=== PATIENT | female | born 1990 ===

== ENCOUNTER 2016-07-24 03:27 | Observation (INO) | payer MEDICAID, OTHER ==
[2016-07-24 03:28] VITALS: BMI 21.9
[2016-07-24 03:45] VITALS: BP 115/70; PULSE 91; RESP 16; TEMP 97.9; O2SAT 100
--- NOTE | 2016-07-24 04:41 | ED PDOC ---
HPI: Female Pain Time Seen by Provider: 07/24/16 03:30 Chief Complaint (Nursing): Female Genitourinary Chief Complaint (Provider): burning urination, dysuria History Per: Patient History/Exam Limitations: no limitations Onset/Duration Of Symptoms: Days (1) Current Symptoms Are (Timing): Still Present Additional Complaint(s): 26yo female EGA 4 months and with PMHx including kidney stones, liver inflammation, cholecystectomy presents to the ED w/ c/o burning urination, dysuria, and associated nausea x 1 day. Patient reports she is taking her vitamins, but has not seen a floor inspector during this and has not had a US during this . Denies vaginal bleeding or any other medical complaints. : 3 Para: 2 Past Medical History Reviewed: Historical Data, Nursing Documentation, Vital Signs Vital Signs: Last Vital Signs Temp 97.9 F 07/24/16 03:39 Pulse 91 H 07/24/16 03:39 Resp 16 07/24/16 03:39 BP 115/70 07/24/16 03:39 Pulse Ox 100 07/24/16 03:39 - Medical History PMH: Anxiety, Bipolar Disorder, Depression, Kidney Stones, Chronic Kidney Disease, Schizophrenia Denies: Diabetes, Hepatitis, HIV, HTN, Seizures, Sexually Transmitted Disease Other PMH: liver inflammation - Surgical History Surgical History: Cholecystectomy, Tonsillectomy - Family History Family History: States: No Known Family Hx - Social History Current smoker - smoking cessation education provided: No Alcohol: None Drugs: Denies - Immunization History Hx Tetanus Toxoid Vaccination: No Hx Influenza Vaccination: No Hx Pneumococcal Vaccination: No - Home Medications Home Medications: Ambulatory Orders Medication Instructions Recorded Multivit/Folic Acid/I 1 tab PO DAILY #100 tab 06/08/16 [] risperiDONE [RisperDAL Tab] 2 mg PO HS #30 tab 06/21/16 - Allergies Allergies/Adverse Reactions: Allergies Allergy/AdvReac Type Severity Reaction Status Date / Time No Known Allergies Allergy Verified 06/15/16 18:40 Review of Systems ROS Statement: Except As Marked, All Systems Reviewed And Found Negative Gastrointestinal: Positive for: Nausea Genitourinary Female: Positive for: Dysuria, Other (burning urination ). Negative for: Vaginal Bleeding Physical Exam - Reviewed Nursing Documentation Reviewed: Yes Vital Signs Reviewed: Yes - Physical Exam Appears: Positive for: Well, No Acute Distress Head Exam: Positive for: ATRAUMATIC, NORMAL INSPECTION, NORMOCEPHALIC Skin: Positive for: Normal Color, Warm, Dry Eye Exam: Positive for: Normal appearance, EOMI, PERRL ENT: Positive for: Normal ENT Inspection Neck: Positive for: Normal, Painless ROM, Supple Cardiovascular/Chest: Positive for: Regular Rate, Rhythm. Negative for: Murmur , Tachycardia Respiratory: Positive for: Normal Breath Sounds. Negative for: Wheezing, Respiratory Distress Gastrointestinal/Abdominal: Positive for: Normal Exam, Bowel Sounds, Soft. Negative for: Tenderness Back: Positive for: Normal Inspection. Negative for: L CVA Tenderness, R CVA Tenderness Extremity: Positive for: Normal ROM. Negative for: Deformity, Swelling Neurologic/Psych: Positive for: Alert, Oriented. Negative for: Motor/Sensory Deficits - ECG O2 Sat by Pulse Oximetry: 100 Pulse Ox Interpretation: Normal (RA) Medical Decision Making Medical Decision Makin: Impression: burning urination and dysuria in setting of Plan: Zofran 4mg PO UA and culture US OB reassess Patient s/o to Dr. Peters at 0700 pending US and UA Scribe Attestation: Documented by Mary Grace Nair acting as a scribe for Darby Pacheco MD. Provider Scribe Attestation: All medical record entries made by the Scribe were at my direction and personally dictated by me. I have reviewed the chart and agree that the record accurately reflects my personal performance of the history, physical exam, medical decision making, and the department course for this patient. I have also personally directed, reviewed, and agree with the discharge instructions and disposition. ED OBSERVATION Date of observation admission: 07/24/16 Time of observation admission: 05:00 - Observation admission statement Patient is being placed in observation because:: burning urination, dysuria in - Goals of Observation Goals of observation are:: pending US Disposition - Clinical Impression Clinical Impression: Genitourinary Pain - Patient ED Disposition Is Patient to be Admitted: Transfer of Care - Disposition Disposition: Transfer of Care Disposition Time: 07:00 Condition: STABLE Patient Signed Over To: Perez Peters Handoff Comments: pending US
[2016-07-24 05:29] LABS: RBC URINE 82 /hpf (0-3); URINE BILIRUBIN NEGATIVE (NEGATIVE); URINE BLOOD MODERATE (NEGATIVE); URINE COLOR YELLOW (YELLOW); URINE GLUCOSE (UA) NEG (Normal); URINE KETONE NEGATIVE (NEGATIVE); URINE LEUKOCYTE ESTERASE TRACE Leu/uL (Negative); URINE PROTEIN NEGATIVE (NEGATIVE); URINE UROBILINOGEN 0.2-1.0 mg/dL (0.2-1.0); WBC URINE 4 /hpf (0-5)
--- NOTE | 2016-07-24 07:08 | ED PDOC ---
- Laboratory Results Interpretation Of Abn Labs: leuk trace - ECG O2 Sat by Pulse Oximetry: 100 Pulse Ox Interpretation: Normal - CT Scan/US US Other Rad Studies (CT/US): Radiology Report Reviewed Other Rad Interpretation: no acute - Progress ED Course And Treament: 924: Pt. had urine preg test done in ER. Neg for preg. Pt. US with no findings. Pt. to fu with pcp. Has possible uti. Is symptomatic uti. AAOx3. Pain free. Tolerated PO. Active. Medical Decision Making Medical Decision Making: Time: 0700 Patient signed out by Dr. Pacheco pending U/S Scribe Attestation: Documented by Ann Bethea acting as a scribe for Perez Peters MD MD Scribe Attestation: All medical record entries made by the Scribe were at my direction and personally dictated by me. I have reviewed the chart and agree that the record accurately reflects my personal performance of the history, physical exam, medical decision making, and the department course for this patient. I have also personally directed, reviewed, and agree with the discharge instructions and disposition. Disposition - Clinical Impression Clinical Impression: Urinary tract infection - POA Present On Arrival: None - Disposition Disposition: Routine/Home Disposition Time: 09:25 Condition: STABLE
--- NOTE | 2016-07-24 10:21 | US ---
HISTORY: early COMPARISON: None available. TECHNIQUE: Transabdominal and transvaginal pelvic ultrasound was performed. FINDINGS: UTERUS: Measures 7.8 x 6.4 x 4.7 cm. Anteverted, normal in size and appearance. No of intrauterine gestation. ENDOMETRIUM: Measures 10 mm in diameter. Normal in appearance. CERVIX: No cervical abnormality identified. RIGHT OVARY: Measures 2.5 x 2.1 x 1.3 cm. No solid mass. Normal flow. LEFT OVARY: Measures 3.2 x 2.7 x 2.7 cm. No solid mass. Normal flow. FREE FLUID: No significant free fluid noted. OTHER FINDINGS: None. IMPRESSION: Normal pelvic ultrasound. No evidence of intrauterine gestation, adnexal mass or free fluid in the pelvis. Correlation with Beta HCG levels and ultrasound follow-up is recommended.
== END 2016-07-24 09:38 | disposition home or self-care (01) ==
LOC: H.ER 03:27 → H.EROBSV 05:05
PROVIDERS: ADMIT Emergency Medicine; ATTEND Emergency Medicine
DX: N39.0 Urinary tract infection, site not specified (principal); F20.9 Schizophrenia, unspecified; F31.9 Bipolar disorder, unspecified; N18.9 Chronic kidney disease, unspecified; F41.9 Anxiety disorder, unspecified

== ENCOUNTER 2016-07-25 21:49 | Emergency (ER) | payer MEDICAID ==
[2016-07-25 21:49] VITALS: BMI 21.9
[2016-07-25 21:56] VITALS: BP 104/63; PULSE 83; RESP 16; TEMP 98.2; O2SAT 100
--- NOTE | 2016-07-25 22:15 | ED PDOC ---
HPI: Abdomen Time Seen by Provider: 07/25/16 21:58 Chief Complaint (Nursing): Back Pain Chief Complaint (Provider): adominal pain History Per: Patient Additional Complaint(s): 26-year-old female presents to emergency department with generalized abdominal pain that started yesterday. Patient states "my gallbladder hurts." Patient is status post gallbladder removal 1 month ago. She denies persistent pain since the surgery. Since yesterday she rates pain as 6 out of 10. No associated nausea , vomiting, diarrhea or constipation. She denies dysuria, vaginal bleeding or vaginal discharge. No associated chest pain, shortness of breath or dyspnea on exertion. Past Medical History Reviewed: Historical Data, Nursing Documentation, Vital Signs Vital Signs: Last Vital Signs Temp 98.2 F 07/25/16 21:53 Pulse 83 07/25/16 21:53 Resp 16 07/25/16 21:53 BP 104/63 07/25/16 21:53 Pulse Ox 100 07/26/16 03:07 - Medical History PMH: Anxiety, Bipolar Disorder, Depression, Kidney Stones, Schizophrenia - Surgical History Surgical History: Cholecystectomy, Tonsillectomy - Family History Family History: States: No Known Family Hx - Living Arrangements Living Arrangements: With Friends/Others - Social History Current smoker - smoking cessation education provided: Yes Alcohol: None Drugs: Denies - Home Medications Home Medications: Ambulatory Orders Medication Instructions Recorded Multivit/Folic Acid/I 1 tab PO DAILY #100 tab 06/08/16 [] risperiDONE [RisperDAL Tab] 2 mg PO HS #30 tab 06/21/16 Ciprofloxacin HCl [Cipro] 250 mg PO BID #6 tab 07/24/16 Naproxen [Naprosyn] 500 mg PO BID #20 tab 07/26/16 - Allergies Allergies/Adverse Reactions: Allergies Allergy/AdvReac Type Severity Reaction Status Date / Time No Known Allergies Allergy Verified 07/25/16 21:52 Review of Systems ROS Statement: Except As Marked, All Systems Reviewed And Found Negative Constitutional: Negative for: Fever, Chills Cardiovascular: Negative for: Chest Pain Respiratory: Negative for: Cough Gastrointestinal: Positive for: Abdominal Pain. Negative for: Nausea, Vomiting , Diarrhea, Constipation Genitourinary Female: Negative for: Dysuria, Frequency, Incontinence, Vaginal Discharge, Vaginal Bleeding Physical Exam - Reviewed Nursing Documentation Reviewed: Yes Vital Signs Reviewed: Yes - Physical Exam Appears: Positive for: Well, Non-toxic, No Acute Distress Skin: Negative for: Rash Cardiovascular/Chest: Positive for: Regular Rate, Rhythm Respiratory: Positive for: Normal Breath Sounds Gastrointestinal/Abdominal: Positive for: Tenderness (Mild diffuse tenderness with no rebound or guarding, no distention, abdomen is soft) Back: Negative for: L CVA Tenderness, R CVA Tenderness Extremity: Positive for: Normal ROM. Negative for: Pedal Edema Neurologic/Psych: Positive for: Alert, Oriented - Laboratory Results Result Diagrams: 07/25/16 22:30 07/25/16 22:30 Urine POC: Negative Urine dip results: Positive for: Blood (small). Negative for: Leukocyte Esterase, Nitrate, Ketones, Glucose, Bilirubin, Protein - ECG O2 Sat by Pulse Oximetry: 100 Pulse Ox Interpretation: Normal - Other Rad CT abd and pelvis with IV contrast X-Ray: Read By Radiologist X-Ray Interpretation: see below Medical Decision Making Medical Decision Makin26 year old with abdominal pain Plan: CBC CMP Lipase CXR CT abd and pelvis with IV contrast IVF IV toradol Urine test Urine dip CT: IMPRESSION: Involuting thick walled cyst within the left ovary, as detailed above. Fat and likely omentum containing umbilical hernia. Otherwise, unremarkable CT examination of the abdomen and pelvis, as detailed above. Patient feels much better after pain meds given, she is aware of all diagnostic testing results, all questions answered. Patient was referred to clinic for follow-up, prescription for Naprosyn was given. Disposition - Clinical Impression Clinical Impression: Abdominal pain - Patient ED Disposition Is Patient to be Admitted: No - Disposition Referrals: [facility] [Provider Group] Disposition: Routine/Home Disposition Time: 03:49 Condition: IMPROVED Additional Instructions: Take prescription medications as directed as needed for pain. Follow-up with primary care doctor or clinic for further evaluation. Prescriptions: Naproxen [Naprosyn] 500 mg PO BID #20 tab Instructions: Abdominal Pain (ED) Results - Lab Results Lab Results: 07/25/16 22:30 WBC 12.7 H RBC 3.74 L Hgb 11.7 L Hct 35.9 MCV 96.1 D MCH 31.3 H MCHC 32.6 L RDW 13.9 Plt Count 278 MPV 8.6 Neut % (Auto) 62.5 Lymph % (Auto) 26.9 Saunders % (Auto) 7.3 Eos % (Auto) 2.8 Baso % (Auto) 0.5 Neut # 8.0 H Lymph # 3.4 Saunders # 0.9 H Eos # 0.4 Baso # 0.1 Sodium 142 Potassium 4.1 Chloride 103 Carbon Dioxide 26 Anion Gap 16 BUN 17 Creatinine 0.7 Est GFR ( Amer) > 60 Est GFR (Non-Af Amer) > 60 Random Glucose 91 Calcium 9.4 Total Bilirubin 0.3 AST 29 ALT 12 Alkaline Phosphatase 65 Total Protein 7.9 Albumin 4.1 Globulin 3.8 Albumin/Globulin Ratio 1.1 Lipase 197
[2016-07-25] MEDS ORDERED: Sodium Chloride 0.9% 1,000 ML IV STA (22:17)
[2016-07-25 22:39] LABS: BASO # 0.1 K/uL (0.0-0.2); BASO % 0.5 % (0.0-2.0); EOS # 0.4 K/uL (0.0-0.7); EOS % 2.8 % (0.0-4.0); HEMATOCRIT 35.9 % (34.0-47.0); LYMPH # 3.4 K/uL (1.0-4.3); LYMPH % 26.9 % (20.0-40.0); MEAN CELL VOLUME 96.1 fl (81.0-99.0); MEAN CORPUSCULAR HEMOGLOBIN 31.3 pg (27.0-31.0); MEAN CORPUSCULAR HGB CONC 32.6 g/dL (33.0-37.0); MEAN PLATELET VOLUME 8.6 fl (7.2-11.7); MONO # 0.9 K/uL (0.0-0.8); MONO % 7.3 % (0.0-10.0); NEUT % 62.5 % (50.0-75.0); NRBC % 0.1 % (0.0-0.0); RED CELL DISTRIBUTION WIDTH 13.9 % (11.5-14.5); WHITE BLOOD COUNT 12.7 K/uL (4.8-10.8)
[2016-07-25 23:07] LABS: ALB/GLOB RATIO 1.1 (1.0-2.1); ALKALINE PHOSPHATASE 65 U/L (38-126); ALT/SGPT 12 U/L (9-52); AST/SGOT 29 U/L (14-36); BILIRUBIN,TOTAL 0.3 mg/dl (0.2-1.3); BLOOD UREA NITROGEN 17 mg/dl (7-17); CALCIUM 9.4 mg/dL (8.4-10.2); CARBON DIOXIDE 26 mmol/L (22-30); CHLORIDE 103 mmol/L (98-107); GFR AFRICAN-AMERICAN > 60; GLUCOSE,RANDOM 91 mg/dL (65-105); LIPASE 197 U/L (23-300); POTASSIUM 4.1 MMOL/L (3.6-5.0); SODIUM 142 mmol/l (132-148); TOTAL PROTEIN 7.9 G/DL (6.3-8.2)
[2016-07-26] MEDS ORDERED: Iohexol 300 100 ML IJ ONE (00:16)
[2016-07-26] MEDS ORDERED: Sodium Chloride 0.9% 50 ML IV ONE (00:17)
--- NOTE | 2016-07-26 10:23 | CT ---
PROCEDURE: CT Abdomen and Pelvis with contrast HISTORY: diffuse abd pain COMPARISON: 04/29/2016 TECHNIQUE: Contrast dose: Not indicated Radiation dose: Total exam DLP = 409.51 mGy-cm. This CT exam was performed using one or more of the following dose reduction techniques: Automated exposure control, adjustment of the mA and/or kV according to patient size, and/or use of iterative reconstruction technique. FINDINGS: LOWER THORAX: Unremarkable. LIVER: Unremarkable. No gross lesion or ductal dilatation. GALLBLADDER AND BILE DUCTS: Status post cholecystectomy PANCREAS: Unremarkable. No gross lesion or ductal dilatation. SPLEEN: Unremarkable. ADRENALS: Unremarkable. No mass. KIDNEYS AND URETERS: Nonobstructing 2 mm calculus lower pole right kidney. No renal mass. No hydronephrosis. VASCULATURE: Unremarkable. No aortic aneurysm. BOWEL: Unremarkable. No obstruction. No gross mural thickening. APPENDIX: Normal appendix. PERITONEUM: Unremarkable. No free fluid. No free air. LYMPH NODES: Unremarkable. No enlarged lymph nodes. BLADDER: Unremarkable. REPRODUCTIVE: Unremarkable uterus. Irregularly-shaped peripherally enhancing 2.2 cm left ovarian involuting/ ruptured cyst. BONES: No acute fracture. OTHER FINDINGS: None. IMPRESSION: Involuting/ruptured left ovarian cyst, 2.2 cm. Nonobstructing 2 mm right lower pole renal calculus. Otherwise unremarkable examination. Preliminary interpretation of this examination was reported by [facility] at 2:38 a.m. on 07/26/2016. There is concurrence of this report with the preliminary interpretation.
== END 2016-07-26 06:17 | disposition home or self-care (01) ==
LOC: H.ER 21:49
DX: R10.9 Unspecified abdominal pain (principal)

== ENCOUNTER 2016-08-08 16:01 | Emergency (ER) | payer MEDICAID ==
[2016-08-08 16:01] VITALS: BMI 21.9
[2016-08-08 16:24] VITALS: BP 118/72; PULSE 79; RESP 16; TEMP 98.4; O2SAT 97
--- NOTE | 2016-08-08 17:01 | ED PDOC ---
Lower Extremity Pain/Injury Time Seen by Provider: 08/08/16 17:14 Chief Complaint (Nursing): Lower Extremity Problem/Injury Chief Complaint (Provider): Left Ankle Injury/Pain History Per: Patient History/Exam Limitations: no limitations Onset/Duration Of Symptoms: Hrs (2 hours prior to arrival) Additional Complaint(s): 17:14 Malathi Crawley, 26 year old female, presents to the ED with an injury to the left ankle. Patient describes twisting her ankle as she was walking on the sidewalk accompanied by her boyfriend approximately 2 hours prior to arrival. Immediately after the accident, the patient sat down and was unable to walk on her own. Patient feels tenderness and pressure on both sides of the left ankle. - Ankle/Foot Description Of Injury: Twisted (Left Ankle) Past Medical History Reviewed: Historical Data, Nursing Documentation, Vital Signs Vital Signs: Last Vital Signs Temp 98.4 F 08/08/16 16:24 Pulse 79 08/08/16 16:24 Resp 16 08/08/16 16:24 BP 118/72 08/08/16 16:24 Pulse Ox 97 08/08/16 16:24 - Medical History PMH: No Chronic Diseases, Anxiety, Bipolar Disorder, Depression, Gall Bladder Disease, Kidney Stones, Chronic Kidney Disease, Schizophrenia Denies: Diabetes, Hepatitis, HIV, HTN, Seizures, Sexually Transmitted Disease - Surgical History Surgical History: Cholecystectomy, Tonsillectomy - Family History Family History: States: Unknown Family Hx - Immunization History Hx Tetanus Toxoid Vaccination: No Hx Influenza Vaccination: No Hx Pneumococcal Vaccination: No - Home Medications Home Medications: Ambulatory Orders Medication Instructions Recorded Multivit/Folic Acid/I 1 tab PO DAILY #100 tab 06/08/16 [] risperiDONE [RisperDAL Tab] 2 mg PO HS #30 tab 06/21/16 Ciprofloxacin HCl [Cipro] 250 mg PO BID #6 tab 07/24/16 Naproxen [Naprosyn] 500 mg PO BID #20 tab 07/26/16 Ibuprofen [Motrin] 600 mg PO Q6 #20 tab 08/08/16 - Allergies Allergies/Adverse Reactions: Allergies Allergy/AdvReac Type Severity Reaction Status Date / Time No Known Allergies Allergy Verified 08/08/16 16:49 Review of Systems Musculoskeletal: Positive for: Foot Pain (Left Ankle Pain) Physical Exam - Reviewed Nursing Documentation Reviewed: Yes Vital Signs Reviewed: Yes - Physical Exam Appears: Positive for: Non-toxic, No Acute Distress Extremity: Positive for: Normal ROM, Tenderness (Low Tenderness to left lateral malleolus). Negative for: Deformity Neurologic/Psych: Positive for: Alert, Oriented - ECG O2 Sat by Pulse Oximetry: 97 (RA) Pulse Ox Interpretation: Normal Medical Decision Making Medical Decision Makin:14 Initial Impression: Left ankle injury/pain Initial Plan: * Ankle AP LAT 2 Views LT [RAD] * Foot AP LAT LT [RAD] * Motrin Tab 600 mg PO STAT * Reevaluation XR both read as negative by ROSEANNA. Lincoln wrap and aircast will be applied to affected ankle for patient comfort, see procedure note for additional details. 18:38 Upon provider reevaluation patient is feeling better, is medically stable, and requires no further treatment in the ED at this time. Patient will be discharged home with Rx for Motrin. Counseling was provided and all questions were answered regarding diagnosis and need for follow up with the podiatry clinic. There is agreement to discharge plan. Return if symptoms persist or worsen. Clinical Impression: ankle injury Scribe Attestation: Documented by Tita Camacho, training under Daksha Olmstead, acting as a scribe for Sena Avilse PA-C. Provider Scribe Attestation: All medical record entries made by the Scribe were at my direction and personally dictated by me. I have reviewed the chart and agree that the record accurately reflects my personal performance of the history, physical exam, medical decision making, and the department course for this patient. I have also personally directed, reviewed, and agree with the discharge instructions and disposition. Procedures - Time-Out Type of Procedure: Splint Site of Procedure: Left Ankle Correct Patient (with visual ID + MR# on ID Band): Yes Correct Procedure: Yes Correct Site Marked: Yes - Splinting Location: Left Ankle Pre-Made Type: aircast Pre-Proc Neuro Vasc Exam: normal Post-Proc Neuro Vasc Exam: normal Progress: Good placement, neurovascularly intact, patient tolerated procedure well with no immediate complications. Disposition - Clinical Impression Clinical Impression: Ankle injury - Patient ED Disposition Is Patient to be Admitted: No Counseled Patient/Family Regarding: Studies Performed, Diagnosis, Need For Followup, Rx Given - Disposition Referrals: Podiatry Clinic [Outside] Disposition: Routine/Home Disposition Time: 18:38 Condition: STABLE Prescriptions: Ibuprofen [Motrin] 600 mg PO Q6 #20 tab Instructions: Ankle Sprain (ED)
--- NOTE | 2016-08-08 18:05 | RAD ---
PROCEDURE: Left Ankle Radiographs. HISTORY: Fall, twist injury COMPARISON: None FINDINGS: BONES: Bone alignment and mineralization are normal. There is no acute fracture or bone destruction. JOINTS: Normal. Ankle mortise maintained. Talar dome intact SOFT TISSUES: Normal. OTHER FINDINGS: None. IMPRESSION: No acute fracture or dislocation.
--- NOTE | 2016-08-08 18:05 | RAD ---
PROCEDURE: Left Foot Radiographs. HISTORY: Fall, twist injury COMPARISON: None. FINDINGS: BONES: Bone alignment and mineralization are normal. There is no acute fracture or bone destruction. JOINTS: Normal. SOFT TISSUES: Normal. OTHER FINDINGS: None. IMPRESSION: No acute fracture or dislocation.
== END 2016-08-08 19:17 | disposition home or self-care (01) ==
LOC: H.ER 16:01
DX: S99.912A Unspecified injury of left ankle, initial encounter (principal); X50.9XXA Other and unspecified overexertion or strenuous movements or postures, initial encounter; Y92.89 Other specified places as the place of occurrence of the external cause

== ENCOUNTER 2016-09-03 09:38 | Emergency (ER) | payer MEDICAID | END 2016-09-03 13:00 | disposition home or self-care (01) | LOC: H.ER 09:38 → H.EDERROR 09:38 | DX: R11.0 Nausea (principal) ==

== ENCOUNTER 2016-09-03 14:40 | Emergency (ER) | payer MEDICAID | END 2016-09-03 16:30 | disposition home or self-care (01) | LOC: H.EDDOWN 14:40 | DX: N91.2 Amenorrhea, unspecified (principal) ==

== ENCOUNTER 2016-09-09 15:35 | Emergency (ER) | payer MEDICAID ==
[2016-09-09 15:35] VITALS: BMI 21.9
[2016-09-09 15:53] VITALS: BP 118/64; RESP 18; TEMP 98.5; O2SAT 100
--- NOTE | 2016-09-09 16:45 | ED PDOC ---
HPI: Female Pain Time Seen by Provider: 09/09/16 16:01 Chief Complaint (Nursing): Female Genitourinary Chief Complaint (Provider): Hematuria, Dysuria, urgency and superpubic pain History Per: Patient History/Exam Limitations: no limitations Onset/Duration Of Symptoms: Hrs Current Symptoms Are (Timing): Still Present Quality Of Discomfort: "Pain" Associated Symptoms: denies: Fever, Nausea, Vomiting, Diarrhea, Back Pain Additional Complaint(s): Malathi Crawley, a 26 year old female, presents to the ED for Hematuria, dysuria , urgency. The patient states that today she developed hematuria, dysuria, urgency and superpubic pain and is concerned that it may be due to an ovarian cyst she was diagnosed with last month. Denies vaginal bleeding, nausea, vomiting, diarrhea, abdominal pain, back pain, flank pain and vaginal discharge. Pt. is requesting US to be done. Abnormal Vaginal Bleeding: No Past Medical History Reviewed: Historical Data, Nursing Documentation, Vital Signs Vital Signs: Last Vital Signs Temp 98.5 F 09/09/16 15:50 Pulse 104 H 09/09/16 15:50 Resp 18 09/09/16 15:50 BP 118/64 09/09/16 15:50 Pulse Ox 100 09/09/16 15:50 - Medical History PMH: Anxiety, Bipolar Disorder, Depression, Gall Bladder Disease, Kidney Stones , Chronic Kidney Disease, Schizophrenia Denies: Diabetes, Hepatitis, HIV, HTN, Seizures, Sexually Transmitted Disease - Surgical History Surgical History: Cholecystectomy, Tonsillectomy - Family History Family History: States: Unknown Family Hx - Immunization History Hx Tetanus Toxoid Vaccination: No Hx Influenza Vaccination: No Hx Pneumococcal Vaccination: No - Home Medications Home Medications: Ambulatory Orders Medication Instructions Recorded Multivit/Folic Acid/I 1 tab PO DAILY #100 tab 06/08/16 [] risperiDONE [RisperDAL Tab] 2 mg PO HS #30 tab 06/21/16 Ciprofloxacin HCl [Cipro] 250 mg PO BID #6 tab 07/24/16 Naproxen [Naprosyn] 500 mg PO BID #20 tab 07/26/16 Ibuprofen [Motrin] 600 mg PO Q6 #20 tab 08/08/16 Nitrofurantoin Macrocrystals 100 mg PO BID #14 cap 09/09/16 [Macrobid] Phenazopyridine [Pyridium] 100 mg PO BID #6 tab 09/09/16 - Allergies Allergies/Adverse Reactions: Allergies Allergy/AdvReac Type Severity Reaction Status Date / Time No Known Allergies Allergy Verified 09/09/16 16:11 Review of Systems Gastrointestinal: Negative for: Nausea, Vomiting, Abdominal Pain Genitourinary Female: Positive for: Dysuria, Frequency, Hematuria, Other ( superpubic pain). Negative for: Vaginal Discharge, Vaginal Bleeding Musculoskeletal: Positive for: Other (No flank pain). Negative for: Back Pain Physical Exam - Reviewed Nursing Documentation Reviewed: Yes Vital Signs Reviewed: Yes - Physical Exam Appears: Positive for: Well, Non-toxic, No Acute Distress Head Exam: Positive for: ATRAUMATIC, NORMOCEPHALIC Gastrointestinal/Abdominal: Positive for: Normal Exam, Bowel Sounds, Soft. Negative for: Tenderness Pelvic Exam: Positive for: Other (No pelvic masses or tenderness to palpation) Back: Positive for: Normal Inspection. Negative for: L CVA Tenderness, R CVA Tenderness Extremity: Positive for: Normal ROM. Negative for: Tenderness, Deformity, Swelling Neurologic/Psych: Positive for: Alert, Oriented - Laboratory Results Urine POC: Negative Urine dip results: Positive for: Leukocyte Esterase (small), Blood (moderate). Negative for: Nitrate, Ketones, Glucose, Bilirubin, Protein - ECG O2 Sat by Pulse Oximetry: 100 (RA) Pulse Ox Interpretation: Normal - Progress ED Course And Treament: Urine culture sent. Pelvic US ordered at the request of pt. Pt. 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 No abdominal or pelvic tenderness. Medical Decision Making Medical Decision Makin:01 Initial Impression: 26 year old female presenting with dysuria, urgency, hematuria and superpubic pain. Initial Plan: * Upreg * Urine dipstick * Urine culture * Pelvis US Scribe Attestation Documented by Sudha Saldaña acting as a scribe for Davion Eduardo PA-C. Provider Attestation: All medical record entries made by the Scribe were at my direction and personally dictated by me. I have reviewed the chart and agree that the record accurately reflects my personal performance of the history, physical exam, medical decision making, and the department course for this patient. I have also personally directed, reviewed, and agree with the discharge instructions and disposition. Disposition - Clinical Impression Clinical Impression: UTI (urinary tract infection) - Patient ED Disposition Is Patient to be Admitted: No - Disposition Referrals: [facility] [Outside] [facility] Disposition: Routine/Home Disposition Time: 17:10 Condition: STABLE Prescriptions: Nitrofurantoin Macrocrystals [Macrobid] 100 mg PO BID #14 cap Phenazopyridine [Pyridium] 100 mg PO BID #6 tab Instructions: Urinary Tract Infection in Women (ED) Print Language: [id number]
[2016-09-09 17:28] VITALS: PULSE 88
== END 2016-09-09 17:27 | disposition home or self-care (01) ==
LOC: H.ER 15:35
DX: N39.0 Urinary tract infection, site not specified (principal); R30.0 Dysuria; F20.9 Schizophrenia, unspecified; F31.9 Bipolar disorder, unspecified; F41.9 Anxiety disorder, unspecified; N18.9 Chronic kidney disease, unspecified

== ENCOUNTER 2016-10-04 14:31 | Emergency (ER) | payer SELFPAY ==
[2016-10-04 14:31] VITALS: BMI 21.9
[2016-10-04 14:44] VITALS: BP 130/63; PULSE 80; RESP 20; TEMP 98.7; O2SAT 98
[2016-10-04 15:42] LABS: HEMATOCRIT 36.1 % (34.0-47.0); MEAN CELL VOLUME 94.7 fl (81.0-99.0); MEAN CORPUSCULAR HEMOGLOBIN 31.2 pg (27.0-31.0); RED CELL DISTRIBUTION WIDTH 12.9 % (11.5-14.5); WHITE BLOOD COUNT 11.8 K/uL (4.8-10.8)
[2016-10-04 15:54] LABS: ALKALINE PHOSPHATASE 58 U/L (38-126); ALT/SGPT 24 U/L (9-52); AST/SGOT 25 U/L (14-36); BILIRUBIN,TOTAL 0.3 mg/dl (0.2-1.3); BLOOD UREA NITROGEN 10 mg/dl (7-17); CALCIUM 9.7 mg/dL (8.4-10.2); CARBON DIOXIDE 26 mmol/L (22-30); CHLORIDE 104 mmol/L (98-107); GFR AFRICAN-AMERICAN > 60; GLUCOSE,RANDOM 89 mg/dL (65-105); POTASSIUM 3.7 MMOL/L (3.6-5.0); SODIUM 143 mmol/l (132-148); TOTAL PROTEIN 8.6 G/DL (6.3-8.2)
[2016-10-04 16:03] LABS: ALB/GLOB RATIO 1.2 (1.0-2.1)
--- NOTE | 2016-10-04 17:01 | US ---
Pelvic ultrasound dated 10/04/2016. History: Vaginal bleeding in . Transvaginal sonographic evaluation of the pelvis performed. Correlation made with prior study 4 11/02. Findings: The uterus is anteverted measuring approximately 9.6 x 6.0 x 4.8 cm. Endometrial stripe is thickened at 1.4 cm. . No evidence of intrauterine gestation. Ectopic cannot be excluded therefore followup serial serum beta HCG and serial pelvic ultrasound must be performed. Right ovary measures 3.3 x 3.0 x 2.2 cm and contains questionable small follicular cyst right ovary exhibits arterial flow. Left ovary measures 3.0 x 1.4 x 1.3 cm and also exhibits arterial flow. Impression: Thickened endometrium however no intrauterine gestation seen. . Ectopic must be excluded with followup serial serum beta HCG and serial pelvic ultrasound. Note that emergency room JESUS Rivera informed these findings at 4:58 p.m. with written down and read back verification. Probable small follicular cyst right ovary.
--- NOTE | 2016-10-04 17:04 | ED PDOC ---
HPI: Female Pain Time Seen by Provider: 10/04/16 14:49 Chief Complaint (Nursing): Female Genitourinary Chief Complaint (Provider): Vaginal spitting x 3 days History Per: Patient History/Exam Limitations: no limitations Onset/Duration Of Symptoms: Days Current Symptoms Are (Timing): Still Present Severity: None Additional Complaint(s): Pt states her last menses was normal on 08/26/16. Pt states the last 3 days she began seen blood when she wiped after urination. PT denies abdominal pain. No N/ V Past Medical History Reviewed: Historical Data, Nursing Documentation, Vital Signs Vital Signs: Last Vital Signs Temp 98.7 F 10/04/16 14:38 Pulse 80 10/04/16 14:38 Resp 20 10/04/16 14:38 BP 130/63 10/04/16 14:38 Pulse Ox 98 10/04/16 14:38 - Medical History PMH: Anxiety, Bipolar Disorder, Depression, Gall Bladder Disease, Kidney Stones , Chronic Kidney Disease, Schizophrenia Denies: Diabetes, Hepatitis, HIV, HTN, Seizures, Sexually Transmitted Disease - Surgical History Surgical History: Cholecystectomy, Tonsillectomy - Family History Family History: States: Unknown Family Hx - Living Arrangements Living Arrangements: With Family - Social History Current smoker - smoking cessation education provided: No Alcohol: None Drugs: Denies - Immunization History Hx Tetanus Toxoid Vaccination: No Hx Influenza Vaccination: No Hx Pneumococcal Vaccination: No - Home Medications Home Medications: Ambulatory Orders Medication Instructions Recorded Multivit/Folic Acid/I 1 tab PO DAILY #100 tab 06/08/16 [] risperiDONE [RisperDAL Tab] 2 mg PO HS #30 tab 06/21/16 Ciprofloxacin HCl [Cipro] 250 mg PO BID #6 tab 07/24/16 Naproxen [Naprosyn] 500 mg PO BID #20 tab 07/26/16 Ibuprofen [Motrin] 600 mg PO Q6 #20 tab 08/08/16 Nitrofurantoin Macrocrystals 100 mg PO BID #14 cap 09/09/16 [Macrobid] Phenazopyridine [Pyridium] 100 mg PO BID #6 tab 09/09/16 - Allergies Allergies/Adverse Reactions: Allergies Allergy/AdvReac Type Severity Reaction Status Date / Time No Known Allergies Allergy Verified 09/09/16 16:11 Review of Systems ROS Statement: Except As Marked, All Systems Reviewed And Found Negative Genitourinary Female: Positive for: Vaginal Bleeding Physical Exam - Reviewed Nursing Documentation Reviewed: Yes Vital Signs Reviewed: Yes - Physical Exam Appears: Positive for: Well, Non-toxic, No Acute Distress Head Exam: Positive for: ATRAUMATIC, NORMAL INSPECTION, NORMOCEPHALIC Skin: Positive for: Normal Color, Warm, DRY Eye Exam: Positive for: Normal appearance ENT: Positive for: Normal ENT Inspection Neck: Positive for: Normal, Painless ROM Cardiovascular/Chest: Positive for: Regular Rate, Rhythm Respiratory: Positive for: Normal Breath Sounds. Negative for: Accessory Muscle Use Gastrointestinal/Abdominal: Positive for: Normal Exam, Bowel Sounds, Soft. Negative for: Tenderness Back: Positive for: Normal Inspection Neurologic/Psych: Positive for: Alert, Oriented - Laboratory Results Result Diagrams: 10/04/16 15:18 10/04/16 15:31 - ECG O2 Sat by Pulse Oximetry: 98 Medical Decision Making Medical Decision Making: No IUP on US. (+) beta Hcg Normal H and H Pt O+ Disposition - Clinical Impression Clinical Impression: Vaginal bleeding in - Patient ED Disposition Is Patient to be Admitted: No Counseled Patient/Family Regarding: Diagnosis, Need For Followup - Disposition Referrals: [facility] [Outside] [facility] [Outside] Disposition: Routine/Home Disposition Time: 17:06 Condition: GOOD Additional Instructions: Repeat labs in 48-72 hours. Instructions: First Trimester Vaginal Bleed (ED)
== END 2016-10-04 17:32 | disposition home or self-care (01) ==
LOC: H.ER 14:31
DX: O20.8 Other hemorrhage in early pregnancy (principal)

== ENCOUNTER 2016-10-15 20:11 | Emergency (ER) | payer SELFPAY ==
[2016-10-15 20:11] VITALS: BMI 21.9
[2016-10-15 20:32] VITALS: BP 110/80; PULSE 69; RESP 16; TEMP 98.3; O2SAT 99
--- NOTE | 2016-10-15 21:43 | ED PDOC ---
HPI: Abdomen Time Seen by Provider: 10/15/16 21:13 Chief Complaint (Nursing): Abdominal Pain Chief Complaint (Provider): abdominal pain History Per: Patient History/Exam Limitations: no limitations Additional Complaint(s): 26yo Fin ED seen 10/04/16 c/o vaginal bleeding while has US showed ? ectopic now in ED for right lower quad pain with vaginal bleeding + blot clots x 4days with associated back pain and nausea without vomiting. pt has not f.u with OBGYN since last ED visit. Past Medical History Reviewed: Historical Data, Nursing Documentation, Vital Signs Vital Signs: Last Vital Signs Temp 98.3 F 10/15/16 20:29 Pulse 69 10/15/16 20:29 Resp 16 10/15/16 20:29 BP 110/80 10/15/16 20:29 Pulse Ox 99 10/15/16 21:46 - Medical History PMH: Anxiety, Bipolar Disorder, Depression, Gall Bladder Disease, Kidney Stones , Chronic Kidney Disease, Schizophrenia Denies: Diabetes, Hepatitis, HIV, HTN, Seizures, Sexually Transmitted Disease - Surgical History Surgical History: Cholecystectomy, Tonsillectomy - Family History Family History: States: Unknown Family Hx - Immunization History Hx Tetanus Toxoid Vaccination: No Hx Influenza Vaccination: No Hx Pneumococcal Vaccination: No - Home Medications Home Medications: Ambulatory Orders Medication Instructions Recorded Multivit/Folic Acid/I 1 tab PO DAILY #100 tab 06/08/16 [] risperiDONE [RisperDAL Tab] 2 mg PO HS #30 tab 06/21/16 Ciprofloxacin HCl [Cipro] 250 mg PO BID #6 tab 07/24/16 Naproxen [Naprosyn] 500 mg PO BID #20 tab 07/26/16 Ibuprofen [Motrin] 600 mg PO Q6 #20 tab 08/08/16 Nitrofurantoin Macrocrystals 100 mg PO BID #14 cap 09/09/16 [Macrobid] Phenazopyridine [Pyridium] 100 mg PO BID #6 tab 09/09/16 - Allergies Allergies/Adverse Reactions: Allergies Allergy/AdvReac Type Severity Reaction Status Date / Time No Known Allergies Allergy Verified 10/15/16 20:29 Review of Systems ROS Statement: Except As Marked, All Systems Reviewed And Found Negative Constitutional: Negative for: Fever, Chills, Malaise Gastrointestinal: Positive for: Abdominal Pain Genitourinary Female: Positive for: Vaginal Bleeding, Pelvic Pain Physical Exam - Reviewed Nursing Documentation Reviewed: Yes Vital Signs Reviewed: Yes - Physical Exam Appears: Positive for: Non-toxic, No Acute Distress Head Exam: Positive for: ATRAUMATIC, NORMAL INSPECTION, NORMOCEPHALIC Skin: Positive for: Normal Color, Warm, DRY Cardiovascular/Chest: Positive for: Regular Rate, Rhythm Respiratory: Positive for: CNT, Normal Breath Sounds Gastrointestinal/Abdominal: Positive for: Bowel Sounds, Soft, Tenderness (RLQ pain pevlic pain) Back: Positive for: Normal Inspection. Negative for: L CVA Tenderness, R CVA Tenderness Extremity: Positive for: Normal ROM Neurologic/Psych: Positive for: Alert, Oriented - Laboratory Results Result Diagrams: 10/15/16 22:42 10/15/16 22:41 - ECG O2 Sat by Pulse Oximetry: 99 - CT Scan/US US Other Rad Studies (CT/US): Radiology Report Reviewed ((-) IUD, ? mass near right ovary) - Progress ED Course And Treament: vaginal bleeding + pelvic pain -f/u with US to r/.o ectopic preg with repeat bHCG, cbc.//cmp/UA - Physician Consult Information Time Consulting Physican Contacted: 23:30 Outcome Of Conversation: on obgyn contacted-suggests pt is having a miscarriage. pt will need to f.u outp. Medical Decision Making Medical Decision Making: pt is stable appearing. no acute distress or pain. pt will need to have pmd follow up outp . Pt Bhcg has decreased from >1000 to <95. pt with stable VS. Disposition - Clinical Impression Clinical Impression: Miscarriage - Patient ED Disposition Is Patient to be Admitted: No Counseled Patient/Family Regarding: Studies Performed, Diagnosis, Need For Followup - Disposition Referrals: [facility] [Outside] [facility] [Outside] Disposition: Routine/Home Disposition Time: 23:32 Condition: STABLE Instructions: Spontaneous Miscarriage (ED)
[2016-10-15 22:43] LABS: BASO # 0.1 K/uL (0.0-0.2); BASO % 0.7 % (0.0-2.0); EOS # 0.4 K/uL (0.0-0.7); EOS % 3.4 % (0.0-4.0); HEMOGLOBIN 12.2 g/dL (12.0-16.0); LYMPH % 25.3 % (20.0-40.0); MEAN CELL VOLUME 94.4 fl (81.0-99.0); MEAN CORPUSCULAR HEMOGLOBIN 31.5 pg (27.0-31.0); MEAN CORPUSCULAR HGB CONC 33.4 g/dL (33.0-37.0); MEAN PLATELET VOLUME 8.4 fl (7.2-11.7); MONO # 0.7 K/uL (0.0-0.8); NEUT # 7.7 K/uL (1.8-7.0); NEUT % 64.6 % (50.0-75.0); RBC 3.87 Mil/uL (3.80-5.20); RED CELL DISTRIBUTION WIDTH 12.5 % (11.5-14.5); WHITE BLOOD COUNT 11.9 K/uL (4.8-10.8)
[2016-10-15 22:53] LABS: ALB/GLOB RATIO 1.2 (1.0-2.1); ALBUMIN 4.7 g/dL (3.5-5.0); ALT/SGPT 29 U/L (9-52); AST/SGOT 26 U/L (14-36); BLOOD UREA NITROGEN 13 mg/dl (7-17); CALCIUM 9.2 mg/dL (8.4-10.2); GFR AFRICAN-AMERICAN > 60; GFR NON-AFRICAN AMERICAN > 60
[2016-10-15 23:05] LABS: SQUAMOUS EPITHIAL 5 /hpf (0-5); URINE BILIRUBIN NEGATIVE (NEGATIVE); URINE BLOOD MODERATE (NEGATIVE); URINE CLARITY SLIGHTY-CLOUDY (Clear); URINE COLOR YELLOW (YELLOW); URINE GLUCOSE (UA) NEG (Normal); URINE LEUKOCYTE ESTERASE TRACE Leu/uL (Negative); URINE NITRATE NEGATIVE (NEGATIVE); URINE PROTEIN NEGATIVE (NEGATIVE)
--- NOTE | 2016-10-15 23:11 | US ---
EXAM: US , Transvaginal CLINICAL HISTORY: 26 years old, female; Pain and signs and symptoms; Lmp or gestational age (in weeks): 08/26/16; Other: Pain/vag bleeding; complicated by abdominal or pelvic pain; Other: Pelvic pain; Additional info: Abd pain with nvaginal bleeding TECHNIQUE: Real-time transvaginal obstetrical ultrasound of the maternal pelvis and a first trimester with image documentation. Transvaginal imaging was used for better evaluation of the fetus and adnexa. EXAM DATE/TIME: Exam ordered 10/15/2016 8:54 PM COMPARISON: No relevant prior studies available. FINDINGS: A report, although no images, are available from the previous ultrasound dated October 04, 2016, noted that at that time there was a thickened endometrium and no intrauterine gestation. Gestation: The uterus measures 6.7 x 2.5 x 4.6 cm. There is no intrauterine gestation. The right ovary measures 2.5 x 1.6 x 2.4 cm. Adjacent to the right ovary there is a heterogeneous echogenic focus, with a rounded morphology, measuring 2 x 1.4 x 2.1 cm. This rounded focus has some peripheral increased flow and an ectopic is a consideration, with other certainly not excluded. Placenta/amniotic fluid: Cannot be adequately evaluated due to the early gestational age. Uterus/cervix: The uterus measures 6.7 x 2.5 x 4.6 cm. There is no intrauterine gestation. Endometrium is 7 mm. The cervix is closed and measures 4.1 cm. No myometrial mass. Ovaries: The right ovary measures 2.5 x 1.6 x 2.4 cm. Adjacent to the right ovary there is a heterogeneous echogenic focus, with a rounded morphology, measuring 2 x 1.4 x 2.1 cm. This rounded focus has some peripheral increased flow and an ectopic is a consideration, with other certainly not excluded. Left ovary measures 1.9 x 1.4 x 1.7 cm with normal morphology. Free fluid: There is a small amount of fluid in the cul-de-sac. IMPRESSION: Beta-hCG not available. There is no evidence of an intrauterine gestation, no evidence of an intrauterine gestation on ultrasound of 10 days prior, suspicious for ectopic remains. Noted that mass adjacent to the right ovary has a broad differential including an ectopic , with multiple other benign and malignant neoplastic etiologies as well as non-GEOPHYSICAL SUPPORT SPECIALIST etiology also in the differential. Comparison to the previous study is strongly advised, noting those images are not available at this time, compare on site. No torsion THIS REPORT CONTAINS FINDINGS THAT MAY BE CRITICAL TO PATIENT CARE. The findings were verbally communicated via telephone conference with Michelle Ferreira PA-C at 11:07 PM EDT on 10/15/2016. The findings were acknowledged and understood.
== END 2016-10-16 00:07 | disposition home or self-care (01) ==
LOC: H.ER 20:11
DX: O03.9 Complete or unspecified spontaneous abortion without complication (principal); Z3A.01 Less than 8 weeks gestation of pregnancy; O26.831 Pregnancy related renal disease, first trimester; R11.0 Nausea; F20.9 Schizophrenia, unspecified; F31.9 Bipolar disorder, unspecified; F41.9 Anxiety disorder, unspecified

== ENCOUNTER 2017-04-24 19:56 | Emergency (ER) | payer MEDICAID ==
[2017-04-24 19:57] VITALS: BMI 21.9
[2017-04-24 20:08] VITALS: BP 124/58; PULSE 91; RESP 16; TEMP 99.6; O2SAT 96
--- NOTE | 2017-04-24 20:35 | ED PDOC ---
HPI: Female Pain Time Seen by Provider: 04/24/17 20:18 Chief Complaint (Nursing): Breast Problem Chief Complaint (Provider): breast pain Additional Complaint(s): 27yo F in Ed for eval of breast pain b/l x 2-3 days. LMP: 03/19/17. Pt admits she is regular with her menstrual. no back pain no dysuria no hematuira no fever Past Medical History Reviewed: Historical Data, Nursing Documentation, Vital Signs Vital Signs: Last Vital Signs Temp 99.6 F 04/24/17 20:04 Pulse 91 H 04/24/17 20:04 Resp 16 04/24/17 20:04 BP 124/58 L 04/24/17 20:04 Pulse Ox 96 04/24/17 20:04 - Medical History PMH: Anxiety, Bipolar Disorder, Depression, Gall Bladder Disease, Kidney Stones , Chronic Kidney Disease, Schizophrenia Denies: Diabetes, Hepatitis, HIV, HTN, Seizures, Sexually Transmitted Disease - Surgical History Surgical History: Cholecystectomy, Tonsillectomy - Family History Family History: States: Unknown Family Hx - Immunization History Hx Tetanus Toxoid Vaccination: No Hx Influenza Vaccination: No Hx Pneumococcal Vaccination: No - Home Medications Home Medications: Ambulatory Orders Medication Instructions Recorded Multivit/Folic Acid/I 1 tab PO DAILY #100 tab 06/08/16 [] risperiDONE [RisperDAL Tab] 2 mg PO HS #30 tab 06/21/16 Ciprofloxacin HCl [Cipro] 250 mg PO BID #6 tab 07/24/16 Naproxen [Naprosyn] 500 mg PO BID #20 tab 07/26/16 Ibuprofen [Motrin] 600 mg PO Q6 #20 tab 08/08/16 Nitrofurantoin Macrocrystals 100 mg PO BID #14 cap 09/09/16 [Macrobid] Phenazopyridine [Pyridium] 100 mg PO BID #6 tab 09/09/16 Multivit/Folic Acid/I 1 tab PO DAILY #60 tab NS 04/24/17 [ Plus] - Allergies Allergies/Adverse Reactions: Allergies Allergy/AdvReac Type Severity Reaction Status Date / Time No Known Allergies Allergy Verified 10/15/16 20:29 Review of Systems ROS Statement: Except As Marked, All Systems Reviewed And Found Negative Constitutional: Negative for: Fever, Chills Gastrointestinal: Negative for: Nausea, Vomiting, Abdominal Pain Physical Exam - Reviewed Nursing Documentation Reviewed: Yes Vital Signs Reviewed: Yes - Physical Exam Appears: Positive for: Well, Non-toxic, No Acute Distress Skin: Positive for: Normal Color, Warm, DRY Cardiovascular/Chest: Positive for: Regular Rate, Rhythm Respiratory: Positive for: CNT, Normal Breath Sounds Gastrointestinal/Abdominal: Positive for: Normal Exam, Bowel Sounds, Soft. Negative for: Tenderness Neurologic/Psych: Positive for: Alert, Oriented - ECG O2 Sat by Pulse Oximetry: 96 Medical Decision Making Medical Decision Making: upreg: (+) PT will need f.u at [facility] started on vit. Disposition - Clinical Impression Clinical Impression: - Patient ED Disposition Is Patient to be Admitted: No Counseled Patient/Family Regarding: Studies Performed, Diagnosis, Need For Followup, Rx Given - Disposition [facility]errals: [facility] [Outside] Disposition: Routine/Home Disposition Time: 20:36 Condition: STABLE Prescriptions: Multivit/Folic Acid/I [ Plus] 1 tab PO DAILY #60 tab NS Instructions: (ED), Morning Sickness (ED)
== END 2017-04-24 21:03 | disposition home or self-care (01) ==
LOC: H.ER 19:56
DX: N64.4 Mastodynia (principal); Z33.1 Pregnant state, incidental; F20.9 Schizophrenia, unspecified; F31.9 Bipolar disorder, unspecified; F41.9 Anxiety disorder, unspecified; Z87.442 Personal history of urinary calculi

== ENCOUNTER 2017-05-09 20:19 | Emergency (ER) | payer MEDICAID ==
[2017-05-09 21:27] VITALS: BMI 21.2
--- NOTE | 2017-05-09 21:35 | ED PDOC ---
HPI: Dental Pain/Injury Time Seen by Provider: 05/09/17 21:30 Chief Complaint (Provider): Dental Pain History Per: Patient History/Exam Limitations: no limitations Onset/Duration Of Symptoms: Days (x1) Current Symptoms Are (Timing): Still Present Additional Complaint(s): 27 year old female presents to the emergency department complaining of left sided dental pain radiating to the left ear for one day. Patient is waiting to make an appointment with her dentist. Has had no medication prior to arrival. Denies any fever or chills. PMD: TBD Past Medical History Reviewed: Historical Data, Nursing Documentation, Vital Signs - Medical History PMH: Anxiety, Bipolar Disorder, Depression, Gall Bladder Disease, Kidney Stones , Chronic Kidney Disease, Schizophrenia Denies: Diabetes, Hepatitis, HIV, HTN, Seizures, Sexually Transmitted Disease - Surgical History Surgical History: Cholecystectomy, Tonsillectomy - Family History Family History: States: Unknown Family Hx - Immunization History Hx Tetanus Toxoid Vaccination: No Hx Influenza Vaccination: No Hx Pneumococcal Vaccination: No - Home Medications Home Medications: Ambulatory Orders Medication Instructions Recorded Multivit/Folic Acid/I 1 tab PO DAILY #100 tab 06/08/16 [] risperiDONE [RisperDAL Tab] 2 mg PO HS #30 tab 06/21/16 Ciprofloxacin HCl [Cipro] 250 mg PO BID #6 tab 07/24/16 Naproxen [Naprosyn] 500 mg PO BID #20 tab 07/26/16 Ibuprofen [Motrin] 600 mg PO Q6 #20 tab 08/08/16 Nitrofurantoin Macrocrystals 100 mg PO BID #14 cap 09/09/16 [Macrobid] Phenazopyridine [Pyridium] 100 mg PO BID #6 tab 09/09/16 Multivit/Folic Acid/I 1 tab PO DAILY #60 tab NS 04/24/17 [ Plus] Acetaminophen [Acetaminophen Extra 2 tab PO Q6 PRN #24 tablet 05/09/17 Strength] Penicillin VK [Penicillin VK Tab] 500 mg PO Q6H #40 tab 05/09/17 - Allergies Allergies/Adverse Reactions: Allergies Allergy/AdvReac Type Severity Reaction Status Date / Time No Known Allergies Allergy Verified 10/15/16 20:29 Review of Systems ROS Statement: Except As Marked, All Systems Reviewed And Found Negative Constitutional: Negative for: Fever, Chills ENT: Positive for: Ear Pain (left), Other (Left sided dental pain) Physical Exam - Reviewed Nursing Documentation Reviewed: Yes Vital Signs Reviewed: Yes - Physical Exam Appears: Positive for: Non-toxic, No Acute Distress Head Exam: Positive for: ATRAUMATIC, NORMAL INSPECTION, NORMOCEPHALIC Skin: Positive for: Normal Color, Warm, Dry Eye Exam: Positive for: EOMI, Normal appearance, PERRL ENT: Positive for: Normal ENT Inspection, TM Is/Are (Normal), Other (Mild gingival inflammation at left lower mandible, no obvious abscess ) Neurologic/Psych: Positive for: Alert, Oriented Medical Decision Making Medical Decision Making: Time: 21:27 Initial Plan: --Pen-Vee K 500 mg --Tylenol 975 mg PO Scribe Attestation: Documented by Angelica Boyd, acting as a scribe for Juli Beasley PA-C Provider Scribe Attestation: All medical record entries made by the Scribe were at my direction and personally dictated by me. I have reviewed the chart and agree that the record accurately reflects my personal performance of the history, physical exam, medical decision making, and the department course for this patient. I have also personally directed, reviewed, and agree with the discharge instructions and disposition. Disposition - Clinical Impression Clinical Impression: Pain, dental - Patient ED Disposition Is Patient to be Admitted: No - Disposition Referrals: Luis Singh DDS [Staff Provider] - Disposition: Routine/Home Disposition Time: 21:50 Condition: FAIR Prescriptions: Acetaminophen [Acetaminophen Extra Strength] 2 tab PO Q6 PRN #24 tablet PRN Reason: Pain, Moderate (4-7) Penicillin VK [Penicillin VK Tab] 500 mg PO Q6H #40 tab Instructions: Toothache (ED) Forms: [employer] ([place]), [facility] School/Work Excuse
[2017-05-09 21:36] VITALS: BP 136/61; PULSE 92; RESP 18; TEMP 98.7; O2SAT 100
== END 2017-05-09 22:13 | disposition home or self-care (01) ==
LOC: H.ER 20:19
DX: K08.89 Other specified disorders of teeth and supporting structures (principal); Z86.59 Personal history of other mental and behavioral disorders; N18.9 Chronic kidney disease, unspecified; Z87.442 Personal history of urinary calculi

== ENCOUNTER 2017-05-23 20:40 | Emergency (ER) | payer MEDICAID ==
[2017-05-23 20:41] VITALS: BMI 21.2
[2017-05-23 20:56] VITALS: BP 118/82; PULSE 90; RESP 16; TEMP 98.2; O2SAT 98
--- NOTE | 2017-05-23 22:02 | ED PDOC ---
HPI: Abdomen <Mallory Romero - Last Filed: 05/23/17 23:56> Chief Complaint (Provider): Bloody Vomit Additional History Per: Patient <Jcarlos Beasley - Last Filed: 05/23/17 23:59> Time Seen by Provider: 05/23/17 20:51 Chief Complaint (Nursing): GI Problem Additional Complaint(s): This is 27 y/o female , 8 weeks , comes to the ED c/o one bloody vomit this morning. Patient admits less than half a tea spoon blood in vomit which was bright red in color. Patient denies any pain, LOF/CTX or bleeding per vagina. Patient denies any dizziness, numbness, tingling, chest pain, abdominal pain. (cJarlos Beasley) Supervising Attending Note - Supervising Attending Note The Documented history was done by the: Physician Direct Chill Caster, Attending Physician The documented physical exam was done by the: Physician Direct Chill Caster, Attending Physician The documented procedures were done by the: Physician Direct Chill Caster, Attending Physician - Attestation: I have personally seen and examined this patient.: Yes I have fully participated in the care of the patient.: Yes I have reviewed all pertinent clinical information: Yes <Mallory Romero - Last Filed: 05/23/17 23:56> Past Medical History <Mallory Romero - Last Filed: 05/23/17 23:56> - Medical History PMH: Anxiety, Bipolar Disorder, Depression, Gall Bladder Disease, Kidney Stones , Chronic Kidney Disease, Schizophrenia Denies: Diabetes, Hepatitis, HIV, HTN, Seizures, Sexually Transmitted Disease - Surgical History Surgical History: Cholecystectomy, Tonsillectomy - Family History Family History: States: Unknown Family Hx - Social History Current smoker - smoking cessation education provided: No Alcohol: None Drugs: Denies - Immunization History Hx Tetanus Toxoid Vaccination: No Hx Influenza Vaccination: No Hx Pneumococcal Vaccination: No <Jcarlos Beasley - Last Filed: 05/23/17 23:59> Vital Signs: Last Vital Signs Temp 98.2 F 05/23/17 20:53 Pulse 90 05/23/17 20:53 Resp 16 05/23/17 20:53 BP 118/82 05/23/17 20:53 Pulse Ox 98 05/23/17 22:06 - Home Medications Home Medications: Ambulatory Orders Medication Instructions Recorded Multivit/Folic Acid/I 1 tab PO DAILY #100 tab 06/08/16 [] risperiDONE [RisperDAL Tab] 2 mg PO HS #30 tab 06/21/16 Ciprofloxacin HCl [Cipro] 250 mg PO BID #6 tab 07/24/16 Naproxen [Naprosyn] 500 mg PO BID #20 tab 07/26/16 Ibuprofen [Motrin] 600 mg PO Q6 #20 tab 08/08/16 Nitrofurantoin Macrocrystals 100 mg PO BID #14 cap 09/09/16 [Macrobid] Phenazopyridine [Pyridium] 100 mg PO BID #6 tab 09/09/16 Multivit/Folic Acid/I 1 tab PO DAILY #60 tab NS 04/24/17 [ Plus] Acetaminophen [Acetaminophen Extra 2 tab PO Q6 PRN #24 tablet 05/09/17 Strength] Penicillin VK [Penicillin VK Tab] 500 mg PO Q6H #40 tab 05/09/17 - Allergies Allergies/Adverse Reactions: Allergies Allergy/AdvReac Type Severity Reaction Status Date / Time No Known Allergies Allergy Verified 10/15/16 20:29 Review of Systems ROS Statement: Except As Marked, All Systems Reviewed And Found Negative <Mallory Romero - Last Filed: 05/23/17 23:56> Constitutional: Negative for: Fever Eyes: Negative for: Vision Change ENT: Negative for: Ear Pain Cardiovascular: Negative for: Chest Pain Respiratory: Negative for: Cough, Shortness of Breath Gastrointestinal: Positive for: Vomiting. Negative for: Abdominal Pain Genitourinary Female: Negative for: Dysuria Musculoskeletal: Negative for: Neck Pain Skin: Negative for: Rash Neurological: Negative for: Weakness, Numbness, Confusion <Jcarlos Beasley - Last Filed: 05/23/17 23:59> Physical Exam - Physical Exam Appears: Positive for: Well, No Acute Distress Head Exam: Positive for: ATRAUMATIC Skin: Positive for: Normal Color Eye Exam: Positive for: Normal appearance Neck: Positive for: Normal Cardiovascular/Chest: Positive for: Regular Rate, Rhythm, Chest Non Tender Respiratory: Positive for: Normal Breath Sounds Gastrointestinal/Abdominal: Positive for: Bowel Sounds, Soft. Negative for: Tenderness Back: Negative for: L CVA Tenderness, R CVA Tenderness Neurologic/Psych: Positive for: Alert, Oriented <Jcarlos Beasley - Last Filed: 05/23/17 23:59> - Laboratory Results Result Diagrams: 05/23/17 22:30 05/23/17 22:30 <Mallory Romero - Last Filed: 05/23/17 23:56> - Laboratory Results Result Diagrams: 05/23/17 22:30 05/23/17 22:30 - ECG O2 Sat by Pulse Oximetry: 98 - Progress Re-evaluation Time: 23:30 Condition: Improved <Jcarlos Beasley - Last Filed: 05/23/17 23:59> - Progress ED Course And Treament: 27 y/o female comes to the ED for evaluation of blood in vomit - CMP, CBC - Urine Preg - TV u/s - Reevaluate Case discussed with Dr. Romero CBC, CMP and labs reviewed with patient TV U/S: IUP live, normal preg Patient agrees with discharge plan (Jcarlos Beasley) Medical Decision Making <Mallory Romero - Last Filed: 05/23/17 23:56> <Jcarlos Beasley - Last Filed: 05/23/17 23:59> Medical Decision Making: Bloody Vomit (Jcarlos Beasley) Disposition - Patient ED Disposition Is Patient to be Admitted: No Doctor Will See Patient In The: Office Counseled Patient/Family Regarding: Studies Performed, Diagnosis, Need For Followup - Disposition Disposition: Routine/Home Disposition Time: 23:49 <Mallory Romero - Last Filed: 05/23/17 23:56> <Jcarlos Beasley - Last Filed: 05/23/17 23:59> - Clinical Impression Clinical Impression: Vomiting, related condition in first trimester - Disposition Referrals: [facility] [Outside] Additional Instructions: Take vitamins. Follow up with your PCP in 2-3 days. Instructions: (ED), Gastritis (ED)
[2017-05-23 22:34] LABS: BASO # 0.1 K/uL (0.0-0.2); BASO % 0.5 % (0.0-2.0); EOS # 0.1 K/uL (0.0-0.7); HEMOGLOBIN 11.7 g/dL (12.0-16.0); LYMPH # 2.6 K/uL (1.0-4.3); LYMPH % 21.4 % (20.0-40.0); MEAN CELL VOLUME 94.2 fl (81.0-99.0); MEAN CORPUSCULAR HGB CONC 32.9 g/dL (33.0-37.0); MEAN PLATELET VOLUME 9.1 fl (7.2-11.7); MONO # 0.8 K/uL (0.0-0.8); MONO % 6.8 % (0.0-10.0); NEUT # 8.5 K/uL (1.8-7.0); NEUT % 70.3 % (50.0-75.0); RBC 3.78 Mil/uL (3.80-5.20); RED CELL DISTRIBUTION WIDTH 12.7 % (11.5-14.5)
[2017-05-23 22:45] LABS: ALB/GLOB RATIO 1.2 (1.0-2.1); ALBUMIN 4.2 g/dL (3.5-5.0); ALT/SGPT 32 U/L (9-52); AST/SGOT 32 U/L (14-36); BLOOD UREA NITROGEN 10 mg/dl (7-17); CALCIUM 9.1 mg/dL (8.4-10.2); GFR AFRICAN-AMERICAN > 60; GFR NON-AFRICAN AMERICAN > 60
--- NOTE | 2017-05-23 23:26 | US ---
EXAM: US , Transvaginal CLINICAL HISTORY: 27 years old, female; Pain; complicated by abdominal or pelvic pain; Lower; First trimester; Gestational age or lmp: 03/19/2017; ; Patient HX: Pt states vomiting blood x1 TECHNIQUE: Real-time transvaginal obstetrical ultrasound of the maternal pelvis and a first trimester with image documentation. Transvaginal imaging was used for better evaluation of the fetus and adnexa. COMPARISON: No relevant prior studies available. FINDINGS: Gestation: Single live intrauterine gestation. heart rate of 164 beats per minute. [place]-rump length of 3.0 cm, correlating with gestational age of 9 weeks 6 days. Uterus/cervix: No subchorionic hemorrhage. No cervical dilatation or effacement. Ovaries: RIGHT ovary: Probable 2.5 x 1.6 x 2.1 cm corpus luteal cyst. LEFT ovary: Normal. No adnexal masses. Free fluid: No significant free fluid. IMPRESSION: 1. Single live intrauterine gestation. 2. Incidental/non-acute findings are described above.
== END 2017-05-24 00:07 | disposition home or self-care (01) ==
LOC: H.ER 20:40
DX: O21.9 Vomiting of pregnancy, unspecified (principal); Z3A.08 8 weeks gestation of pregnancy

== ENCOUNTER 2017-05-26 15:12 | Emergency (ER) | payer MEDICAID ==
[2017-05-26 15:12] VITALS: BMI 21.2
[2017-05-26 15:22] VITALS: BP 121/80; PULSE 95; RESP 16; TEMP 98.2; O2SAT 100
[2017-05-26] MEDS ORDERED: Sodium Chloride 0.9% 1,000 ML IV STA (15:40)
--- NOTE | 2017-05-26 15:46 | ED PDOC ---
HPI: Abdomen Time Seen by Provider: 05/26/17 15:25 Chief Complaint (Nursing): GI Problem Chief Complaint (Provider): Vomiting Blood, Abdominal Pain History Per: Patient History/Exam Limitations: no limitations Current Symptoms Are (Timing): Still Present Additional Complaint(s): Malathi is a 27 y/o female, , who is 8 weeks and presents to the ED c/o 2 episodes of vomiting with a teaspoon of blood each time. Patient also complains of epigastric pain. She was seen in this ED on Wednesday and discharged. PMD: None : 2 Para: 1 Past Medical History Reviewed: Historical Data, Nursing Documentation, Vital Signs Vital Signs: Last Vital Signs Temp 98.2 F 05/26/17 15:16 Pulse 95 H 05/26/17 15:16 Resp 16 05/26/17 15:16 BP 121/80 05/26/17 15:16 Pulse Ox 100 05/26/17 17:40 - Medical History PMH: Anxiety, Bipolar Disorder, Depression, Gall Bladder Disease, Kidney Stones , Chronic Kidney Disease, Schizophrenia Denies: Diabetes, Hepatitis, HIV, HTN, Seizures, Sexually Transmitted Disease - Surgical History Surgical History: Cholecystectomy, Tonsillectomy - Family History Family History: States: Unknown Family Hx - Immunization History Hx Tetanus Toxoid Vaccination: No Hx Influenza Vaccination: No Hx Pneumococcal Vaccination: No - Home Medications Home Medications: Ambulatory Orders Medication Instructions Recorded Multivit/Folic Acid/I 1 tab PO DAILY #100 tab 06/08/16 [] risperiDONE [RisperDAL Tab] 2 mg PO HS #30 tab 06/21/16 Ciprofloxacin HCl [Cipro] 250 mg PO BID #6 tab 07/24/16 Naproxen [Naprosyn] 500 mg PO BID #20 tab 07/26/16 Ibuprofen [Motrin] 600 mg PO Q6 #20 tab 08/08/16 Nitrofurantoin Macrocrystals 100 mg PO BID #14 cap 09/09/16 [Macrobid] Phenazopyridine [Pyridium] 100 mg PO BID #6 tab 09/09/16 Multivit/Folic Acid/I 1 tab PO DAILY #60 tab NS 04/24/17 [ Plus] Acetaminophen [Acetaminophen Extra 2 tab PO Q6 PRN #24 tablet 05/09/17 Strength] Penicillin VK [Penicillin VK Tab] 500 mg PO Q6H #40 tab 05/09/17 Metoclopramide [Reglan] 5 mg PO BID PRN 5 Days tab 05/26/17 - Allergies Allergies/Adverse Reactions: Allergies Allergy/AdvReac Type Severity Reaction Status Date / Time No Known Allergies Allergy Verified 10/15/16 20:29 Review of Systems ROS Statement: Except As Marked, All Systems Reviewed And Found Negative Gastrointestinal: Positive for: Vomiting (2 episodes), Abdominal Pain ( epigastric), Hematemesis Physical Exam - Reviewed Nursing Documentation Reviewed: Yes Vital Signs Reviewed: Yes - Physical Exam Appears: Positive for: Well, Non-toxic, No Acute Distress Cardiovascular/Chest: Positive for: Regular Rate, Rhythm. Negative for: Murmur Respiratory: Positive for: Normal Breath Sounds. Negative for: Respiratory Distress Gastrointestinal/Abdominal: Positive for: Soft, Tenderness (mild epigastric). Negative for: Guarding, Rebound Extremity: Positive for: Normal ROM Neurologic/Psych: Positive for: Alert, Oriented - Laboratory Results Result Diagrams: 05/26/17 16:30 05/26/17 16:30 - ECG O2 Sat by Pulse Oximetry: 100 (RA) Pulse Ox Interpretation: Normal Medical Decision Making Medical Decision Making: Time: 15:40 Initial Impression: Gastritis, Hematemesis, Hyperemesis Graviderum Initial Plan: --CMP --Lipase --Urine Dip --CBC --Reglan Time: 17:00 --Patient transferred to Dr. Peters pending final disposition. Scribe Attestation: Documented by Remington Lomeli, acting as a scribe for Dr. Cherelle Zambrano MD. Provider Scribe Attestation: All medical record entries made by the Scribe were at my direction and personally dictated by me. I have reviewed the chart and agree that the record accurately reflects my personal performance of the history, physical exam, medical decision making, and the department course for this patient. I have also personally directed, reviewed, and agree with the discharge instructions and disposition. Disposition - Clinical Impression Clinical Impression: Hyperemesis gravidarum - Patient ED Disposition Is Patient to be Admitted: Transfer of Care - Disposition Referrals: [facility] [Outside] - 05/31/17 [facility] [Outside] - 05/31/17 Disposition: Transfer of Care Disposition Time: 17:00 Condition: STABLE Additional Instructions: Return if not better in 3 days. Prescriptions: Metoclopramide [Reglan] 5 mg PO BID PRN 5 Days tab PRN Reason: Nausea/Vomiting Instructions: Hyperemesis Gravidarum (ED) Patient Signed Over To: Perez Peters
[2017-05-26 16:43] LABS: BASO % 0.3 % (0.0-2.0); EOS # 0.1 K/uL (0.0-0.7); HEMOGLOBIN 11.4 g/dL (12.0-16.0); LYMPH # 1.8 K/uL (1.0-4.3); LYMPH % 14.6 % (20.0-40.0); MEAN CELL VOLUME 95.4 fl (81.0-99.0); MEAN CORPUSCULAR HEMOGLOBIN 31.4 pg (27.0-31.0); MEAN CORPUSCULAR HGB CONC 32.9 g/dL (33.0-37.0); MEAN PLATELET VOLUME 9.2 fl (7.2-11.7); MONO # 0.6 K/uL (0.0-0.8); MONO % 4.8 % (0.0-10.0); NEUT # 9.9 K/uL (1.8-7.0); NEUT % 79.3 % (50.0-75.0); NRBC % 0.1 % (0.0-0.0); RBC 3.63 Mil/uL (3.80-5.20); RED CELL DISTRIBUTION WIDTH 13.2 % (11.5-14.5); WHITE BLOOD COUNT 12.5 K/uL (4.8-10.8)
[2017-05-26 16:58] LABS: ALB/GLOB RATIO 1.2 (1.0-2.1); ALBUMIN 4.1 g/dL (3.5-5.0); ALT/SGPT 27 U/L (9-52); AST/SGOT 22 U/L (14-36); BLOOD UREA NITROGEN 6 mg/dl (7-17); CALCIUM 9.2 mg/dL (8.4-10.2); GFR AFRICAN-AMERICAN > 60; GFR NON-AFRICAN AMERICAN > 60; LIPASE 194 U/L (23-300)
--- NOTE | 2017-05-26 17:01 | ED PDOC ---
- Laboratory Results Result Diagrams: 05/26/17 16:30 05/26/17 16:30 Interpretation Of Abn Labs: 12.5 wbc - ECG O2 Sat by Pulse Oximetry: 100 (RA) Pulse Ox Interpretation: Normal - Progress ED Course And Treament: 1700: Took over care from Dr. Zambrano. Fu on labs and dispo. Hyperemesis gravidarum likely. Here few days ago for same. 173: Stable. AAOx3. Pain free. Tolerated po. Fu with pcp. Rx reglan. Disposition - Clinical Impression Clinical Impression: Hyperemesis gravidarum - POA Present On Arrival: None - Disposition Referrals: [facility] [Outside] - 05/31/17 [facility] [Outside] - 05/31/17 Disposition: Routine/Home Disposition Time: 17:38 Condition: STABLE Additional Instructions: Return if not better in 3 days. Prescriptions: Metoclopramide [Reglan] 5 mg PO BID PRN 5 Days tab PRN Reason: Nausea/Vomiting Instructions: Hyperemesis Gravidarum (ED)
== END 2017-05-26 18:08 | disposition home or self-care (01) ==
LOC: H.ER 15:12
DX: O21.0 Mild hyperemesis gravidarum (principal); F20.9 Schizophrenia, unspecified
CPT/HCPCS: 80053; 83690; 85025; 96374; 99283; J2765; J7040

== ENCOUNTER 2017-05-31 20:04 | Inpatient (IN) | payer MEDICAID ==
[2017-05-31 20:04] VITALS: BMI 21.2
[2017-05-31 20:09] VITALS: O2SAT 98
--- NOTE | 2017-05-31 21:06 | ED PDOC ---
HPI: Psych/Substance Abuse Time Seen by Provider: 05/31/17 20:14 Chief Complaint (Nursing): Anxiety Chief Complaint (Provider): crisis eval History Per: Patient Additional Complaint(s): 27 y/o female history of schizophrenia brought in by EMS for crisis eval. Patient states she was told by DYFS that she could see her children but when she went to their grandmother's house she said she can't see them. Patient states she became very upset and had a "panic attacK". Patient states family called 911 because things were escalading. Patient states she has not been taking her psych meds because she is 8 weeks and reports hearing voices and seeing black shadows. Patient denies suicidal/homicidal ideations, drug/alcohol use, acute medical complaints. Past Medical History Reviewed: Historical Data, Nursing Documentation, Vital Signs Vital Signs: Last Vital Signs Temp 98 F 05/31/17 20:05 Pulse 133 H 05/31/17 20:05 Resp 16 05/31/17 20:05 BP 115/69 05/31/17 20:05 Pulse Ox 98 05/31/17 20:05 - Medical History PMH: Anxiety, Bipolar Disorder, Depression, Gall Bladder Disease, Kidney Stones , Chronic Kidney Disease, Schizophrenia Denies: Diabetes, Hepatitis, HIV, HTN, Seizures, Sexually Transmitted Disease - Surgical History Surgical History: Cholecystectomy, Tonsillectomy - Family History Family History: States: Unknown Family Hx - Immunization History Hx Tetanus Toxoid Vaccination: No Hx Influenza Vaccination: No Hx Pneumococcal Vaccination: No - Home Medications Home Medications: Ambulatory Orders Medication Instructions Recorded Multivit/Folic Acid/I 1 tab PO DAILY #100 tab 06/08/16 [] risperiDONE [RisperDAL Tab] 2 mg PO HS #30 tab 06/21/16 Ciprofloxacin HCl [Cipro] 250 mg PO BID #6 tab 07/24/16 Naproxen [Naprosyn] 500 mg PO BID #20 tab 07/26/16 Ibuprofen [Motrin] 600 mg PO Q6 #20 tab 08/08/16 Nitrofurantoin Macrocrystals 100 mg PO BID #14 cap 09/09/16 [Macrobid] Phenazopyridine [Pyridium] 100 mg PO BID #6 tab 09/09/16 Multivit/Folic Acid/I 1 tab PO DAILY #60 tab NS 04/24/17 [ Plus] Acetaminophen [Acetaminophen Extra 2 tab PO Q6 PRN #24 tablet 05/09/17 Strength] Penicillin VK [Penicillin VK Tab] 500 mg PO Q6H #40 tab 05/09/17 Metoclopramide [Reglan] 5 mg PO BID PRN 5 Days tab 05/26/17 - Allergies Allergies/Adverse Reactions: Allergies Allergy/AdvReac Type Severity Reaction Status Date / Time No Known Allergies Allergy Verified 10/15/16 20:29 Review of Systems ROS Statement: Except As Marked, All Systems Reviewed And Found Negative Psych: Positive for: Anxiety, Psychosis Physical Exam - Reviewed Nursing Documentation Reviewed: Yes Vital Signs Reviewed: Yes - Physical Exam Appears: Positive for: Well, Non-toxic, No Acute Distress Head Exam: Positive for: ATRAUMATIC, NORMAL INSPECTION, NORMOCEPHALIC Skin: Positive for: Normal Color Eye Exam: Positive for: Normal appearance ENT: Positive for: Normal ENT Inspection Cardiovascular/Chest: Positive for: Regular Rate, Rhythm Respiratory: Positive for: Normal Breath Sounds Gastrointestinal/Abdominal: Positive for: Normal Exam Back: Positive for: Normal Inspection Extremity: Positive for: Normal ROM Neurologic/Psych: Positive for: Alert, Oriented - Laboratory Results Result Diagrams: 05/31/17 22:27 05/31/17 22:27 - ECG O2 Sat by Pulse Oximetry: 98 - Progress ED Course And Treament: Patient evaluated by marriage and family social worker; to be admitted as per Dr. Shook. Disposition - Clinical Impression Clinical Impression: Anxiety, Schizoaffective disorder, bipolar type - Disposition Disposition Time: 00:30 Condition: STABLE Patient Signed Over To: Alexia Rivera Handoff Comments: pending u/a and admission to [facility]
[2017-05-31 22:57] LABS: BASO # 0.1 K/uL (0.0-0.2); BASO % 0.9 % (0.0-2.0); EOS # 0.3 K/uL (0.0-0.7); EOS % 2.1 % (0.0-4.0); HEMOGLOBIN 11.7 g/dL (12.0-16.0); LYMPH # 3.2 K/uL (1.0-4.3); LYMPH % 21.7 % (20.0-40.0); MEAN CORPUSCULAR HEMOGLOBIN 31.6 pg (27.0-31.0); MEAN CORPUSCULAR HGB CONC 33.3 g/dL (33.0-37.0); MEAN PLATELET VOLUME 9.5 fl (7.2-11.7); MONO # 0.6 K/uL (0.0-0.8); MONO % 4.4 % (0.0-10.0); NEUT # 10.3 K/uL (1.8-7.0); NEUT % 70.9 % (50.0-75.0); RBC 3.7 Mil/uL (3.80-5.20); RED CELL DISTRIBUTION WIDTH 13.5 % (11.5-14.5); WHITE BLOOD COUNT 14.6 K/uL (4.8-10.8)
[2017-05-31 23:20] LABS: ALB/GLOB RATIO 1.1 (1.0-2.1); ALBUMIN 4.3 g/dL (3.5-5.0); ALT/SGPT 26 U/L (9-52); AST/SGOT 26 U/L (14-36); BLOOD UREA NITROGEN 9 mg/dl (7-17); CALCIUM 9.8 mg/dL (8.4-10.2); GFR AFRICAN-AMERICAN > 60; GFR NON-AFRICAN AMERICAN > 60
[2017-06-01 00:04] LABS: BARBITURATES, UR NEGATIVE (NEGATIVE); BENZODIAZEPINES, UR NEGATIVE (NEGATIVE); OPIATES, UR NEGATIVE (NEGATIVE); PHENCYCLIDINE, UR NEGATIVE (NEGATIVE)
[2017-06-01 00:28] LABS: SQUAMOUS EPITHIAL 2 /hpf (0-5); URINE BACTERIA RARE (<OCC); URINE BILIRUBIN NEGATIVE (NEGATIVE); URINE BLOOD NEGATIVE (NEGATIVE); URINE CLARITY TURBID (Clear); URINE COLOR YELLOW (YELLOW); URINE GLUCOSE (UA) NEG (Normal); URINE LEUKOCYTE ESTERASE MOD Leu/uL (Negative); URINE NITRATE NEGATIVE (NEGATIVE); URINE PROTEIN NEGATIVE (NEGATIVE); URINE UROBILINOGEN 0.2-1.0 mg/dL (0.2-1.0)
--- NOTE | 2017-06-01 01:33 | ED PDOC ---
- Laboratory Results Result Diagrams: 05/31/17 22:27 05/31/17 22:27 - ECG O2 Sat by Pulse Oximetry: 98 Pulse Ox Interpretation: Normal Medical Decision Making Medical Decision Making: Yeast in urine. 8 weeks . Pt with no symptoms. Discussed with Dr. Dumont. Disposition - Clinical Impression Clinical Impression: Anxiety, Schizoaffective disorder, bipolar type - POA Present On Arrival: None - Disposition Disposition: Admitted as In-Patient Disposition Time: 01:33 Condition: STABLE
[2017-06-01] MEDS ORDERED: DiphenhydrAMINE 50 mg/ml Inj IM PRN (04:06)
[2017-06-01] MEDS ORDERED: Alum-Mag Hydrox-Simethicone Susp (30 mL) PO PRN (04:06)
[2017-06-01] MEDS ORDERED: Magnesium Hydroxide Susp 30 ml UD PO PRN (04:06)
--- NOTE | 2017-06-01 04:21 | PCM.BM ---
<Ghassan Ayala - Last Filed: 06/01/17 04:19> Treatment Plan Problems - Problems identified on initial assessmt Problem 2 Date Initiated: 06/01/17 Time Initiated: 04:20 Assessment reference: RODY Treatment assets and liabiliti Patient Assests: cooperative, self-reliant, ADL independent, physically healthy , negotiates basic needs Patient Liabilities: poor support system, relationship conflicts, other ( psychosis) - Milieu Protocol Maintain good personal hygiene: daily Encourage regular showers, daily Remind patient to perform daily oral care, daily Assist patient to perform ADL's Maintain personal safety: every shift Educate patient to report safety concerns to staff, every shift Monitor environment for contraband/sharps Medication safety: Monitor for expected outcome, potential side effects: every shift, Assess barriers to learning: every shift, Assess readiness for medication education: every shift <CelestepurnimaRika - Last Filed: 06/03/17 16:05> Treatment assets and liabiliti Patient Assests: adapts well, cooperative, motivated, resourceful, self-reliant , ADL independent, physically healthy, negotiates basic needs, cognitively intact Patient Liabilities: poor support system, relationship conflicts, other ( psychosis- pt currently and unable to undergo proper medication management) Family Contact Family involvement: Family/SO is involved Family contact: Patient agrees to contact, Family has been contacted by patient , Telephone contact initiated by staff Family contact name: William Crawley- uncle Family contacted how many times per week?: 2 Family contact comment: Stationary Fireman placed all to patients uncle/primary support ( William Crawley) to discuss patients progress on 3NP and anticipated discharge of 06/04. Stationary Fireman explained that secondary to patients she has not been placed on medications appropriate for her dx. However no harmful behaviors have been noted on 3NP and patient appears to be at baseline. Stationary Fireman emphasized importance of compliance with [facility], more so now that patient is not on her medication regimen, to ensure safety in the community and reduce risk of future hospitalizations. Mr. Crawley expressed understanding of the above and concerns regarding patients hx of noncompliance. Additional psychoeducation provided. Patients uncle reports he will message patients fianc this evening to schedule a pick-up time. - Outside Agency Agency 1 Care involvment: Following patient during stay, Information-sharing, Other Agency contact name: [facility] Agency contact number: [phone] Agency 2 Care involvment: Following patient during stay, Information-sharing, Other Agency contact name: [facility] [place] Agency contact number: [phone] - Goals for Treatment Patient goals for treatment: Patient to continue stabilization on 3NP through medication management andgroup/supportive therapy. Patient to be encouraged to attend groups regularly to promote self-awareness, compliance, and improve insight, coping skills and self-esteem. Patient to be provided with referral for appropriate level of aftercare to reduce risk of future hospitalizations and ensure safety in the community. Discharge/Continuing Care - Education Needs Education Needs: Family Medication, Family Coping Skills, Family Community resources, Family Aftercare Safety Plan, Patient Medication, Patient Coping Skills, Patient Anger Management skills, Patient Community resources, Patient Aftercare Safety Plan - Discharge Discharge Criteria: Free of Suicidal thoughts, Free of Homicidal thoughts, Free of agitation, Normal sleep pattern, Ability to care for self, Reduction of target symptoms Discharge to:: Home (patient & fiance currently staying with a friend- asked to leave by end of month) <Cassie Callejas - Last Filed: 06/04/17 10:43> - Diagnosis (1) Schizoaffective disorder Status: Acute Interventions: psychotherapy 06/02/17 13:49
[2017-06-01 10:09] LABS: T4 12.5 ug/dl (5.5-11.0)
[2017-06-01 10:23] LABS: T3 1.78 nmol/L (1.49-2.60)
--- NOTE | 2017-06-01 14:34 | PCM.PSYCH ---
Initial Psychiatric Evaluation - Initial Psychiatric Evaluation Type of Admission: Voluntary Legal Status: Capacity Chief Complaint (in patient's own words): I had a fight with my mother in law Patient's Reaction to Hospitalization: pt agreed to get help History of Present Illness and Precipitating Events: pt with previous psychiatric diagnosis of schizoaffective disorder currently follows up at [facility] daily, pt is 8weeks pt was brought to the ED via EMS, secondary to having an argument with ex- [id number] due to a custody christopher. pt has been taken off her medications because of , reported lately has been irritable and experiencing auditory hallucinations non command type, hearing her boyfriend name pt denied any current suicidal or homicidal ideations Current Medications: Active Medications Generic Name Dose Route Start Last Admin Trade Name Freq PRN Reason Stop Dose Admin Acetaminophen 650 mg 06/01/17 04:06 Tylenol 325mg Tab PO Q4 PRN T>101;Headache;Pain 1-7 Al Hydrox/Mg Hydrox/Simethicone 30 ml 06/01/17 04:06 Maalox Plus 30 Ml PO Q4 PRN Dyspepsia Diphenhydramine HCl 50 mg 06/01/17 04:06 Benadryl IM Q6 PRN Extrapyramidal S/S Unable PO Diphenhydramine HCl 50 mg 06/01/17 04:06 Benadryl PO Q6 PRN Extrapyramidal Symptoms Diphenhydramine HCl 50 mg 06/01/17 04:10 Benadryl PO HS PRN Sleep Haloperidol 5 mg 06/01/17 04:06 Haldol PO Q4 PRN Agitation Magnesium Hydroxide 30 ml 06/01/17 04:06 Milk Of Magnesia PO HS PRN Constipation Past Psychiatric History - Past Psychiatric History Explanation of prior treatment: multiple inpatient hospitalizations due to disorganized thought process History of ETOH/Drug Use: denied Pertinent Medical Hx (Current Medical&Sleep Prob, Allergies): Allergies Allergy/AdvReac Type Severity Reaction Status Date / Time No Known Allergies Allergy Verified 10/15/16 20:29 Mental Status Examination - Personal Presentation Personal Presentation: Looks stated age Additional comments: unkempt disheveled - Affect Affect: Constricted - Motor Activity Motor Activity: Psychomotor Agitation - Reliability in Providing Information Reliability in Providing Information: Poor, due to alteration in thoughts, Poor , due to altered mood - Speech Speech: Disorganized - Mood Mood: Anxious - Formal Thought Process Formal Thought Process: Hallucinations, Circumstantial Additional comments: pt reported non command auditory hallucinations - Obsessions/Compulsions Obsessions: No Compulsions: No - Cognitive Functions Orientation: Person, Place Sensorium: Alert Attention/Concentration: Easily distracted Abstract Thinking: [place] Estimate of Intelligence: Below average Judgement: Imparied, as evidence by: Poor judgement, Imparied, as evidence by: Lack of insight into illness - Risk Risk: Diminished functioning - Strength & Assets Inventory Strength & Assets Inventory: Life experience - Limitations Additional comments: poor social support DSM 5 DX - DSM 5 DSM 5 Diagnosis: schizoaffective disorder bipolar - Recommended/Plan of Treatment Treatment Recommendations and Plan of Treatment: discussed with pt risk and benifits of taking medications with pt will benifit from therapy and inpatient intensive therapeutic mill[facility] will place pt on prn haldol group and supportive therapy Projected ELOS: 7 days Discharge Plan and Discharge Criteria: pt mental status stable
[2017-06-02] MEDS ORDERED: Petrolatum UD PAK TOP PRN (13:39)
--- NOTE | 2017-06-02 13:55 | PCM.PYCHPN ---
Psychiatric Progress Note - Psychiatric Progress Note Patient seen today, length of contact: pt evaluated discussed with team chart reviewed Patient Chief Complaint: I am better but I still hear voices calling my boyfriend Problems Identified/Issues Discussed: pt seen on the unit, calmer less irritable and less disorganized, pt reported good sleep and appetite, continues to have non command auditory hallucinations, discussed with pt risk and benifits a standing dose of haloperidol pt preffered to be off medication for now because of the , denied suicidal or homicidal ideations Medical Problems: multiple inpatient hospitalizations due to disorganized thought process DSM 5 Symptoms Update: schizoaffective disorder bipolar Medication Change: No Medical Record Reviewed: Yes Mental Status Examination - Cognitive Function Orientation: Person, Place, Situation Memory: Intact Attention: WNL Concentration: Poor Association: WNL Fund of Knowledge: Poor - Mood Mood: Anxious - Affect Affect: Constricted - Speech Speech: Loud - Formal Thought Process Formal Thought Process: Hallucinations, Circumstantial Psychotic Thoughts and Behaviors: pt reported non command auditory hallucinations - Suicidal Ideation Suicidal Ideation: No - Homicidal Ideation Homicidal Ideation: Yes Goal/Treatment Plan - Goal/Treatment Plan Need for Continued Stay: Discharge may exacerbated symptoms Progress Toward Problem(s) and Goals/Treatment Plan: discussed with pt risk and benifits of taking medications with pt will benifit from therapy and [facility] pt on prn haldol group and supportive therapy Estimated Date of D/C: 06/04/17
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
--- NOTE | 2017-06-03 15:28 | PCM.PYCHPN ---
Psychiatric Progress Note - Psychiatric Progress Note Patient seen today, length of contact: pt evaluated discussed with team chart reviewed Patient Chief Complaint: I am attending all the groups to feel better Problems Identified/Issues Discussed: pt on evaluation , more kempt , speech less pressured disorganized and thought process continues to be circumstantial, pt seen interacting with other patients , attending groups, denied any current suicidal or homicidal ideations, reported the auditory hallucinations less in frequency and non command in nature Medical Problems: multiple inpatient hospitalizations due to disorganized thought process DSM 5 Symptoms Update: schizoaffective disorder bipolar Medication Change: No Medical Record Reviewed: Yes Mental Status Examination - Cognitive Function Orientation: Person, Place, Situation Memory: Intact Attention: WNL Concentration: Poor Association: WNL Fund of Knowledge: Poor - Mood Mood: Anxious - Affect Affect: Constricted - Speech Speech: Loud - Formal Thought Process Formal Thought Process: Hallucinations, Circumstantial Psychotic Thoughts and Behaviors: pt reported non command auditory hallucinations - Suicidal Ideation Suicidal Ideation: No - Homicidal Ideation Homicidal Ideation: Yes Goal/Treatment Plan - Goal/Treatment Plan Need for Continued Stay: Discharge may exacerbated symptoms Progress Toward Problem(s) and Goals/Treatment Plan: pt attending groups, calmer will continue with psychotherapy pt on prn haldol group and supportive therapy Estimated Date of D/C: 06/04/17
[2017-06-03 16:34] VITALS: TEMP 98.2
[2017-06-04 09:30] VITALS: BP 112/75; PULSE 86; RESP 18
--- NOTE | 2017-06-04 11:24 | PCM.PYCHDC ---
Mental Status Examination - Mental Status Examination Orientation: Person, Place, Situation, Time Memory: Intact Mood: Neutral Affect: Broad Speech: Appropriate Attention: WNL Concentration: WNL Association: WNL Fund of Knowledge: WNL Formal Thought Process: Circumstantial Description of patient's judgement and insight: fair insight and judgment Psychotic Thoughts and Behaviors: pt denied any current perceptual disturbances Suicidal Ideation: No Current Homicidal Ideation?: No Discharge Summary - Discharge Note Reason for Hospitalization: pt agreed to get help t with previous psychiatric diagnosis of schizoaffective disorder currently follows up at [facility] daily, pt is 8weeks pt was brought to the ED via EMS, secondary to having an argument with ex- [id number] due to a custody christopher. pt has been taken off her medications because of , reported lately has been irritable and experiencing auditory hallucinations non command type, hearing her boyfriend name pt denied any current suicidal or homicidal ideations Consultations:: List each consultation separately and include: 1. Reason for request. 2. Findings. 3. Follow-up Summary of Hospital Course include:: 1. Description of specific treatment plan utilized for patients during their course of treatmen. 2. Summarize the time- course for resolution of acute symptoms and/or regressed behaviors. 3. Describe issues identified and worked on during hospitalization. 4. Describe medication utilized. 5. Describe medical problems identified and treated. 6. Reassessment of suicide risk Summary of Hospital Course: pt on unit was cooperative, attended groups,CBT supportive therapy provided as pt was she was placed on haldol prn only pt on discharge mental status was stable , denied any suicidal or homicidal ideations, denied peceptual disturbances pt on discharge was not danger to self or others - Diagnosis (1) Schizoaffective disorder Status: Acute - Final Diagnosis (DSM 5) Condition upon Discharge: STABLE Disposition: HOME/ ROUTINE Follow-up Treatment Plan: pt attending groups, calmer will continue with psychotherapy pt on prn haldol group and supportive therapy Prescriptions/Medication Reconciliation: Petrolatum [Vaseline Oint] 1 pkt TOP BIDHS PRN #1 fp PRN Reason: Dry Skin - Antipsychotic Medications Pt discharged on 2 or more routine antipsychotic medications: No
== END 2017-06-04 10:20 | disposition home or self-care (01) | DRG 886 ==
LOC: H.ER 20:04 → H.ERHOLD 06-01 01:34 → H.PSYCH 06-01 03:08
PROVIDERS: ADMIT Psychiatry & Neurology Psychiatry; ATTEND Psychiatry & Neurology Psychiatry
PROC: GZHZZZZ Group Psychotherapy (ICD-10-PCS; principal; 2017-06-01)
PROC: GZ58ZZZ Individual Psychotherapy, Cognitive-Behavioral (ICD-10-PCS; 2017-06-01)
PROC: GZ56ZZZ Individual Psychotherapy, Supportive (ICD-10-PCS; 2017-06-01)
DX: O99.341 Other mental disorders complicating pregnancy, first trimester (principal); F25.9 Schizoaffective disorder, unspecified; Z3A.08 8 weeks gestation of pregnancy

== ENCOUNTER 2017-06-06 03:44 | Emergency (ER) | payer MEDICAID ==
[2017-06-06 03:44] VITALS: BMI 21.2
[2017-06-06 03:57] VITALS: TEMP 98; O2SAT 100
--- NOTE | 2017-06-06 04:58 | ED PDOC ---
HPI: Back Time Seen by Provider: 06/06/17 04:21 Chief Complaint (Nursing): GI Problem Chief Complaint (Provider): Back Pain History Per: Patient History/Exam Limitations: no limitations Onset/Duration Of Symptoms: Days (2) Current Symptoms Are (Timing): Still Present Quality Of Discomfort: "Pain" Severity: Moderate Previous Symptoms: Back Pain Additional History Per: Patient Additional Complaint(s): 27 y/o female , 11 week female, complaining of back pain x2 days, associated with nausea and x3 episodes of vomiting. She denies abdominal pain, urinary complaints, vaginal bleeding, vaginal discharge, fever, cough, or other complaint. Patient reports that she has had back pain in the past and denies medications for this. Patient was discharged from Inpatient Psych yesterday. Past Medical History Vital Signs: Last Vital Signs Temp 98 F 06/06/17 03:53 Pulse 87 06/06/17 03:53 Resp 18 06/06/17 03:53 BP 108/60 06/06/17 03:53 Pulse Ox 100 06/06/17 03:53 - Medical History PMH: Anxiety, Bipolar Disorder, Depression, Gall Bladder Disease ( cholecyctectomy), Kidney Stones, Chronic Kidney Disease, Schizophrenia Denies: Diabetes, Hepatitis, HIV, HTN, Seizures, Sexually Transmitted Disease - Surgical History Surgical History: Cholecystectomy, Tonsillectomy - Family History Family History: States: Unknown Family Hx - Social History Current smoker - smoking cessation education provided: No Alcohol: None Drugs: Denies - Immunization History Hx Tetanus Toxoid Vaccination: No Hx Influenza Vaccination: No Hx Pneumococcal Vaccination: No - Home Medications Home Medications: Ambulatory Orders Medication Instructions Recorded Petrolatum [Vaseline Oint] 1 pkt TOP BIDHS PRN #1 fp 06/04/17 Doxylamine/Pyridoxine HCl (B6) 1 - 2 each PO HS #16 tablet. 06/07/17 [Raul Calvert 10-10 mg Tablet] - Allergies Allergies/Adverse Reactions: Allergies Allergy/AdvReac Type Severity Reaction Status Date / Time No Known Allergies Allergy Verified 06/07/17 03:57 Review of Systems ROS Statement: Except As Marked, All Systems Reviewed And Found Negative Gastrointestinal: Positive for: Nausea, Vomiting Musculoskeletal: Positive for: Back Pain Physical Exam - Reviewed Nursing Documentation Reviewed: Yes Vital Signs Reviewed: Yes - Physical Exam Appears: Positive for: Well, Non-toxic, No Acute Distress Head Exam: Positive for: ATRAUMATIC, NORMAL INSPECTION, NORMOCEPHALIC Skin: Positive for: Normal Color, Warm, DRY Eye Exam: Positive for: EOMI, Normal appearance, PERRL ENT: Positive for: Normal ENT Inspection Neck: Positive for: Normal, Painless ROM Cardiovascular/Chest: Positive for: Regular Rate, Rhythm Respiratory: Positive for: CNT, Normal Breath Sounds Gastrointestinal/Abdominal: Positive for: Normal Exam, Bowel Sounds, Soft Back: Positive for: Other (Lumbar TTP). Negative for: Normal Inspection, Decreased ROM Extremity: Positive for: Normal ROM Neurologic/Psych: Positive for: Alert, Oriented, Mood/Affect (flat) - Laboratory Results Result Diagrams: 06/06/17 05:21 06/06/17 05:21 - ECG O2 Sat by Pulse Oximetry: 100 Medical Decision Making Medical Decision Making: Impression: 27 y/o female with back pain Plan: - Labs - Tylenol - Zofran - US 07:00: Sign out to Dr. Jean pending US results. Scribe Attestation Documented by Anabelle Ozuna acting as a scribe for Eduard Dumont MD. Provider Attestation All medical record entries made by the Scribe were at my direction and personally dictated by me. I have reviewed the chart and agree that the record accurately reflects my personal performance of the history, physical exam, medical decision making, and the department course for this patient. I have also personally directed, reviewed, and agree with the discharge instructions and disposition. Disposition - Clinical Impression Clinical Impression: Nausea & vomiting, Back pain affecting - Patient ED Disposition Is Patient to be Admitted: Transfer of Care - Disposition Referrals: [facility] [Outside] Disposition: Transfer of Care Disposition Time: 07:00 Condition: FAIR Instructions: Round Ligament Pain Forms: Edgar (Greenlandic)
[2017-06-06 05:24] LABS: BASO # 0.1 K/uL (0.0-0.2); BASO % 0.6 % (0.0-2.0); EOS # 0.3 K/uL (0.0-0.7); EOS % 1.8 % (0.0-4.0); HEMOGLOBIN 11.4 g/dL (12.0-16.0); LYMPH # 2.9 K/uL (1.0-4.3); LYMPH % 19.5 % (20.0-40.0); MEAN CORPUSCULAR HEMOGLOBIN 31.1 pg (27.0-31.0); MEAN CORPUSCULAR HGB CONC 32.7 g/dL (33.0-37.0); MEAN PLATELET VOLUME 9.3 fl (7.2-11.7); MONO # 0.8 K/uL (0.0-0.8); MONO % 5.3 % (0.0-10.0); NEUT # 10.8 K/uL (1.8-7.0); NEUT % 72.8 % (50.0-75.0); NRBC % 0.1 % (0.0-0.0); RBC 3.67 Mil/uL (3.80-5.20); RED CELL DISTRIBUTION WIDTH 13.2 % (11.5-14.5); WHITE BLOOD COUNT 14.9 K/uL (4.8-10.8)
[2017-06-06 06:09] LABS: ALB/GLOB RATIO 1.1 (1.0-2.1); ALBUMIN 4.2 g/dL (3.5-5.0); ALT/SGPT 42 U/L (9-52); AST/SGOT 45 U/L (14-36); BLOOD UREA NITROGEN 9 mg/dl (7-17); CALCIUM 9.2 mg/dL (8.4-10.2); GFR AFRICAN-AMERICAN > 60; GFR NON-AFRICAN AMERICAN > 60
--- NOTE | 2017-06-06 07:20 | ED PDOC ---
- Laboratory Results Result Diagrams: 06/06/17 05:21 06/06/17 05:21 - ECG O2 Sat by Pulse Oximetry: 100 (RA) Pulse Ox Interpretation: Normal Medical Decision Making Medical Decision Making: Time: --07:00 Reassess --Patient signed out to the provider by Dr. Dumont pending ob transvaginal ultrasound. Scribe Attestation: Documented by Paco Camejo acting as a scribe for Abad Jean MD. Provider Attestation: All medical record entries made by the Scribe were at my direction and personally dictated by me. I have reviewed the chart and agree that the record accurately reflects my personal performance of the history, physical exam, medical decision making, and the department course for this patient. I have also personally directed, reviewed, and agree with the discharge instructions and disposition. Disposition - Clinical Impression Clinical Impression: Round ligament pain - POA Present On Arrival: None - Disposition Referrals: [facility] [Outside] Disposition: Routine/Home Disposition Time: 11:09 Condition: FAIR Instructions: Round Ligament Pain Forms: [employer] [facility] ([place])
[2017-06-06 09:42] LABS: BARBITURATES, UR NEGATIVE (NEGATIVE); BENZODIAZEPINES, UR NEGATIVE (NEGATIVE); OPIATES, UR NEGATIVE (NEGATIVE); PHENCYCLIDINE, UR NEGATIVE (NEGATIVE)
[2017-06-06 11:21] VITALS: BP 125/80; PULSE 75; RESP 16
--- NOTE | 2017-06-06 13:44 | US ---
PROCEDURE: HISTORY: preg back pain COMPARISON: TECHNIQUE: FINDINGS: Evaluation demonstrates a single live intrauterine fetus with crown-rump length of 5.4 centimeters corresponding to 12 weeks gestational age. heart motion is identified. The ovaries have a normal sonographic appearance. IMPRESSION: As above.
== END 2017-06-06 11:49 | disposition home or self-care (01) ==
LOC: H.ER 03:44
DX: M54.9 Dorsalgia, unspecified (principal); O26.899 Other specified pregnancy related conditions, unspecified trimester; O21.9 Vomiting of pregnancy, unspecified
CPT/HCPCS: 76817; 80053; 80320; 80324; 80345; 80346; 80349; 80353; 80358; 80361; 81025; 83992; 84702; 85025; 96374; 99284; J2405

== ENCOUNTER 2017-06-07 03:46 | Emergency (ER) | payer MEDICAID ==
[2017-06-07 03:46] VITALS: BMI 21.2
[2017-06-07 04:01] VITALS: BP 115/71; PULSE 108; RESP 16; TEMP 98.5; O2SAT 97
--- NOTE | 2017-06-07 04:53 | ED PDOC ---
HPI: Headache Time Seen by Provider: 06/07/17 04:03 Chief Complaint (Nursing): Headache Chief Complaint (Provider): Headache History Per: Patient History/Exam Limitations: no limitations Onset/Duration Of Symptoms: Mins ([employer]) Current Symptoms Are (Timing): Still Present Additional Complaint(s): 27 year old female presents to ED with complaints of headache and nausea, has a past medical history of schizophrenia, and is currently 12 weeks . Patient was seen in ED yesterday for -related concerns and returns today status post argument with boyfriend after his discharge earlier today. Notes (+) headache and nausea after argument, and presents to ED for evaluation of symptoms. PCP: [place] Past Medical History Reviewed: Historical Data, Nursing Documentation, Vital Signs Vital Signs: Last Vital Signs Temp 98.5 F 06/07/17 03:58 Pulse 108 H 06/07/17 03:58 Resp 16 06/07/17 03:58 BP 115/71 06/07/17 03:58 Pulse Ox 97 06/07/17 03:58 - Medical History PMH: Anxiety, Back Problems, Bipolar Disorder, Depression, Gall Bladder Disease (cholecyctectomy), Kidney Stones, Chronic Kidney Disease, Schizophrenia Denies: Diabetes, Hepatitis, HIV, HTN, Seizures, Sexually Transmitted Disease - Surgical History Surgical History: Cholecystectomy, Tonsillectomy - Family History Family History: States: Unknown Family Hx - Immunization History Hx Tetanus Toxoid Vaccination: No Hx Influenza Vaccination: No Hx Pneumococcal Vaccination: No - Home Medications Home Medications: Ambulatory Orders Medication Instructions Recorded Petrolatum [Vaseline Oint] 1 pkt TOP BIDHS PRN #1 fp 06/04/17 Doxylamine/Pyridoxine HCl (B6) 1 - 2 each PO HS #16 tablet. 06/07/17 [Raul Calvert 10-10 mg Tablet] - Allergies Allergies/Adverse Reactions: Allergies Allergy/AdvReac Type Severity Reaction Status Date / Time No Known Allergies Allergy Verified 06/07/17 03:57 Review of Systems ROS Statement: Except As Marked, All Systems Reviewed And Found Negative Gastrointestinal: Positive for: Nausea Neurological: Positive for: Headache Physical Exam - Reviewed Nursing Documentation Reviewed: Yes Vital Signs Reviewed: Yes - Physical Exam Appears: Positive for: Non-toxic, No Acute Distress Skin: Positive for: Normal Color, Warm, Dry Eye Exam: Positive for: Normal appearance ENT: Positive for: Normal ENT Inspection Neck: Positive for: Normal, Painless ROM, Supple Cardiovascular/Chest: Positive for: Regular Rate, Rhythm. Negative for: Murmur Respiratory: Positive for: Normal Breath Sounds. Negative for: Respiratory Distress Gastrointestinal/Abdominal: Positive for: Soft. Negative for: Tenderness Back: Positive for: Normal Inspection Extremity: Positive for: Normal ROM. Negative for: Deformity Neurologic/Psych: Positive for: Alert, Oriented. Negative for: Motor/Sensory Deficits - ECG O2 Sat by Pulse Oximetry: 97 (RA) Pulse Ox Interpretation: Normal Medical Decision Making Medical Decision Makin Initial impression: migraine Initial plan: * Reglan 10mg IM * Acetaminophen 650mg PO * Re-eval Scribe Attestation: Documented by Kika Walls acting as a scribe for Eduard Dumont MD. DO Scribe Attestation: All medical record entries made by the Scribe were at my direction and personally dictated by me. I have reviewed the chart and agree that the record accurately reflects my personal performance of the history, physical exam, medical decision making, and the department course for this patient. I have also personally directed, reviewed, and agree with the discharge instructions and disposition. Disposition - Clinical Impression Clinical Impression: Migraine - Disposition Disposition: Routine/Home Disposition Time: 06:00 Condition: STABLE Prescriptions: Doxylamine/Pyridoxine HCl (B6) [Raul Calvert 10-10 mg Tablet] 1 - 2 each PO HS # 16 tablet. Instructions: Headache, Adult Forms: [facility] (Wolof)
== END 2017-06-07 07:23 | disposition home or self-care (01) ==
LOC: H.ER 03:46
DX: G43.909 Migraine, unspecified, not intractable, without status migrainosus (principal); F20.9 Schizophrenia, unspecified; F31.9 Bipolar disorder, unspecified; F41.9 Anxiety disorder, unspecified; O99.351 Diseases of the nervous system complicating pregnancy, first trimester; O99.341 Other mental disorders complicating pregnancy, first trimester; Z3A.12 12 weeks gestation of pregnancy
CPT/HCPCS: 96372; 99282; J2765

== ENCOUNTER 2017-06-17 01:20 | Emergency (ER) | payer MEDICAID ==
[2017-06-17 01:20] VITALS: BMI 21.2
--- NOTE | 2017-06-17 01:38 | ED PDOC ---
HPI: Headache Time Seen by Provider: 06/17/17 01:27 Chief Complaint (Provider): Headache History Per: Patient History/Exam Limitations: no limitations Onset/Duration Of Symptoms: Days (x 1) Current Symptoms Are (Timing): Still Present Additional Complaint(s): 27 year old female presents to ED with complaints of headache, has a past medical history of schizophrenia, and is currently . Patient reports vomiting all day and is currently requesting to drink juice. She has not taken any Tylenol for relief of symptoms. PMD: none provided Past Medical History Reviewed: Historical Data, Nursing Documentation, Vital Signs - Medical History PMH: Anxiety, Back Problems, Bipolar Disorder, Depression, Gall Bladder Disease (cholecyctectomy), Kidney Stones, Chronic Kidney Disease, Schizophrenia Denies: Diabetes, Hepatitis, HIV, HTN, Seizures, Sexually Transmitted Disease - Surgical History Surgical History: Cholecystectomy, Tonsillectomy - Family History Family History: States: Unknown Family Hx - Immunization History Hx Tetanus Toxoid Vaccination: No Hx Influenza Vaccination: No Hx Pneumococcal Vaccination: No - Home Medications Home Medications: Ambulatory Orders Medication Instructions Recorded Petrolatum [Vaseline Oint] 1 pkt TOP BIDHS PRN #1 fp 06/04/17 Doxylamine/Pyridoxine HCl (B6) 1 - 2 each PO HS #16 tablet. 06/07/17 [Raul Calvert 10-10 mg Tablet] - Allergies Allergies/Adverse Reactions: Allergies Allergy/AdvReac Type Severity Reaction Status Date / Time No Known Allergies Allergy Verified 06/07/17 03:57 Review of Systems ROS Statement: Except As Marked, All Systems Reviewed And Found Negative Neurological: Positive for: Headache Physical Exam - Reviewed Nursing Documentation Reviewed: Yes Vital Signs Reviewed: Yes - Physical Exam Appears: Positive for: Non-toxic, No Acute Distress Head Exam: Positive for: ATRAUMATIC, NORMOCEPHALIC Skin: Positive for: Normal Color, Warm, Dry Eye Exam: Positive for: EOMI, Normal appearance, PERRL Neck: Positive for: Normal, Painless ROM, Supple Cardiovascular/Chest: Positive for: Regular Rate, Rhythm. Negative for: Murmur Respiratory: Positive for: Normal Breath Sounds. Negative for: Wheezing, Respiratory Distress Gastrointestinal/Abdominal: Positive for: Normal Exam, Soft Back: Positive for: Normal Inspection. Negative for: L CVA Tenderness, R CVA Tenderness Extremity: Positive for: Normal ROM. Negative for: Deformity Neurologic/Psych: Positive for: Alert, Oriented. Negative for: Motor/Sensory Deficits Medical Decision Making Medical Decision Making: Time: 02:02 Impression: 27 year old female with a headache --Tylenol 975 mg PO --Reglan 10 mg IM Patient reports an improvement in symptoms. She is PO tolerant and stable to discharge. Diagnosis is headache. Scribe Attestation: Documented by Flor Tapia, acting as a scribe for Eduard Dumont MD. Provider Scribe Attestation: All medical record entries made by the Scribe were at my direction and personally dictated by me. I have reviewed the chart and agree that the record accurately reflects my personal performance of the history, physical exam, medical decision making, and the department course for this patient. I have also personally directed, reviewed, and agree with the discharge instructions and disposition. Disposition - Clinical Impression Clinical Impression: Migraine - Patient ED Disposition Is Patient to be Admitted: No - Disposition Referrals: Bunny Cramer MD [Primary Care Provider] - Disposition Time: 05:00 Condition: STABLE Instructions: Migraine Headaches in Adults Forms: [facility] (Azeri)
[2017-06-17 02:05] VITALS: RESP 16; TEMP 98.3
[2017-06-17 05:14] VITALS: BP 119/72; PULSE 91; O2SAT 99
== END 2017-06-17 05:14 | disposition home or self-care (01) ==
LOC: H.ER 01:20
DX: G43.909 Migraine, unspecified, not intractable, without status migrainosus (principal); F20.9 Schizophrenia, unspecified

== ENCOUNTER 2017-06-17 14:58 | Emergency (ER) | payer MEDICAID ==
[2017-06-17 14:58] VITALS: BMI 21.2
[2017-06-17 15:10] VITALS: BP 113/76; PULSE 94; RESP 16; TEMP 97; O2SAT 100
--- NOTE | 2017-06-17 15:46 | ED PDOC ---
Upper Extremity Pain/Injury Time Seen by Provider: 06/17/17 15:10 Chief Complaint (Nursing): Upper Extremity Problem/Injury Chief Complaint (Provider): Left arm pain History Per: Patient History/Exam Limitations: no limitations Onset/Duration Of Symptoms: Days (x1) Current Symptoms Are (Timing): Still Present Additional Complaint(s): 27 year old female presents to the emergency room complaining of left forearm pain since this morning. Patient tripped and fell this morning around 5AM, hitting her left forearm against a rock. Of note, patient is currently 15 weeks . States pain is localized to the left mid forearm. Denies any trauma to her pelvis, abdomen, back, or head. No vaginal bleeding, numbness tingling or other injury. PMD: None Past Medical History Reviewed: Historical Data, Nursing Documentation, Vital Signs Vital Signs: Last Vital Signs Temp 97.0 F L 06/17/17 15:06 Pulse 94 H 06/17/17 15:06 Resp 16 06/17/17 15:06 BP 113/76 06/17/17 15:06 Pulse Ox 100 06/17/17 15:06 - Medical History PMH: Anxiety, Back Problems, Bipolar Disorder, Depression, Gall Bladder Disease (cholecyctectomy), Kidney Stones, Chronic Kidney Disease, Schizophrenia Denies: Diabetes, Hepatitis, HIV, HTN, Seizures, Sexually Transmitted Disease - Surgical History Surgical History: Cholecystectomy, Tonsillectomy - Family History Family History: States: Unknown Family Hx - Social History Current smoker - smoking cessation education provided: Yes Alcohol: Social Drugs: Denies (stopped after ) - Immunization History Hx Tetanus Toxoid Vaccination: No Hx Influenza Vaccination: No Hx Pneumococcal Vaccination: No - Home Medications Home Medications: Ambulatory Orders Medication Instructions Recorded Petrolatum [Vaseline Oint] 1 pkt TOP BIDHS PRN #1 fp 06/04/17 Doxylamine/Pyridoxine HCl (B6) 1 - 2 each PO HS #16 tablet. 06/07/17 [Raul Calvert 10-10 mg Tablet] Acetaminophen [Tylenol 325mg tab] 2 tab PO Q4 PRN #20 tab 06/17/17 - Allergies Allergies/Adverse Reactions: Allergies Allergy/AdvReac Type Severity Reaction Status Date / Time No Known Allergies Allergy Verified 06/17/17 15:06 Review of Systems ROS Statement: Except As Marked, All Systems Reviewed And Found Negative Musculoskeletal: Positive for: Other (Left forearm pain and swelling) Neurological: Negative for: Weakness, Numbness (and tingling) Physical Exam - Reviewed Nursing Documentation Reviewed: Yes Vital Signs Reviewed: Yes - Physical Exam Appears: Positive for: Non-toxic, No Acute Distress Head Exam: Positive for: ATRAUMATIC, NORMAL INSPECTION, NORMOCEPHALIC Skin: Positive for: Normal Color, Warm, Dry Eye Exam: Positive for: Normal appearance Respiratory: Negative for: Respiratory Distress Pulses-Radial (L): 2+ Extremity: Positive for: Normal ROM (w/ full ROM actively of left wrist and elbow), Tenderness (Minimal tenderness to left mid forearm), Capillary Refill ( < 2 sec). Negative for: Deformity, Swelling Neurologic/Psych: Positive for: Alert, Oriented - ECG O2 Sat by Pulse Oximetry: 100 (RA) Pulse Ox Interpretation: Normal - Radiology X-Ray: Interpreted by Me, Viewed By Me X-Ray Interpretation: No Acute Disease Medical Decision Making Medical Decision Making: Initial Impression: Left arm injury Patient informed of risks of radiation with x-ray, despite having lead vest on during the x-ray. Patient accepts risks and states she still wants x-ray done. Written consent obtained. Time: 15:32 Initial Plan: --Tylenol 650 mg PO --x-ray of left foreram Patient informed of negative x-ray. Stable for d/c home. Given prescription for Tylenol. Scribe Attestation: Documented by Linh Rubio, acting as a scribe for Davion Eduardo PA-C Provider Scribe Attestation: All medical record entries made by the Scribe were at my direction and personally dictated by me. I have reviewed the chart and agree that the record accurately reflects my personal performance of the history, physical exam, medical decision making, and the department course for this patient. I have also personally directed, reviewed, and agree with the discharge instructions and disposition. Disposition - Clinical Impression Clinical Impression: Forearm injury - Patient ED Disposition Is Patient to be Admitted: No Counseled Patient/Family Regarding: Studies Performed, Diagnosis, Need For Followup, Rx Given - Disposition Referrals: Yariel Hough III, MD [Staff Provider] - [facility] [Outside] Disposition: Routine/Home Disposition Time: 15:59 Condition: STABLE Additional Instructions: Take Tylenol at home for pain. Prescriptions: Acetaminophen [Tylenol 325mg tab] 2 tab PO Q4 PRN #20 tab PRN Reason: Pain Instructions: Contusion (DC), How to Use a Shoulder Sling Forms: [facility] (Palestinian) Print Language: OCCITAN - POA Present On Arrival: Falls Or Trauma
--- NOTE | 2017-06-17 16:10 | RAD ---
PROCEDURE: Radiographs of the Left Forearm HISTORY: trauma COMPARISON: None available. TECHNIQUE: Frontal and lateral views obtained. FINDINGS: BONES: No fracture or destructive lesion. JOINT SPACES: Unremarkable. OTHER FINDINGS: None. IMPRESSION: Unremarkable radiographs of the left forearm.
== END 2017-06-17 16:10 | disposition home or self-care (01) ==
LOC: H.ER 14:58
DX: S59.912A Unspecified injury of left forearm, initial encounter (principal); W19.XXXA Unspecified fall, initial encounter; Y92.89 Other specified places as the place of occurrence of the external cause; F20.9 Schizophrenia, unspecified; Z33.1 Pregnant state, incidental

== ENCOUNTER 2017-06-18 03:43 | Emergency (ER) | payer MEDICAID ==
[2017-06-18 03:43] VITALS: BMI 21.2
[2017-06-18 03:54] VITALS: BP 119/82; PULSE 84; RESP 16; TEMP 98.9; O2SAT 98
--- NOTE | 2017-06-18 04:08 | ED PDOC ---
HPI: CCC, URI, Sore Throat Time Seen by Provider: 06/18/17 04:01 Chief Complaint (Nursing): ENT Problem Chief Complaint (Provider): sore throat History Per: Patient Additional Complaint(s): 27-year-old female currently 15 weeks presents with sore throat and dry cough that started yesterday. Patient denies fever or chills. Patient took Tylenol yesterday but this did not help the pain. No vomiting, patient is tolerating liquids and solids. No abd pain or vaginal bleeding. PMD: none Past Medical History Reviewed: Historical Data, Nursing Documentation, Vital Signs Vital Signs: Last Vital Signs Temp 98.9 F 06/18/17 03:51 Pulse 84 06/18/17 03:51 Resp 16 06/18/17 03:51 BP 119/82 06/18/17 03:51 Pulse Ox 98 06/18/17 03:51 - Medical History PMH: Anxiety, Back Problems, Bipolar Disorder, Depression, Chronic Kidney Disease, Schizophrenia - Surgical History Surgical History: Cholecystectomy, Tonsillectomy - Family History Family History: States: No Known Family Hx - Living Arrangements Living Arrangements: With Family - Social History Current smoker - smoking cessation education provided: Yes (1 cigarette per day) Alcohol: None Drugs: Denies - Home Medications Home Medications: Ambulatory Orders Medication Instructions Recorded Petrolatum [Vaseline Oint] 1 pkt TOP BIDHS PRN #1 fp 06/04/17 Doxylamine/Pyridoxine HCl (B6) 1 - 2 each PO HS #16 tablet. 06/07/17 [Raul Calvert 10-10 mg Tablet] Acetaminophen [Tylenol 325mg tab] 2 tab PO Q4 PRN #20 tab 06/17/17 Amoxicillin 875 mg PO BID #14 tab 06/18/17 - Allergies Allergies/Adverse Reactions: Allergies Allergy/AdvReac Type Severity Reaction Status Date / Time No Known Allergies Allergy Verified 06/17/17 15:06 Review of Systems ROS Statement: Except As Marked, All Systems Reviewed And Found Negative Constitutional: Negative for: Fever ENT: Positive for: Throat Pain Cardiovascular: Negative for: Chest Pain Respiratory: Positive for: Cough (dry) Gastrointestinal: Negative for: Nausea, Vomiting, Abdominal Pain, Diarrhea Genitourinary Female: Negative for: Vaginal Bleeding Physical Exam - Reviewed Nursing Documentation Reviewed: Yes Vital Signs Reviewed: Yes - Physical Exam Appears: Positive for: Well Skin: Negative for: Rash Eye Exam: Positive for: Normal appearance ENT: Positive for: Pharyngeal Erythema. Negative for: Nasal Congestion Cardiovascular/Chest: Positive for: Regular Rate, Rhythm Respiratory: Positive for: Normal Breath Sounds Gastrointestinal/Abdominal: Positive for: Other (gravid nontender abdomen) Neurologic/Psych: Positive for: Alert, Oriented - ECG O2 Sat by Pulse Oximetry: 98 Pulse Ox Interpretation: Normal Medical Decision Making Medical Decision Making: Impression: pharyngitis Plan: PO tylenol Throat culture Rx amoxicillin Advised clinic follow up. Disposition - Clinical Impression Clinical Impression: Pharyngitis - Patient ED Disposition Is Patient to be Admitted: No Counseled Patient/Family Regarding: Diagnosis, Need For Followup, Rx Given - Disposition Referrals: [facility] [Outside] Disposition: Routine/Home Disposition Time: 04:10 Condition: STABLE Additional Instructions: Tylenol every 4-6 hours for pain as needed. Benadryl for congestion as needed. Take prescription meds as directed. Follow-up with clinic. Prescriptions: Amoxicillin 875 mg PO BID #14 tab Instructions: Sore Throat in Adults
== END 2017-06-18 04:35 | disposition home or self-care (01) ==
LOC: H.ER 03:43
DX: J02.9 Acute pharyngitis, unspecified (principal); Z3A.15 15 weeks gestation of pregnancy; O99.332 Smoking (tobacco) complicating pregnancy, second trimester; F20.9 Schizophrenia, unspecified

== ENCOUNTER 2017-06-22 05:42 | Emergency (ER) | payer MEDICAID ==
[2017-06-22 05:42] VITALS: BMI 21.2
[2017-06-22 05:56] VITALS: RESP 18; TEMP 99
--- NOTE | 2017-06-22 06:10 | ED PDOC ---
HPI: Abdomen Time Seen by Provider: 06/22/17 05:57 Chief Complaint (Nursing): GI Problem Chief Complaint (Provider): Vomiting in History Per: Patient History/Exam Limitations: no limitations Onset/Duration Of Symptoms: Hrs (1 hour ago) Current Symptoms Are (Timing): Still Present Additional Complaint(s): 27 yo female, who is roughly 17 weeks , presents with the boyfiend today complaining of resolved nausea and vomiting during , but no vomiting currently. Patient states that she often vomited during , and is now requesting a prescription for Zofran to combat this. She denies any abdominal pain, urinary symptoms, VB, VD. Past Medical History Reviewed: Historical Data Vital Signs: Last Vital Signs Temp 99 F 06/22/17 05:53 Pulse 78 06/22/17 05:53 Resp 18 06/22/17 05:53 BP 116/83 06/22/17 05:53 Pulse Ox 98 06/22/17 06:13 - Medical History PMH: Anxiety, Back Problems, Bipolar Disorder, Depression, Gall Bladder Disease (cholecyctectomy), Kidney Stones, Chronic Kidney Disease, Schizophrenia Denies: Diabetes, Hepatitis, HIV, HTN, Seizures, Sexually Transmitted Disease - Surgical History Surgical History: Cholecystectomy, Tonsillectomy - Family History Family History: States: Unknown Family Hx - Living Arrangements Living Arrangements: With Friends/Others (boyfriend) - Social History Current smoker - smoking cessation education provided: No Ex-Smoker (has not smoked in the last 12 months): No Alcohol: None Drugs: Denies - Immunization History Hx Tetanus Toxoid Vaccination: No Hx Influenza Vaccination: No Hx Pneumococcal Vaccination: No - Home Medications Home Medications: Ambulatory Orders Medication Instructions Recorded Petrolatum [Vaseline Oint] 1 pkt TOP BIDHS PRN #1 fp 06/04/17 Doxylamine/Pyridoxine HCl (B6) 1 - 2 each PO HS #16 tablet. 06/07/17 [Raul Calvert 10-10 mg Tablet] Acetaminophen [Tylenol 325mg tab] 2 tab PO Q4 PRN #20 tab 06/17/17 Amoxicillin 875 mg PO BID #14 tab 06/18/17 Ondansetron ODT [Zofran ODT] 4 mg PO Q8 PRN #12 odt 06/22/17 - Allergies Allergies/Adverse Reactions: Allergies Allergy/AdvReac Type Severity Reaction Status Date / Time No Known Allergies Allergy Verified 06/17/17 15:06 Review of Systems ROS Statement: Except As Marked, All Systems Reviewed And Found Negative Gastrointestinal: Positive for: Nausea, Vomiting (resolved). Negative for: Abdominal Pain Genitourinary Female: Negative for: Dysuria, Frequency, Incontinence, Hematuria , Vaginal Bleeding Physical Exam - Reviewed Nursing Documentation Reviewed: Yes Vital Signs Reviewed: Yes - Physical Exam Appears: Positive for: Well, Non-toxic, No Acute Distress Head Exam: Positive for: ATRAUMATIC, NORMAL INSPECTION, NORMOCEPHALIC Skin: Positive for: Normal Color, Warm, DRY Eye Exam: Positive for: EOMI, Normal appearance, PERRL ENT: Positive for: Normal ENT Inspection Neck: Positive for: Normal, Painless ROM Cardiovascular/Chest: Positive for: Regular Rate, Rhythm. Negative for: Murmur Respiratory: Positive for: Normal Breath Sounds. Negative for: Respiratory Distress Gastrointestinal/Abdominal: Positive for: Normal Exam, Soft. Negative for: Tenderness Back: Positive for: Normal Inspection Extremity: Positive for: Normal ROM. Negative for: Pedal Edema, Deformity Neurologic/Psych: Positive for: Alert, Oriented. Negative for: Motor/Sensory Deficits - ECG O2 Sat by Pulse Oximetry: 98 (RA) Pulse Ox Interpretation: Normal Medical Decision Making Medical Decision Making: Time: --05:57 Impression: --medication refill Plan: --Discharge with prescription Scribe Attestation: Documented by Paco Camejo acting as a scribe for Alexandro Hanson MD. Provider Attestation: All medical record entries made by the Scribe were at my direction and personally dictated by me. I have reviewed the chart and agree that the record accurately reflects my personal performance of the history, physical exam, medical decision making, and the department course for this patient. I have also personally directed, reviewed, and agree with the discharge instructions and disposition. Disposition - Clinical Impression Clinical Impression: Vomiting affecting , Medication refill - Disposition [facility]] Disposition: Routine/Home Disposition Time: 06:00 Condition: STABLE Prescriptions: Ondansetron ODT [Zofran ODT] 4 mg PO Q8 PRN #12 odt PRN Reason: Nausea/Vomiting Instructions: Nausea and Vomiting of Forms: [employer] (Sinhala)
[2017-06-22 06:53] VITALS: BP 118/81; PULSE 75; O2SAT 100
== END 2017-06-22 06:52 | disposition home or self-care (01) ==
LOC: H.ER 05:42
DX: O21.9 Vomiting of pregnancy, unspecified (principal); Z76.0 Encounter for issue of repeat prescription; Z87.442 Personal history of urinary calculi; Z87.891 Personal history of nicotine dependence; N18.9 Chronic kidney disease, unspecified; Z86.59 Personal history of other mental and behavioral disorders; Z3A.17 17 weeks gestation of pregnancy

== ENCOUNTER 2017-06-22 22:20 | Emergency (ER) | payer MEDICAID ==
[2017-06-22 22:20] VITALS: BMI 21.2
[2017-06-22 22:42] VITALS: BP 121/81; PULSE 85; RESP 18; TEMP 98.5; O2SAT 98
[2017-06-22] MEDS ORDERED: Albuterol 0.042% Inhal Sol (1.25 mg/3 mL) UD INH STA (22:47)
[2017-06-22] MEDS ORDERED: Albuterol 0.083% Inhal Sol (2.5 mg/3 mL) UD ONE (22:50)
--- NOTE | 2017-06-22 22:50 | ED PDOC ---
HPI: General Adult Time Seen by Provider: 06/22/17 22:41 Chief Complaint (Nursing): Cough, Cold, Congestion Chief Complaint (Provider): cough History Per: Patient Additional Complaint(s): 27 year old female currently 20 weeks presents to emergency department complaining of persistent cough ongoing for 3 weeks. Patient was seen last week in ER and was given amoxicillin. Patient also completed course of Tamiflu last week. She states cough is not any better. Patient is requesting breathing treatment. She denies abdominal pain or vaginal bleeding. No fever or chills. No chest pain, shortness of breath or dyspnea on exertion. Patient is currently non-domiciled and has had multiple visits in recent past at this ED. PMD: none Past Medical History Reviewed: Historical Data, Nursing Documentation, Vital Signs Vital Signs: Last Vital Signs Temp 98.5 F 06/22/17 22:38 Pulse 85 06/22/17 22:38 Resp 18 06/22/17 22:38 BP 121/81 06/22/17 22:38 Pulse Ox 98 06/22/17 22:38 - Medical History PMH: Anxiety, Back Problems, Bipolar Disorder, Depression, Kidney Stones, Chronic Kidney Disease, Schizophrenia - Surgical History Surgical History: Cholecystectomy, Tonsillectomy - Family History Family History: States: No Known Family Hx - Living Arrangements Living Arrangements: Other (non domiciled) - Social History Current smoker - smoking cessation education provided: Yes (1-2 cigarettes per day) Alcohol: None Drugs: Denies - Home Medications Home Medications: Ambulatory Orders Medication Instructions Recorded Petrolatum [Vaseline Oint] 1 pkt TOP BIDHS PRN #1 fp 06/04/17 Doxylamine/Pyridoxine HCl (B6) 1 - 2 each PO HS #16 tablet. 06/07/17 [Raul Calvert 10-10 mg Tablet] Acetaminophen [Tylenol 325mg tab] 2 tab PO Q4 PRN #20 tab 06/17/17 Amoxicillin 875 mg PO BID #14 tab 06/18/17 Albuterol HFA [Ventolin HFA 90 1 puff IH ASDIR #1 unit 06/22/17 mcg/actuation (8 g)] Ondansetron ODT [Zofran ODT] 4 mg PO Q8 PRN #12 odt 06/22/17 - Allergies Allergies/Adverse Reactions: Allergies Allergy/AdvReac Type Severity Reaction Status Date / Time No Known Allergies Allergy Verified 06/17/17 15:06 Review of Systems ROS Statement: Except As Marked, All Systems Reviewed And Found Negative Constitutional: Negative for: Fever, Chills Cardiovascular: Negative for: Chest Pain Respiratory: Positive for: Cough (for 3 weeks). Negative for: Shortness of Breath, SOB with Exertion Gastrointestinal: Negative for: Nausea, Vomiting, Abdominal Pain Genitourinary Female: Negative for: Vaginal Discharge, Vaginal Bleeding Neurological: Negative for: Headache Physical Exam - Reviewed Nursing Documentation Reviewed: Yes Vital Signs Reviewed: Yes - Physical Exam Appears: Positive for: Well, Non-toxic, No Acute Distress Skin: Negative for: Rash Eye Exam: Positive for: Normal appearance Cardiovascular/Chest: Positive for: Regular Rate, Rhythm Respiratory: Positive for: Normal Breath Sounds. Negative for: Wheezing, Respiratory Distress Gastrointestinal/Abdominal: Positive for: Other (gravid non-tender abdomen) Extremity: Positive for: Normal ROM Neurologic/Psych: Positive for: Alert, Oriented - ECG O2 Sat by Pulse Oximetry: 98 Pulse Ox Interpretation: Normal Nebulizer Treatments/Peak Flow - Duonebs Number of Bronchodilator Doses given?: 1 - Pre/Post Peak Flow Pre Treatment Peak Flow: 200 Post treatment Peak Flow: 250 - Steroid Treatment Steroid: Not Clinically Indicated - Clinical Response Clinical Response: Improved Medical Decision Making Medical Decision Makin27 year old female with persistent cough Plan: Albuterol x 1 via neb Rx ventolin given. Patient was counseled regarding smoking cessation. She was referred to clinic for follow up. Disposition - Clinical Impression Clinical Impression: Cough - Patient ED Disposition Is Patient to be Admitted: No Counseled Patient/Family Regarding: Diagnosis, Need For Followup, Rx Given - Disposition Referrals: [facility] [Outside] Disposition: Routine/Home Disposition Time: 22:47 Condition: STABLE Additional Instructions: Use inhaler as directed. Follow up with clinic. Prescriptions: Albuterol HFA [Ventolin HFA 90 mcg/actuation (8 g)] 1 puff IH ASDIR #1 unit Instructions: Cough in Adults
== END 2017-06-22 23:33 | disposition home or self-care (01) ==
LOC: H.ER 22:20
DX: R05 Cough (principal); Z3A.20 20 weeks gestation of pregnancy; Z87.442 Personal history of urinary calculi; O99.342 Other mental disorders complicating pregnancy, second trimester; Z86.59 Personal history of other mental and behavioral disorders; F17.210 Nicotine dependence, cigarettes, uncomplicated; N18.9 Chronic kidney disease, unspecified; O99.332 Smoking (tobacco) complicating pregnancy, second trimester

== ENCOUNTER 2017-07-10 15:34 | Emergency (ER) | payer MEDICAID ==
[2017-07-10 15:35] VITALS: BMI 21.2
[2017-07-10 15:38] VITALS: BP 91/64; PULSE 76; RESP 18; TEMP 98.4; O2SAT 99
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
--- NOTE | 2017-07-10 16:53 | RAD ---
PROCEDURE: Right Knee Radiographs. HISTORY: pain COMPARISON: No prior study available for comparison however correlation made with radiographs of the left knee dated 02/24/2012 FINDINGS: BONES: Normal. No fracture. JOINTS: Normal. No osteoarthritis. JOINT EFFUSION: Suspect trace suprapatellar joint effusion OTHER FINDINGS: None. IMPRESSION: No evidence of acute displaced fracture nor dislocation. Suspect trace suprapatellar joint effusion.
== END 2017-07-10 17:33 | disposition home or self-care (01) ==
LOC: H.ER 15:34
DX: M25.561 Pain in right knee (principal); W19.XXXA Unspecified fall, initial encounter; Z33.1 Pregnant state, incidental; Z86.59 Personal history of other mental and behavioral disorders; N18.9 Chronic kidney disease, unspecified; Z87.442 Personal history of urinary calculi

== ENCOUNTER 2017-07-27 13:26 | Emergency (ER) | payer MEDICAID, OTHER ==
[2017-07-27 13:48] VITALS: BP 120/73; PULSE 87; RESP 16; TEMP 98.2; O2SAT 99
[2017-07-27 15:01] LABS: SQUAMOUS EPITHIAL 15 /hpf (0-5); URINE AMORPHOUS SEDIMENT RARE /ul (<OCC); URINE BACTERIA OCC (<OCC); URINE BILIRUBIN NEGATIVE (NEGATIVE); URINE BLOOD NEGATIVE (NEGATIVE); URINE CLARITY CLOUDY (Clear); URINE COLOR YELLOW (YELLOW); URINE GLUCOSE (UA) NEG (Normal); URINE LEUKOCYTE ESTERASE LARGE Leu/uL (Negative); URINE PROTEIN NEGATIVE (NEGATIVE); URINE UROBILINOGEN 0.2-1.0 mg/dL (0.2-1.0)
--- NOTE | 2017-07-27 15:24 | ED PDOC ---
HPI: Psych/Substance Abuse Time Seen by Provider: 07/27/17 13:43 Chief Complaint (Nursing): Psychiatric Evaluation Chief Complaint (Provider): Left low back pain, 20 minutes History Per: Patient History/Exam Limitations: no limitations Onset/Duration Of Symptoms: Days Current Symptoms Are (Timing): Still Present Suicide/Self Injury Attempted (Context): None Additional Complaint(s): 27 yo at 19 weeks gestation presents with left lower back pain for 20 minutes. PT denies fever/chills or dysuria. Pt states she feels the baby moving and he was moving on her arrival to the room. Pt did not take anything for pain. Past Medical History Reviewed: Historical Data, Nursing Documentation, Vital Signs Vital Signs: Last Vital Signs Temp 98.2 F 07/27/17 13:36 Pulse 87 07/27/17 13:36 Resp 16 07/27/17 13:36 BP 120/73 07/27/17 13:36 Pulse Ox 99 07/27/17 13:36 - Medical History PMH: Anxiety, Back Problems, Bipolar Disorder, Depression, Gall Bladder Disease (cholecyctectomy), Kidney Stones, Chronic Kidney Disease, Schizophrenia Denies: Diabetes, Hepatitis, HIV, HTN, Seizures, Sexually Transmitted Disease - Surgical History Surgical History: Cholecystectomy, Tonsillectomy - Family History Family History: States: Unknown Family Hx - Immunization History Hx Tetanus Toxoid Vaccination: No Hx Influenza Vaccination: No Hx Pneumococcal Vaccination: No - Home Medications Home Medications: Ambulatory Orders Medication Instructions Recorded Petrolatum [Vaseline Oint] 1 pkt TOP BIDHS PRN #1 fp 06/04/17 Doxylamine/Pyridoxine HCl (B6) 1 - 2 each PO HS #16 tablet. 06/07/17 [Raul Calvert 10-10 mg Tablet] Acetaminophen [Tylenol 325mg tab] 2 tab PO Q4 PRN #20 tab 06/17/17 Amoxicillin 875 mg PO BID #14 tab 06/18/17 Albuterol HFA [Ventolin HFA 90 1 puff IH ASDIR #1 unit 06/22/17 mcg/actuation (8 g)] Ondansetron ODT [Zofran ODT] 4 mg PO Q8 PRN #12 odt 06/22/17 Nitrofurantoin Macrocrystals 100 mg PO BID #10 cap 07/27/17 [Macrobid] - Allergies Allergies/Adverse Reactions: Allergies Allergy/AdvReac Type Severity Reaction Status Date / Time No Known Allergies Allergy Verified 06/17/17 15:06 Review of Systems ROS Statement: Except As Marked, All Systems Reviewed And Found Negative Constitutional: Negative for: Fever, Chills Genitourinary Female: Negative for: Dysuria, Vaginal Bleeding, Pelvic Pain Physical Exam - Reviewed Nursing Documentation Reviewed: Yes Vital Signs Reviewed: Yes - Physical Exam Appears: Positive for: Well, Non-toxic, No Acute Distress Head Exam: Positive for: ATRAUMATIC, NORMAL INSPECTION, NORMOCEPHALIC Skin: Positive for: Normal Color, Warm, DRY Eye Exam: Positive for: Normal appearance ENT: Positive for: Normal ENT Inspection Neck: Positive for: Normal, Painless ROM Cardiovascular/Chest: Positive for: Regular Rate, Rhythm Respiratory: Positive for: CNT, Normal Breath Sounds Gastrointestinal/Abdominal: Positive for: Normal Exam, Soft Back: Positive for: Normal Inspection, Other (Tenderness, left lower back with palpation). Negative for: Vertebral Tenderness Extremity: Positive for: Normal ROM Neurologic/Psych: Positive for: Alert, Oriented - ECG O2 Sat by Pulse Oximetry: 99 Medical Decision Making Medical Decision Making: (+) UTI PT reports feeling much better on re-evaluation and requesting food. Disposition - Clinical Impression Clinical Impression: UTI (urinary tract infection), Lower back pain - Patient ED Disposition Is Patient to be Admitted: No Counseled Patient/Family Regarding: Diagnosis, Need For Followup, Rx Given - Disposition [facility] Disposition: Routine/Home Disposition Time: 15:25 Condition: GOOD Additional Instructions: Tylenol for pain. Prescriptions: Nitrofurantoin Macrocrystals [Macrobid] 100 mg PO BID #10 cap Instructions: How to Adapt to Physical Changes During
[2017-07-27 15:28] VITALS: BMI 27.4
== END 2017-07-27 16:20 | disposition home or self-care (01) ==
LOC: H.ER 13:26
DX: O23.42 Unspecified infection of urinary tract in pregnancy, second trimester (principal); O26.92 Pregnancy related conditions, unspecified, second trimester; M54.5 Low back pain

== ENCOUNTER 2017-08-01 23:42 | Emergency (ER) | payer OTHER ==
[2017-08-02 01:12] VITALS: BMI 23.1
[2017-08-02 01:30] LABS: SQUAMOUS EPITHIAL 11 /hpf (0-5); URINE BACTERIA OCC (<OCC); URINE BILIRUBIN NEGATIVE (NEGATIVE); URINE BLOOD SMALL (NEGATIVE); URINE CALCIUM OXALATE CRYSTALS OCC /hpf (<OCC); URINE CLARITY CLOUDY (Clear); URINE COLOR YELLOW (YELLOW); URINE GLUCOSE (UA) NEG (Normal); URINE LEUKOCYTE ESTERASE LARGE Leu/uL (Negative); URINE PROTEIN 30 mg/dL (NEGATIVE); URINE UROBILINOGEN 0.2-1.0 mg/dL (0.2-1.0)
[2017-08-02 02:04] VITALS: TEMP 98.4
--- NOTE | 2017-08-02 02:31 | ED PDOC ---
HPI: Chest Pain Chief Complaint (Provider): chest pain History Per: Patient History/Exam Limitations: no limitations Onset/Duration Of Symptoms: Hrs Current Symptoms Are (Timing): Still Present Context: Other (positional) Pain Scale Rating Of: 5 Quality: "Pain" Associated Symptoms: denies: Nausea, Dyspnea, Diaphoresis, Syncope <Lupe Ortez - Last Filed: 08/02/17 03:13> <Eduard Dumont - Last Filed: 08/03/17 05:41> Time Seen by Provider: 08/02/17 02:06 Chief Complaint (Nursing): Chest Pain Additional Complaint(s): 27 yo F with psychiatric hx, , around 20 weeks gestational age, sent to main ED from OB ED for evaluation of chest pain. Pt came into [facility] with c/o abd pain- was cleared obstetrically. Urine for urinalysis was collected in [facility]. After being cleared obstetrically, pt complained of a spot on her right chest that she states is painful. Pain does not anywhere, including neither arm nor jaw. Pt denies difficulty breathing. States she started experiencing the pain after her neck was in flexed position due to elevation of head of bed in [facility]. States once she was able to stretch her neck more in main ED, pain subsided. Of note, pt was seen in this ED facility on 07/27; was dx with UTI- prescribed macrobid BID for 5 days; was taking it once a day and stopped after 5 days. PMH: bipolar? PSurg hx: cholecystectomy Allergies: nkda Fam hx: noncontributory Meds: benadryl? (Lupe Ortez) Supervising Attending Note - Supervising Attending Note The Documented history was done by the: Physician Tin Container Straightener The documented physical exam was done by the: Physician Tin Container Straightener - Attestation: I have personally seen and examined this patient.: Yes I have fully participated in the care of the patient.: Yes I have reviewed all pertinent clinical information: Yes <Eduard Dumont - Last Filed: 08/03/17 05:41> Past Medical History - Medical History PMH: Anxiety, Back Problems, Bipolar Disorder, Depression, Gall Bladder Disease (cholecyctectomy), Chronic Kidney Disease, Schizophrenia Denies: Diabetes, Hepatitis, HIV, HTN, Seizures, Sexually Transmitted Disease - Surgical History Surgical History: Cholecystectomy, Tonsillectomy - Family History Family History: States: Unknown Family Hx - Immunization History Hx Tetanus Toxoid Vaccination: No Hx Influenza Vaccination: No Hx Pneumococcal Vaccination: No <Lupe Ortez - Last Filed: 08/02/17 03:13> <Eduard Dumont - Last Filed: 08/03/17 05:41> Vital Signs: Last Vital Signs Temp 98.4 F 08/02/17 02:01 Pulse 122 H 08/02/17 08:17 Resp 20 08/02/17 03:15 BP 124/89 08/02/17 08:17 Pulse Ox 100 08/02/17 03:15 - Home Medications Home Medications: Ambulatory Orders Medication Instructions Recorded Petrolatum [Vaseline Oint] 1 pkt TOP BIDHS PRN #1 fp 06/04/17 Doxylamine/Pyridoxine HCl (B6) 1 - 2 each PO HS #16 tablet. 06/07/17 [Raul Calvert 10-10 mg Tablet] Acetaminophen [Tylenol 325mg tab] 2 tab PO Q4 PRN #20 tab 06/17/17 Amoxicillin 875 mg PO BID #14 tab 06/18/17 Albuterol HFA [Ventolin HFA 90 1 puff IH ASDIR #1 unit 06/22/17 mcg/actuation (8 g)] Ondansetron ODT [Zofran ODT] 4 mg PO Q8 PRN #12 odt 06/22/17 Nitrofurantoin Macrocrystals 100 mg PO BID #10 cap 07/27/17 [Macrobid] Cephalexin [Keflex] 500 mg PO Q6 #40 capsule 08/02/17 - Allergies Allergies/Adverse Reactions: Allergies Allergy/AdvReac Type Severity Reaction Status Date / Time No Known Allergies Allergy Verified 06/17/17 15:06 Review of Systems ROS Statement: Except As Marked, All Systems Reviewed And Found Negative Constitutional: Negative for: Fever, Chills Cardiovascular: Positive for: Chest Pain. Negative for: Palpitations Respiratory: Negative for: Cough, Shortness of Breath Gastrointestinal: Negative for: Nausea, Vomiting Genitourinary Female: Positive for: Dysuria (after intercourse) Neurological: Negative for: Weakness Psych: Positive for: Anxiety <Lupe Ortez - Last Filed: 08/02/17 03:13> Physical Exam - Reviewed Vital Signs Reviewed: Yes - Physical Exam Appears: Positive for: Non-toxic, No Acute Distress Head Exam: Positive for: ATRAUMATIC Skin: Positive for: Warm, Dry Eye Exam: Negative for: Scleral icterus Cardiovascular/Chest: Positive for: Regular Rate, Rhythm Respiratory: Positive for: Normal Breath Sounds. Negative for: Respiratory Distress Gastrointestinal/Abdominal: Positive for: Normal Exam, Soft Extremity: Negative for: Deformity <NeelimaLupe - Last Filed: 08/02/17 03:13> - ECG O2 Sat by Pulse Oximetry: 96 <NeelimaLupe - Last Filed: 08/02/17 03:13> Medical Decision Making <NeelimaLupe - Last Filed: 08/02/17 03:13> <Eduard Dumont - Last Filed: 08/03/17 05:41> Medical Decision Making: UA done in [facility] + UTI EKG-NSR, 69 BPM 500 mg Keflex PO Pt observed sitting comfortably in bed, in good spirits, talking to her significant other, in no acute distress. Pt stable for discharge; given script for keflex 500 mg, every 6 hrs, for 10 days. Discussed w/ Dr. Dumont. Explained to patient and significant other how to take medication. Advised followup with PCP within 1 week. (Lupe Ortez) Disposition - Patient ED Disposition Is Patient to be Admitted: No - Disposition Disposition: Routine/Home Disposition Time: 03:10 <NeelimaLupe - Last Filed: 08/02/17 03:13> <Eduard Dumont - Last Filed: 08/03/17 05:41> - Clinical Impression Clinical Impression: Anxiety, UTI (urinary tract infection) - Disposition Referrals: [facility] [Provider Group] Condition: STABLE Additional Instructions: Please take antibiotics as prescribed Follow up with PCP within 1 week. Return to ED with new or worsening symptoms. Prescriptions: Cephalexin [Keflex] 500 mg PO Q6 #40 capsule Instructions: Urinary Tract Infections in Adults, Anxiety, Adult (DC) Forms: [employer] (Romanian)
[2017-08-02 03:44] VITALS: RESP 20; O2SAT 100
[2017-08-02 08:18] VITALS: BP 124/89; PULSE 122
--- NOTE | 2017-08-02 11:38 | CARD ---
APPROVED REPORT EKG Measurement Heart [id number] <Conclusion> Normal sinus rhythm with sinus arrhythmia Normal ECG
== END 2017-08-02 03:41 | disposition home or self-care (01) ==
LOC: H.EROB2 23:42 → H.ER 23:42
DX: F41.9 Anxiety disorder, unspecified (principal); O23.40 Unspecified infection of urinary tract in pregnancy, unspecified trimester; F20.9 Schizophrenia, unspecified; F31.9 Bipolar disorder, unspecified; Z90.49 Acquired absence of other specified parts of digestive tract

== ENCOUNTER 2017-08-02 03:55 | Emergency (ER) | payer OTHER ==
[2017-08-02 04:01] VITALS: BMI 23.1
[2017-08-02 04:19] VITALS: BP 103/71; PULSE 87; RESP 16; TEMP 98.8; O2SAT 100
--- NOTE | 2017-08-02 04:35 | ED PDOC ---
HPI: Psych/Substance Abuse Chief Complaint (Provider): psych eval History Per: Patient History/Exam Limitations: no limitations Additional Complaint(s): 27 yo F, seen earlier today in [facility] for abdominal pain (cleared obstetrically), then in main ED due to complaint of chest discomfort/pain; evaluated for complaints, diagnosed with UTI and given prescription for antibiotics, and discharged. Pt was overheard speaking to her significant other during prior admission about "signing in/checking myself in." Upon discharge from main ED; pt and her SO both re-entered ED and proceeded to sign up for psych evaluation. Pt was seen by printed circuit board reworker and cleared; adjustment disorder. <Lupe Ortez - Last Filed: 08/02/17 05:09> <Eduard Dumont - Last Filed: 08/03/17 05:43> Time Seen by Provider: 08/02/17 04:20 Chief Complaint (Nursing): Psychiatric Evaluation Supervising Attending Note - Supervising Attending Note The Documented history was done by the: Physician Program Manufacturing Leader The documented physical exam was done by the: Physician Program Manufacturing Leader - Attestation: I have personally seen and examined this patient.: Yes I have fully participated in the care of the patient.: Yes I have reviewed all pertinent clinical information, including history, physical exam and plan: Yes <Eduard Dumont - Last Filed: 08/03/17 05:43> Past Medical History Vital Signs: Last Vital Signs Temp 98.8 F 08/02/17 04:15 Pulse 87 08/02/17 04:15 Resp 16 08/02/17 04:15 BP 103/71 08/02/17 04:15 Pulse Ox 100 08/02/17 04:15 - Medical History PMH: Anxiety, Back Problems, Bipolar Disorder, Depression, Gall Bladder Disease (cholecyctectomy), Kidney Stones, Chronic Kidney Disease, Schizophrenia Denies: Diabetes, Hepatitis, HIV, HTN, Seizures, Sexually Transmitted Disease - Surgical History Surgical History: Cholecystectomy, Tonsillectomy - Family History Family History: States: Unknown Family Hx - Immunization History Hx Tetanus Toxoid Vaccination: No Hx Influenza Vaccination: No Hx Pneumococcal Vaccination: No <Lupe Ortez - Last Filed: 08/02/17 05:09> Vital Signs: Last Vital Signs Temp 98.8 F 08/02/17 04:15 Pulse 87 08/02/17 04:15 Resp 16 08/02/17 04:15 BP 103/71 08/02/17 04:15 Pulse Ox 100 08/02/17 05:09 <Eduard Dumont - Last Filed: 08/03/17 05:43> - Home Medications Home Medications: Ambulatory Orders Medication Instructions Recorded Petrolatum [Vaseline Oint] 1 pkt TOP BIDHS PRN #1 fp 06/04/17 Doxylamine/Pyridoxine HCl (B6) 1 - 2 each PO HS #16 tablet. 06/07/17 [Raul Calvert 10-10 mg Tablet] Acetaminophen [Tylenol 325mg tab] 2 tab PO Q4 PRN #20 tab 06/17/17 Amoxicillin 875 mg PO BID #14 tab 06/18/17 Albuterol HFA [Ventolin HFA 90 1 puff IH ASDIR #1 unit 06/22/17 mcg/actuation (8 g)] Ondansetron ODT [Zofran ODT] 4 mg PO Q8 PRN #12 odt 06/22/17 Nitrofurantoin Macrocrystals 100 mg PO BID #10 cap 07/27/17 [Macrobid] Cephalexin [Keflex] 500 mg PO Q6 #40 capsule 08/02/17 - Allergies Allergies/Adverse Reactions: Allergies Allergy/AdvReac Type Severity Reaction Status Date / Time No Known Allergies Allergy Verified 06/17/17 15:06 Review of Systems Genitourinary Female: Positive for: Dysuria <Lupe Ortez - Last Filed: 08/02/17 05:09> Physical Exam - Physical Exam Head Exam: Positive for: ATRAUMATIC Skin: Positive for: Normal Color, Warm Eye Exam: Positive for: Normal appearance Respiratory: Negative for: Respiratory Distress Back: Positive for: Normal Inspection Extremity: Positive for: Normal ROM. Negative for: Deformity <Lupe Ortez - Last Filed: 08/02/17 05:09> - ECG O2 Sat by Pulse Oximetry: 100 <Lupe Ortez - Last Filed: 08/02/17 05:09> Medical Decision Making Medical Decision Making: Pt evaluated by printed circuit board reworker- adjustment disorder, does not meet criteria for hospitalization. <Lupe Ortez - Last Filed: 08/02/17 05:09> Disposition - Patient ED Disposition Is Patient to be Admitted: No - Disposition Disposition: Routine/Home Disposition Time: 04:42 <Lupe Ortez - Last Filed: 08/02/17 05:09> <Eduard Dumont - Last Filed: 08/03/17 05:43> - Clinical Impression Clinical Impression: Adjustment disorder, Malingerer - Disposition Condition: STABLE Instructions: Adjustment Disorder Forms: [facility] (Persian)
== END 2017-08-02 04:40 | disposition home or self-care (01) ==
LOC: H.ER 03:55
DX: F43.22 Adjustment disorder with anxiety (principal); Z76.5 Malingerer [conscious simulation]; Z87.442 Personal history of urinary calculi; Z86.59 Personal history of other mental and behavioral disorders; N18.9 Chronic kidney disease, unspecified

== ENCOUNTER 2017-08-03 02:30 | Emergency (ER) | payer OTHER ==
[2017-08-02 04:01] VITALS: BMI 23.1
--- NOTE | 2017-08-03 07:54 | OBDCSUM ---
Datetime: 08/03/2017 03:30 Discharged to, Provider: Home Follow up at, Provider: [facility] Disch Instr Activity: Normal activity Disch Instr Diet: Regular Discharge Time: 08/03/2017 03:35 Follow up in weeks, Provider: [facility] Wednesday08/03/17 Disch Referrals: None
--- NOTE | 2017-08-03 07:54 | OBHP ---
Datetime: 08/03/2017 03:28 IP Adm Impression: , intrauterine IP Admit Plan: Discharge home Admit Comment, IP Provider: 27 y/o F, , IUP@20.3 weeks GA comes to the [facility] second time in last 2 days for c/o same symptoms. Pateint has been c/o dysuria and suprapubic pain. Patient denies any fe lee ann, chills, vomiting, headache, blurred vision, chest pain, SOB or weakness. Patient admits having intercourse today and made her symptoms worse which prompted her to come [facility] to ER. Patient was given Rx for UTI in two previous visits: patient admits not buying them (homeless) PNC: [facility] PMH: Panic attacks PSH: Gallbladder removed Allg: NKDA Meds: PNV A/P: 27 y/o F, , IUP@20.3 weeks GA comes to the [facility] second time in last 2 days for c/o same s ymptoms. Pateint has been c/o dysuria and suprapubic pain. - Doppler U/S, FHR - VS - Pateint was STRICTLY instructed on buying prescription medications for her UTI - Pateint was offered new Rx for treatment but patient has one RX given from ER yesterday - Pateint was educated on UTI and complications not treating it - Adviced against intercourse till symptoms resolves - Follow up with [facility], Appt today, - ER precautions discussed with patient (LOF/BV/Fever/dizziness) - Discharge Case discussed with Dr. Palma --- Jcarlos Beasley, PGY-[address] Palma: I have evaluated the patient independently and I agree with the above Abdomen - PN: Normal Lungs - PN: Normal Heart - PN: Normal Thyroid - PN: Normal Neurologic - PN: Normal HEENT - PN: Normal General - PN: Normal FHR - Baseline A Provider: 140 Comments, ACOG Physical Exam: Afebrile No CVA tenderness EGA AdmitDate IP: 20.3 Vital Signs Provider: Reviewed IP Chief Complaint: Signs/symptoms UTI Datetime: 08/02/2017 01:34 Extremities - PN: Normal Back - PN: Normal
[2017-08-03 08:11] VITALS: BP 83/41; PULSE 79; RESP 18; TEMP 98.4
== END 2017-08-03 04:00 | disposition home or self-care (01) ==
LOC: H.EROB2 02:30
DX: O23.42 Unspecified infection of urinary tract in pregnancy, second trimester (principal); Z3A.20 20 weeks gestation of pregnancy; Z59.0 Homelessness; Z91.14 Patient's other noncompliance with medication regimen; O26.92 Pregnancy related conditions, unspecified, second trimester; R10.2 Pelvic and perineal pain

== ENCOUNTER 2017-08-03 22:49 | Emergency (ER) | payer OTHER ==
[2017-08-03 22:49] VITALS: BMI 23.1
[2017-08-03 23:19] VITALS: BP 101/66; PULSE 65; RESP 16; TEMP 98.3; O2SAT 99
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
--- NOTE | 2017-08-04 08:15 | CARD ---
APPROVED REPORT EKG Measurement Heart [id number] <Conclusion> Normal sinus rhythm Normal ECG
== END 2017-08-04 05:55 | disposition home or self-care (01) ==
LOC: H.ER 22:49
DX: R07.89 Other chest pain (principal); O26.892 Other specified pregnancy related conditions, second trimester; O99.332 Smoking (tobacco) complicating pregnancy, second trimester; O99.342 Other mental disorders complicating pregnancy, second trimester; Z3A.21 21 weeks gestation of pregnancy; F31.9 Bipolar disorder, unspecified; F41.9 Anxiety disorder, unspecified; F20.9 Schizophrenia, unspecified; Z87.442 Personal history of urinary calculi

== ENCOUNTER 2017-08-08 19:16 | Emergency (ER) | payer OTHER ==
[2017-08-08 19:17] VITALS: BMI 23.1
[2017-08-08 19:38] VITALS: BP 108/71; PULSE 85; RESP 18; TEMP 98.6; O2SAT 100
[2017-08-08] MEDS ORDERED: Bacitracin 500 Units/gm Oint Foilpak UD TOP STA (20:26)
--- NOTE | 2017-08-08 21:48 | ED PDOC ---
Lower Extremity Pain/Injury Time Seen by Provider: 08/08/17 19:40 Chief Complaint (Nursing): Lower Extremity Problem/Injury Chief Complaint (Provider): Foot pain History Per: Patient History/Exam Limitations: no limitations Onset/Duration Of Symptoms: Mins Current Symptoms Are (Timing): Still Present Additional Complaint(s): 27 y/o female presents to the emergency department complaining of left foot pain, onset just prior to arrival. States she stepped on a branch and felt the wood go under her left foot. She removed all pieces of wood from the foot prior to arrival but came in to have an x-ray done. No changes in sensation. Pt. is 23 weeks . Denies vaginal bleeding, abd pain, pelvic pain. PMD: none Past Medical History Reviewed: Historical Data, Nursing Documentation, Vital Signs Vital Signs: Last Vital Signs Temp 98.6 F 08/08/17 19:34 Pulse 85 08/08/17 19:34 Resp 18 08/08/17 19:34 BP 108/71 08/08/17 19:34 Pulse Ox 100 08/08/17 19:34 - Medical History PMH: Anxiety, Back Problems, Bipolar Disorder, Depression, Gall Bladder Disease (cholecyctectomy), Kidney Stones, Chronic Kidney Disease, Schizophrenia Denies: Diabetes, Hepatitis, HIV, HTN, Seizures, Sexually Transmitted Disease - Surgical History Surgical History: Cholecystectomy, Tonsillectomy - Family History Family History: States: Unknown Family Hx - Social History Current smoker - smoking cessation education provided: Yes Alcohol: Social Drugs: Denies - Immunization History Hx Tetanus Toxoid Vaccination: No Hx Influenza Vaccination: No Hx Pneumococcal Vaccination: No - Home Medications Home Medications: Ambulatory Orders Medication Instructions Recorded Petrolatum [Vaseline Oint] 1 pkt TOP BIDHS PRN #1 fp 06/04/17 Doxylamine/Pyridoxine HCl (B6) 1 - 2 each PO HS #16 tablet. 06/07/17 [Raul Calvert 10-10 mg Tablet] Acetaminophen [Tylenol 325mg tab] 2 tab PO Q4 PRN #20 tab 06/17/17 Amoxicillin 875 mg PO BID #14 tab 06/18/17 Albuterol HFA [Ventolin HFA 90 1 puff IH ASDIR #1 unit 06/22/17 mcg/actuation (8 g)] Ondansetron ODT [Zofran ODT] 4 mg PO Q8 PRN #12 odt 06/22/17 Nitrofurantoin Macrocrystals 100 mg PO BID #10 cap 07/27/17 [Macrobid] Cephalexin [Keflex] 500 mg PO Q6 #40 capsule 08/02/17 - Allergies Allergies/Adverse Reactions: Allergies Allergy/AdvReac Type Severity Reaction Status Date / Time No Known Allergies Allergy Verified 06/17/17 15:06 Review of Systems ROS Statement: Except As Marked, All Systems Reviewed And Found Negative Musculoskeletal: Positive for: Foot Pain Neurological: Negative for: Weakness, Numbness Physical Exam - Reviewed Nursing Documentation Reviewed: Yes Vital Signs Reviewed: Yes - Physical Exam Appears: Positive for: Well, Non-toxic, No Acute Distress Head Exam: Positive for: ATRAUMATIC, NORMOCEPHALIC Skin: Positive for: Normal Color, Warm. Negative for: Rash Eye Exam: Positive for: Normal appearance Extremity: Positive for: Normal ROM (with full ROM of left foot actively), Other (superficial abrasion to the plantar surface of left foot without any residual FB). Negative for: Deformity, Swelling Neurologic/Psych: Positive for: Alert, Oriented - ECG O2 Sat by Pulse Oximetry: 100 (RA) Pulse Ox Interpretation: Normal - Progress ED Course And Treament: Wound irrigated heavily with NS. Wound explored and no foreign body noted. Bacitracin ointment and DSD applied. Advised to f/u with PMD or ED for wound check. Medical Decision Making Medical Decision Making: Time: 19:46 Initial Plan: --X-Ray left foot Patient informed of x-ray results. Scribe Attestation: Documented by Linh Rubio, acting as a scribe for Davion Eduardo PA-C. Provider Scribe Attestation: All medical record entries made by the Scribe were at my direction and personally dictated by me. I have reviewed the chart and agree that the record accurately reflects my personal performance of the history, physical exam, medical decision making, and the department course for this patient. I have also personally directed, reviewed, and agree with the discharge instructions and disposition. Disposition - Clinical Impression Clinical Impression: Abrasion - Patient ED Disposition Is Patient to be Admitted: No - Disposition Referrals: Podiatry Clinic [Outside] Disposition: Routine/Home Disposition Time: 20:54 Condition: STABLE Additional Instructions: Follow up with your doctor for further evaluation. Return to ED immediately if symptoms worsen. Instructions: Wound Care (DC) Forms: [facility] (Kyrgyz) Print Language: MALAYSIAN
--- NOTE | 2017-08-09 07:58 | RAD ---
PROCEDURE: Left Foot Radiographs. HISTORY: possible FB COMPARISON: None. FINDINGS: BONES: No acute fracture or destructive bony lesion identified. JOINTS: Normal. SOFT TISSUES: No retained radiodense foreign body appreciable. OTHER FINDINGS: None. IMPRESSION: Normal left foot radiographs.
== END 2017-08-08 20:54 | disposition home or self-care (01) ==
LOC: H.ER 19:16
DX: S90.812A Abrasion, left foot, initial encounter (principal); Y92.89 Other specified places as the place of occurrence of the external cause; F20.9 Schizophrenia, unspecified; F31.9 Bipolar disorder, unspecified; F41.9 Anxiety disorder, unspecified

== ENCOUNTER 2017-08-11 17:37 | Emergency (ER) | payer OTHER ==
[2017-08-11 17:37] VITALS: BMI 23.1
[2017-08-11 17:48] VITALS: O2SAT 99
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
--- NOTE | 2017-08-11 21:12 | US ---
EXAM: US After First Trimester, Transabdominal CLINICAL HISTORY: 27 years old, female; Pain; Other: Lower back pain; Gestational age or lmp: 03/19/17; ; Additional info: Lower abd pain, S/P fall on back TECHNIQUE: Real-time transabdominal obstetrical ultrasound of the maternal pelvis and a second or third trimester with image documentation. COMPARISON: No relevant prior studies available. FINDINGS: Fetus: Single live intrauterine gestation. Heart rate: heart rate of 148 beats per minute. Presentation: Cephalic. Placenta: Posterior fundal. No placenta previa or abruption. Amniotic fluid: Normal. Anatomy: No gross anomaly is appreciated. BIOMETRICS Gestational age: Estimated gestational age of 21 weeks 5 days by measurements. GENA: 12/17/2017 by ultrasound. EFW: Estimated weight of 426 g (84%). BPD: 5.4 cm, correlating with 22 weeks 3 days (96%). HC: 19.1 cm, correlating with 21 weeks 3 days (71%). AC: 16.0 cm, correlating with 21 weeks 1 day (58%). FL: 3.7 cm, correlating with 21 weeks 5 days (78%). MATERNAL: Uterus: Unremarkable. No myometrial mass. Cervix: No cervical dilatation or effacement. Adnexa: Ovaries not visualized. No adnexal masses. Free fluid: No significant free fluid. IMPRESSION: 1. Single live intrauterine gestation.
[2017-08-11 21:42] VITALS: BP 103/57; PULSE 78; RESP 18; TEMP 98.4
== END 2017-08-11 21:57 | disposition home or self-care (01) ==
LOC: H.ER 17:37
DX: O26.92 Pregnancy related conditions, unspecified, second trimester (principal); R10.2 Pelvic and perineal pain; M54.5 Low back pain; Z3A.21 21 weeks gestation of pregnancy

== ENCOUNTER 2017-08-30 18:05 | Emergency (ER) | payer OTHER ==
[2017-08-30 19:49] VITALS: BMI 22.6
[2017-08-30] MEDS ORDERED: Diphenhydramine 1% CREAM TOP ONE (19:52)
[2017-08-30] MEDS ORDERED: Calamine/Zinc Oxide LOTION TOP ONE (20:00)
[2017-08-30 20:27] LABS: SQUAMOUS EPITHIAL 5 /hpf (0-5); URINE BACTERIA RARE (<OCC); URINE BILIRUBIN NEGATIVE (NEGATIVE); URINE BLOOD NEGATIVE (NEGATIVE); URINE CLARITY SLIGHTY-CLOUDY (Clear); URINE COLOR STRAW (YELLOW); URINE GLUCOSE (UA) NEG (Normal); URINE LEUKOCYTE ESTERASE LARGE Leu/uL (Negative); URINE PROTEIN NEGATIVE (NEGATIVE); URINE UROBILINOGEN 0.2-1.0 mg/dL (0.2-1.0)
--- NOTE | 2017-08-30 23:06 | OBHP ---
Datetime: 08/30/2017 20:51 IP Adm Impression: , intrauterine IP Admit Plan: Observation/Evaluation; Discharge home Admit Comment, IP Provider: PT is a with IUP at 24.2 weeks gestation (GENA 12/18/17) presents t o [facility] with complaints of lower abominal cramping pain for the past hour. Denies vb or lof. + FM. Als o reports that she has been having a diffusely pruritic rash for the past 2 months. Denies any insect bites, allergies, or skin conditions. PNC: Recieving care at a clinic on [facility]. Does not know OBGYN name. States PNC thus far has been unremarkable. No records on hand. OBHx: 2 prior (2012, 2013)-FT, no complications. 1 SAB PMHX: Bipolar/Schitzophrenia, Anxiety (stopped taking medication when ) Medications: PNV PSHx: Cholecystectomy Allergies: NKDA Vitals: BP 108/79,HR 87 PE: PT appears comfortable, NAD Cardio: RRR, No murmurs Pulm: CTABL, no wheezin Abdomen: Gravid, NT Extremities: No pedal edema Skin: Scattered pinpoint erythematous papules, some w/ dried blood, few excoriations [id number], reactive, no decels [employer]: no ctx A: IUP 24 weeks presenting with lower abdominal pain and diffuse rash. Maternal vital signs and FH R tracings reassuring. P: Observation. Benadryl PO and Topical. Calamine lotion. U/A: no bacteria, Nitrite negative On re-evaluation, pt states pruritis of rash improved, abdominal pain minimal. Discharge home, adv ised to f/u with OBGYN in clinic. Early labor precautions given. Discussed case with OB Hospitalist Ruiz, PGY1 Addendum by Dr. Palma: I have evaluated the patient independently and I agree with the above EGA AdmitDate IP: 24.2 Vital Signs Provider: Reviewed; Within Normal Limits (Annotations: Data stored by CPN on behalf of user) IP Chief Complaint: Maternal discomfort; Other
--- NOTE | 2017-08-30 23:08 | OBDCSUM ---
Datetime: 08/30/2017 21:18 Discharged to, Provider: Home Follow up at, Provider: Alexys Tejada Instr Activity: Normal activity Disch Instr Diet: Regular Discharge Time: 08/30/2017 21:18 Follow up in weeks, Provider: September 09, 2017 @ 10 am as scheduled Disch Referrals: None Discharge Diagnosis Prov Other: pelvic pressure
[2017-08-31 01:38] VITALS: BP 102/66; PULSE 76; RESP 18; TEMP 98.1; O2SAT 100
== END 2017-08-30 21:30 | disposition home or self-care (01) ==
LOC: H.EROB2 18:05
DX: O26.92 Pregnancy related conditions, unspecified, second trimester (principal); R10.2 Pelvic and perineal pain; R21 Rash and other nonspecific skin eruption; Z3A.24 24 weeks gestation of pregnancy

== ENCOUNTER 2017-09-02 11:30 | Emergency (ER) | payer OTHER ==
[2017-09-02 11:31] VITALS: BMI 22.6
[2017-09-02 12:15] VITALS: BP 106/68; PULSE 88; RESP 16; TEMP 98; O2SAT 98
--- NOTE | 2017-09-02 13:36 | ED PDOC ---
HPI: Skin/Bite Injury Time Seen by Provider: 09/02/17 12:17 Chief Complaint (Nursing): Abnormal Skin Integrity Chief Complaint (Provider): Abnormal Skin Integrity History Per: Patient History/Exam Limitations: no limitations Onset/Duration Of Symptoms: Other (x2 months) Current Symptoms Are (Timing): Still Present Additional Complaint(s): 27 year old female presented to ED with complaint of pruritus rash on abdomen, chest, back and extremities with onset of 2 months. Patient states that she was seen by sulfate drier machine operator in ED last week for the same symptoms and was advised to take Benadryl which she hasn't and calamine lotion which she has. Patient indicates she has a scheduled appointment with her sulfate drier machine operator on September 09. Denied fever, abd pain. pelvic pain, vaginal bleeding, CP, SOB. Of note, patient is 25 weeks and has movements. Patient is requesting for food. PCP: Dr. Stafford Past Medical History Reviewed: Historical Data, Nursing Documentation, Vital Signs Vital Signs: Last Vital Signs Temp 98.0 F 09/02/17 12:13 Pulse 88 09/02/17 12:13 Resp 16 09/02/17 12:13 BP 106/68 09/02/17 12:13 Pulse Ox 98 09/02/17 12:13 - Medical History PMH: Anxiety, Back Problems, Bipolar Disorder, Depression, Gall Bladder Disease (cholecyctectomy), Kidney Stones, Chronic Kidney Disease, Schizophrenia Denies: Diabetes, Hepatitis, HIV, HTN, Seizures, Sexually Transmitted Disease - Surgical History Surgical History: Cholecystectomy, Tonsillectomy - Family History Family History: States: Unknown Family Hx - Immunization History Hx Tetanus Toxoid Vaccination: No Hx Influenza Vaccination: No Hx Pneumococcal Vaccination: No - Home Medications Home Medications: Ambulatory Orders Medication Instructions Recorded Petrolatum [Vaseline Oint] 1 pkt TOP BIDHS PRN #1 fp 06/04/17 Doxylamine/Pyridoxine HCl (B6) 1 - 2 each PO HS #16 tablet. 06/07/17 [Raul Calvert 10-10 mg Tablet] Acetaminophen [Tylenol 325mg tab] 2 tab PO Q4 PRN #20 tab 06/17/17 Amoxicillin 875 mg PO BID #14 tab 06/18/17 Albuterol HFA [Ventolin HFA 90 1 puff IH ASDIR #1 unit 06/22/17 mcg/actuation (8 g)] Ondansetron ODT [Zofran ODT] 4 mg PO Q8 PRN #12 odt 06/22/17 Nitrofurantoin Macrocrystals 100 mg PO BID #10 cap 07/27/17 [Macrobid] Cephalexin [Keflex] 500 mg PO Q6 #40 capsule 08/02/17 - Allergies Allergies/Adverse Reactions: Allergies Allergy/AdvReac Type Severity Reaction Status Date / Time No Known Allergies Allergy Verified 09/02/17 12:13 Review of Systems ROS Statement: Except As Marked, All Systems Reviewed And Found Negative Constitutional: Negative for: Fever Cardiovascular: Negative for: Chest Pain Respiratory: Negative for: Shortness of Breath Gastrointestinal: Negative for: Abdominal Pain Genitourinary Female: Negative for: Vaginal Bleeding Musculoskeletal: Negative for: Other (pelvic pain) Skin: Positive for: Rash (Pruritic on abd, chest, back and extremities) Physical Exam - Reviewed Nursing Documentation Reviewed: Yes Vital Signs Reviewed: Yes - Physical Exam Appears: Positive for: Non-toxic, No Acute Distress Head Exam: Positive for: ATRAUMATIC, NORMAL INSPECTION, NORMOCEPHALIC Skin: Positive for: Rash (without burrowing, vesicles, surrounding errythema, or pustules) Eye Exam: Positive for: Normal appearance ENT: Positive for: Normal ENT Inspection Neck: Positive for: Normal, Painless ROM Cardiovascular/Chest: Positive for: Regular Rate, Rhythm. Negative for: Murmur Respiratory: Positive for: Normal Breath Sounds. Negative for: Wheezing, Respiratory Distress Gastrointestinal/Abdominal: Positive for: Soft, Other (Scattered erythematous papules on epigastric area). Negative for: Tenderness Back: Positive for: Other (Scattered erythematous papules on upper back) Extremity: Positive for: Normal ROM (upper/lower), Other (Scattered erythematous papules on all 4 extremities) Neurologic/Psych: Positive for: Alert, Oriented. Negative for: Motor/Sensory Deficits - ECG O2 Sat by Pulse Oximetry: 98 (RA) Pulse Ox Interpretation: Normal Medical Decision Making Medical Decision Making: Initial impression: rash Initial plan: Benadryl 25mg PO 13:18 Patient advised to follow up with sulfate drier machine operator and to use benadryl PO as advised. Patient agrees with care and is stable for discharge. Scribe Attestation: Documented by Yaniv Camacho acting as a scribe for Davion Eduardo Provider Scribe Attestation: All medical record entries made by the Scribe were at my direction and personally dictated by me. I have reviewed the chart and agree that the record accurately reflects my personal performance of the history, physical exam, medical decision making, and the department course for this patient. I have also personally directed, reviewed, and agree with the discharge instructions and disposition. Disposition - Clinical Impression Clinical Impression: Rash - Disposition Referrals: [facility] [place] [Outside] [facility] [Outside] Disposition: Routine/Home Disposition Time: 13:18 Condition: STABLE Additional Instructions: Use Calamine lotion and Benadryl (25mg-50mg) for your rash. Return to ED immediately if symptoms worsen Follow up with your OBGYN on 09/09/2017 as you had previously scheduled without fail Instructions: Skin Rash (DC) Forms: [facility] (Gambian) Print Language: CYMRAES
== END 2017-09-02 13:18 | disposition home or self-care (01) ==
LOC: H.ER 11:30
DX: R21 Rash and other nonspecific skin eruption (principal); Z3A.25 25 weeks gestation of pregnancy; F41.9 Anxiety disorder, unspecified; F31.9 Bipolar disorder, unspecified; F20.9 Schizophrenia, unspecified; O26.832 Pregnancy related renal disease, second trimester; O26.892 Other specified pregnancy related conditions, second trimester

== ENCOUNTER 2017-09-04 00:59 | Emergency (ER) | payer OTHER ==
[2017-09-04] MEDS ORDERED: Calamine/Zinc Oxide LOTION TOP ONE (01:42)
[2017-09-04 07:16] VITALS: BP 94/57; PULSE 65
--- NOTE | 2017-09-04 13:18 | OBHP ---
Datetime: 09/04/2017 01:33 IP Adm Impression: , intrauterine IP Admit Plan: Observation/Evaluation; Discharge home Admit Comment, IP Provider: Pt is a with IUP 25wks presenting to [facility] with complaint of diffuse rash associated with pruritis for the past 2 months. Pt has been seen prior for the same complaint a nd was treated for bed bugs with calamine lotion. Pt is aware that she has a bed bug infestation but has not dont anything to treat the infection and is also sleeping in the same bed. Now also reports a new rash under her right breast that developed one week ago. Report that before the rash developed, she experienced a burning sensation for a few days. Denies any abdominal pain, vb, lof. +FM. PNC: Recieving care at a clinic at [facility]. Next visit, 09/09. States PNC thus far has be en unremarkable. No records on hand. OBHx: 2 prior (2012, 2013)-FT, no complications. 1 SAB PMHX: Bipolar/Schitzophrenia, Anxiety (stopped taking medication when ) Medications: PNV PSHx: Cholecystectomy Allergies: NKDA Vitals: BP 108/79,HR 87 PE: PT appears comfortable, NAD Cardio: RRR, No murmurs Pulm: CTABL, no wheezin Abdomen: Gravid, NT Extremities: No pedal edema Skin: Scattered pinpoint erythematous papules on upper and lower extremities Right inferior breast - vesicular lesions with an erythematous base, following a dermatomal distribution [id number], reactive, no decels [place]: no ctx A: IUP 25 weeks presenting diffuse rash, likely secondarily to bed bugs. Maternal vital signs and FHR tracings reassuring. P: Observation. Calamine lotion. On re-evaluation, pt states pruritis of rash improved after calam ine lotion. Discharge home, advised to f/u with OBGYN in clinic. Early labor precautions given. Discussed case with OB Hospitalist Ruiz, PGY1 OB Hospitalist note : Pt was seen/gree with PGY1 note - D/C home ZENAIDA LUNDBERG AdmitDate IP: 25.0 Vital Signs Provider: Reviewed; Within Normal Limits IP Chief Complaint: Other
--- NOTE | 2017-09-04 13:18 | OBDCSUM ---
Datetime: 09/04/2017 02:21 Discharged to, Provider: Home Follow up at, Provider: [facility] Disch Instr Activity: Normal activity Disch Instr Diet: Regular Discharge Time: 09/04/2017 02:21 Follow up in weeks, Provider: 09/09/2017 Disch Referrals: None Disch Activity Restrictions: No lifting
== END 2017-09-04 03:12 | disposition home or self-care (01) ==
LOC: H.EROB2 00:59
DX: O26.92 Pregnancy related conditions, unspecified, second trimester (principal); R21 Rash and other nonspecific skin eruption; L29.8 Other pruritus; Z3A.25 25 weeks gestation of pregnancy

== ENCOUNTER 2017-09-09 16:17 | Emergency (ER) | payer OTHER ==
[2017-09-09 16:18] VITALS: BMI 22.6
[2017-09-09 16:37] VITALS: BP 98/69; PULSE 94; RESP 18; TEMP 98.3; O2SAT 99
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
== END 2017-09-09 17:31 | disposition home or self-care (01) ==
LOC: H.ER 16:17
DX: S60.221A Contusion of right hand, initial encounter (principal); W22.8XXA Striking against or struck by other objects, initial encounter; Y92.89 Other specified places as the place of occurrence of the external cause; F20.9 Schizophrenia, unspecified; F31.9 Bipolar disorder, unspecified; F41.9 Anxiety disorder, unspecified; N18.9 Chronic kidney disease, unspecified

== ENCOUNTER 2017-09-12 20:39 | Emergency (ER) | payer OTHER ==
[2017-09-12 21:15] VITALS: BMI 25.0
[2017-09-12 21:24] LABS: SQUAMOUS EPITHIAL 3 /hpf (0-5); URINE BACTERIA RARE (<OCC); URINE BILIRUBIN NEGATIVE (NEGATIVE); URINE BLOOD NEGATIVE (NEGATIVE); URINE CLARITY SLIGHTY-CLOUDY (Clear); URINE COLOR YELLOW (YELLOW); URINE GLUCOSE (UA) NEG (Normal); URINE LEUKOCYTE ESTERASE NEGATIVE Leu/uL (Negative); URINE PROTEIN NEGATIVE (NEGATIVE)
[2017-09-14 18:04] VITALS: BP 98/57; PULSE 75; RESP 18; TEMP 98.2; O2SAT 100
== END 2017-09-12 22:00 | disposition home or self-care (01) ==
LOC: H.EROB2 20:39
DX: O26.92 Pregnancy related conditions, unspecified, second trimester (principal); R10.2 Pelvic and perineal pain; Z3A.26 26 weeks gestation of pregnancy

== ENCOUNTER 2017-09-18 14:21 | Emergency (ER) | payer OTHER ==
[2017-09-18 14:48] VITALS: BMI 22.6
[2017-09-18 15:21] LABS: BASO % 0.4 % (0.0-2.0); EOS # 0.3 K/uL (0.0-0.7); EOS % 2.7 % (0.0-4.0); HEMOGLOBIN 9.9 g/dL (12.0-16.0); LYMPH # 1.8 K/uL (1.0-4.3); LYMPH % 14.5 % (20.0-40.0); MEAN CELL VOLUME 96.2 fl (81.0-99.0); MEAN CORPUSCULAR HEMOGLOBIN 31.9 pg (27.0-31.0); MEAN CORPUSCULAR HGB CONC 33.1 g/dL (33.0-37.0); MEAN PLATELET VOLUME 8.7 fl (7.2-11.7); MONO # 0.7 K/uL (0.0-0.8); MONO % 5.6 % (0.0-10.0); NEUT # 9.6 K/uL (1.8-7.0); NEUT % 76.8 % (50.0-75.0); RBC 3.12 Mil/uL (3.80-5.20); WHITE BLOOD COUNT 12.5 K/uL (4.8-10.8)
[2017-09-18 15:39] LABS: BLOOD UREA NITROGEN 5 mg/dl (7-17); CALCIUM 8.6 mg/dL (8.4-10.2); GFR AFRICAN-AMERICAN > 60; GFR NON-AFRICAN AMERICAN > 60
[2017-09-18 16:38] LABS: SQUAMOUS EPITHIAL 6 /hpf (0-5); URINE BACTERIA OCC (<OCC); URINE BILIRUBIN NEGATIVE (NEGATIVE); URINE BLOOD NEGATIVE (NEGATIVE); URINE CALCIUM OXALATE CRYSTALS OCC /hpf (<OCC); URINE CLARITY CLOUDY (Clear); URINE COLOR YELLOW (YELLOW); URINE GLUCOSE (UA) NEG (Normal); URINE HYALINE CAST 0-2 /hpf (0-2); URINE LEUKOCYTE ESTERASE LARGE Leu/uL (Negative); URINE PROTEIN NEGATIVE (NEGATIVE); URINE UROBILINOGEN 0.2-1.0 mg/dL (0.2-1.0)
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
[2017-09-18 22:08] VITALS: BP 96/56; PULSE 78; RESP 18; TEMP 98.2; O2SAT 99
== END 2017-09-18 17:45 | disposition home or self-care (01) ==
LOC: H.EROB2 14:21
DX: O26.92 Pregnancy related conditions, unspecified, second trimester (principal); Z3A.27 27 weeks gestation of pregnancy; R42 Dizziness and giddiness; O21.0 Mild hyperemesis gravidarum
CPT/HCPCS: 80048; 81003; 85025; 96374; 99283; J2405; J7120

== ENCOUNTER 2017-10-03 03:02 | Emergency (ER) | payer OTHER ==
[2017-10-03 03:02] VITALS: BMI 22.6
[2017-10-03 03:26] VITALS: BP 110/73; PULSE 80; TEMP 98.9; O2SAT 100
--- NOTE | 2017-10-03 03:29 | ED PDOC ---
HPI: Dental Pain/Injury Time Seen by Provider: 10/03/17 03:04 Chief Complaint (Nursing): Dental Pain Chief Complaint (Provider): LEft upper dental pain History Per: Patient History/Exam Limitations: no limitations Onset/Duration Of Symptoms: Days Current Symptoms Are (Timing): Still Present Quality: Sharp Additional Complaint(s): 27 yo female presents with dental pain x 20 minutes. Pt is 24 weeks and states she did not have tylenol. Pt denies fever/chills or drainage. PT denies abdominal pain, pelvic pain, vaginal bleeding/vaginal discharge. PT reports movement. Past Medical History Reviewed: Historical Data, Nursing Documentation, Vital Signs Vital Signs: Last Vital Signs Temp 98.9 F 10/03/17 03:24 Pulse 80 10/03/17 03:24 Resp 16 10/03/17 03:24 BP 110/73 10/03/17 03:24 Pulse Ox 100 10/03/17 03:24 - Medical History PMH: Anxiety, Back Problems, Bipolar Disorder, Depression, Gall Bladder Disease (cholecyctectomy), Kidney Stones, Chronic Kidney Disease, Schizophrenia Denies: Diabetes, Hepatitis, HIV, HTN, Seizures, Sexually Transmitted Disease - Surgical History Surgical History: Cholecystectomy, Tonsillectomy - Family History Family History: States: Unknown Family Hx - Living Arrangements Living Arrangements: With Family - Social History Current smoker - smoking cessation education provided: No Alcohol: None Drugs: Denies - Immunization History Hx Tetanus Toxoid Vaccination: No Hx Influenza Vaccination: No Hx Pneumococcal Vaccination: No - Home Medications Home Medications: Ambulatory Orders Medication Instructions Recorded Pnv with Ca,No.72/Iron/FA [Pnv 1 tab PO DAILY 09/18/17 Plus Multivit Tab] - Allergies Allergies/Adverse Reactions: Allergies Allergy/AdvReac Type Severity Reaction Status Date / Time No Known Allergies Allergy Verified 09/14/17 05:29 Review of Systems ROS Statement: Except As Marked, All Systems Reviewed And Found Negative Constitutional: Negative for: Fever, Chills ENT: Positive for: Other (Left upper dental pain x 20 minutes ) Respiratory: Negative for: Cough, Shortness of Breath Gastrointestinal: Negative for: Nausea, Vomiting, Abdominal Pain Genitourinary Female: Negative for: Dysuria, Vaginal Discharge, Vaginal Bleeding , Pelvic Pain Physical Exam - Reviewed Nursing Documentation Reviewed: Yes Vital Signs Reviewed: Yes - Physical Exam Appears: Positive for: Well, Non-toxic, No Acute Distress Head Exam: Positive for: ATRAUMATIC, NORMAL INSPECTION, NORMOCEPHALIC Skin: Positive for: Normal Color, Warm, DRY Eye Exam: Positive for: Normal appearance ENT: Positive for: Other (Poor dentistion, no abscess formation). Negative for : Normal ENT Inspection Neck: Positive for: Normal, Painless ROM Cardiovascular/Chest: Positive for: Regular Rate, Rhythm Respiratory: Positive for: CNT, Normal Breath Sounds Back: Positive for: Normal Inspection Extremity: Positive for: Normal ROM Neurologic/Psych: Positive for: Alert, Oriented - ECG O2 Sat by Pulse Oximetry: 100 Medical Decision Making Medical Decision Making: Tylenol PO in Er. Disposition - Clinical Impression Clinical Impression: Pain, dental - Patient ED Disposition Is Patient to be Admitted: No Counseled Patient/Family Regarding: Diagnosis, Need For Followup - Disposition Disposition: Routine/Home Disposition Time: 03:27 Condition: STABLE Additional Instructions: Tylenol for pain. Follow-up with dentist. Instructions: Dental Pain
[2017-10-03 05:56] VITALS: RESP 18
== END 2017-10-03 03:40 | disposition home or self-care (01) ==
LOC: H.ER 03:02
DX: K08.89 Other specified disorders of teeth and supporting structures (principal)

== ENCOUNTER 2017-11-21 16:47 | Emergency (ER) | payer OTHER ==
[2017-11-21 16:47] VITALS: BMI 22.6
[2017-11-21 17:01] VITALS: BP 118/78; RESP 18; TEMP 98.5; O2SAT 99
[2017-11-21 17:34] VITALS: PULSE 92
--- NOTE | 2017-11-21 17:38 | ED PDOC ---
HPI: Abdomen Time Seen by Provider: 11/21/17 17:01 Chief Complaint (Nursing): GI Problem Chief Complaint (Provider): rectal pain History Per: Patient Additional Complaint(s): 27 yo female, no PMH, presents to ED currently at 32 weeks with complaints of rectal pain. Pt is . Patient reports that for the last 2 days she noted a "mass" to her rectum, she has increased "pressure when sitting," and pain upon having a BM. no rectal bleeding. no medications taken to allevaite symptoms thus far. No abdominal pain, LOF or vaginal bleeding. (+) FM Pt denies recent constipation or straining to pass BM. Pt notes soft stools Past Medical History Reviewed: Nursing Documentation, Vital Signs Vital Signs: Last Vital Signs Temp 98.5 F 11/21/17 16:58 Pulse 92 H 11/21/17 17:33 Resp 18 11/21/17 16:58 BP 118/78 11/21/17 16:58 Pulse Ox 99 11/21/17 16:58 - Medical History PMH: Anxiety, Back Problems, Bipolar Disorder, Depression, Gall Bladder Disease (cholecyctectomy), Kidney Stones, Chronic Kidney Disease, Schizophrenia Denies: Diabetes, Hepatitis, HIV, HTN, Seizures, Sexually Transmitted Disease - Surgical History Surgical History: Cholecystectomy, Tonsillectomy - Family History Family History: States: Unknown Family Hx - Living Arrangements Living Arrangements: With Family - Social History Current smoker - smoking cessation education provided: No Alcohol: None Drugs: Denies - Immunization History Hx Tetanus Toxoid Vaccination: No Hx Influenza Vaccination: No Hx Pneumococcal Vaccination: No - Home Medications Home Medications: Ambulatory Orders Medication Instructions Recorded Pnv with Ca,No.72/Iron/FA [Pnv 1 tab PO DAILY 09/18/17 Plus Multivit Tab] Phenylephrine HCl/Witch Candida 51 gm TP QID #1 gel..gram. 11/21/17 [Preparation H Cooling Gel] - Allergies Allergies/Adverse Reactions: Allergies Allergy/AdvReac Type Severity Reaction Status Date / Time No Known Allergies Allergy Verified 09/14/17 05:29 Review of Systems ROS Statement: Except As Marked, All Systems Reviewed And Found Negative Gastrointestinal: Positive for: Rectal Pain Physical Exam - Reviewed Nursing Documentation Reviewed: Yes Vital Signs Reviewed: Yes - Physical Exam Appears: Positive for: Well, Non-toxic, No Acute Distress Head Exam: Positive for: ATRAUMATIC, NORMAL INSPECTION, NORMOCEPHALIC Skin: Positive for: Normal Color, Warm, DRY Eye Exam: Positive for: EOMI, Normal appearance, PERRL ENT: Positive for: Normal ENT Inspection Neck: Positive for: Normal, Painless ROM Cardiovascular/Chest: Positive for: Regular Rate, Rhythm Respiratory: Positive for: CNT, Normal Breath Sounds Gastrointestinal/Abdominal: Positive for: Normal Exam, Soft Back: Positive for: Normal Inspection Rectal: Positive for: Hemorrhoids (2 small, non thrombosed hemorrhoids noted, no rectal bleeeing), Tenderness Extremity: Positive for: Normal ROM Neurologic/Psych: Positive for: Alert, Oriented - ECG O2 Sat by Pulse Oximetry: 99 Medical Decision Making Medical Decision Making: Pt educated on supportive care measures. Disposition - Clinical Impression Clinical Impression: Hemorrhoid - Patient ED Disposition Is Patient to be Admitted: No - Disposition Disposition: Routine/Home Disposition Time: 17:40 Condition: STABLE Prescriptions: Phenylephrine HCl/Witch Candida [Preparation H Cooling Gel] 51 gm TP QID #1 gel..gram. Instructions: Hemorrhoids Forms: [facility] (Kittitian)
== END 2017-11-21 17:40 | disposition home or self-care (01) ==
LOC: H.ER 16:47
DX: O22.42 Hemorrhoids in pregnancy, second trimester (principal)

== ENCOUNTER 2017-12-15 21:49 | Inpatient (IN) | payer OTHER ==
[2017-12-15 22:31] VITALS: BMI 24.3
[2017-12-15] MEDS ORDERED: Lactated Ringer's 1,000 ML IV ONE (22:43)
[2017-12-15] MEDS ORDERED: Lactated Ringer's 1,000 ML IV SCH (22:45)
[2017-12-15] MEDS ORDERED: Oxytocin 30 UNIT 30 UNITS/500 ML BAG IV ONE (22:46)
[2017-12-15] MEDS ORDERED: OXYTOCIN/0.9 % NS 20 UNIT/1,000 ML BAG IV SCH (23:00)
[2017-12-15 23:09] LABS: BASO % 0.2 % (0.0-2.0); EOS # 0.1 K/uL (0.0-0.7); EOS % 0.7 % (0.0-4.0); HEMOGLOBIN 11.5 g/dL (12.0-16.0); LYMPH # 2.6 K/uL (1.0-4.3); LYMPH % 18.7 % (20.0-40.0); MEAN CELL VOLUME 95.5 fl (81.0-99.0); MEAN CORPUSCULAR HEMOGLOBIN 32.1 pg (27.0-31.0); MEAN CORPUSCULAR HGB CONC 33.6 g/dL (33.0-37.0); MEAN PLATELET VOLUME 9.3 fl (7.2-11.7); MONO # 0.9 K/uL (0.0-0.8); MONO % 6.2 % (0.0-10.0); NEUT # 10.4 K/uL (1.8-7.0); NEUT % 74.2 % (50.0-75.0); RBC 3.59 Mil/uL (3.80-5.20); RED CELL DISTRIBUTION WIDTH 13.2 % (11.5-14.5)
[2017-12-15 23:19] VITALS: O2SAT 100
[2017-12-16] MEDS ORDERED: Lidocaine 2% MPF (5 ml) Inj ONE (03:50)
[2017-12-16] MEDS ORDERED: Oxycodone/Acetaminophen 5/325 mg Tab PO PRN ×2 (04:21→06:03)
[2017-12-16] MEDS ORDERED: Benzocaine/Menthol SPRAY TOP PRN ×2 (04:21→06:03)
[2017-12-17 06:20] LABS: BASO # 0.1 K/uL (0.0-0.2); BASO % 0.5 % (0.0-2.0); EOS # 0.1 K/uL (0.0-0.7); EOS % 0.5 % (0.0-4.0); HEMOGLOBIN 10.8 g/dL (12.0-16.0); LYMPH # 3.3 K/uL (1.0-4.3); LYMPH % 24.5 % (20.0-40.0); MEAN CELL VOLUME 96.6 fl (81.0-99.0); MEAN CORPUSCULAR HEMOGLOBIN 32.1 pg (27.0-31.0); MEAN CORPUSCULAR HGB CONC 33.2 g/dL (33.0-37.0); MEAN PLATELET VOLUME 9.3 fl (7.2-11.7); MONO # 0.6 K/uL (0.0-0.8); MONO % 4.5 % (0.0-10.0); NEUT # 9.3 K/uL (1.8-7.0); NRBC % 0.1 % (0.0-0.0); RBC 3.36 Mil/uL (3.80-5.20); RED CELL DISTRIBUTION WIDTH 13.4 % (11.5-14.5); WHITE BLOOD COUNT 13.3 K/uL (4.8-10.8)
--- NOTE | 2017-12-17 07:36 | OBPPN ---
Datetime: 12/17/2017 06:43 PP Pain Prov: Within normal limits PP Nausea Prov: Denies PP Flatus Prov: Yes PP BM Prov: No PP Breasts Prov: Not Done PP Heart Prov: Normal PP Lungs Prov: Normal PP Abdomen/Uterus Prov: Normal PP Lochia Prov: Normal PP Vulva/Perineum Prov: Not Done PP CVA Tenderness Prov: Not Done PP Extremities Prov: Normal PP C/S Incision Prov: Not Applicable PP Progress Prov: Normal PP Comments Phys Exam Prov: See progress note PP Impression Prov: Normal progression PP Plan Prov: Continue present management PP Progress Note Prov: S: 27 yo female 38.6 SP NVD on 12/16/17 evaluated on PPD1. Pt is seen and examined at bed side. No acute event since delivery. Pt pain is controlled with medication. Pt h ave no other complain. She was able to ambulate and void freely. Pt state that she have passed gas, b ut no stool. Lochia is less than menses. She is and using formula. PT denies fever, ch ills, diarrhea, nausea/vomiting, chest pain, dyspnea, and dizziness. Pt refuse circumcision O: 11.5/34.3-> 14.5/36.1 VS: Stable, WNL GEN: NAD Cardio: S1S2, no murmurs or extra heart sound Lungs: clear breath sounds b/l, no wheezing Abdomen: BS+, appropriate tenderness to palpation. Uterus is firm at umbilicus EXT: No edema, calves non-tender NEURO/PSYCH: AAOx3, no grossly focal deficits, preserved affect and mood. H/H (post ): 12.5/36.1 Assessment/Plan: 27 yo female 38.6 SP NVD 12/16/17 evaluated on PPD1. Pt remains afebrile , tolerating pain with medication. Tolerating diet. Anticipating tomorrow 12/18/17. Continue with cur rent management Encourage and ambulating Keep monitoring lochia, fundus and vitals Continue Ibuprofen 600mg q6 for mild-moderate pain. [email or web address] OB Hospitalist Addendum: Pt seen and examined by me. Agree w/ above. PPD 1 s/p , doing well, breast and bottle feeding. Continue current management. (ES) Vital Signs Provider PP: Reviewed; Within Normal Limits
[2017-12-17 08:43] LABS: RUBELLA AB (IGG) 1.05 index
--- NOTE | 2017-12-17 13:59 | CP.PCM.CON ---
History of Present Illness - History of Present Illness History of Present Illness: pt is a 27 ys old female with previous psychiatric diagnosis of schizoaffective disorder, pt just delivered a one day old male , pt has not been on medications for the 9 months of , however has been attending the partial hospital program at [facility] FOUR TIMES A WEEK ON EVALUATION TODAY, PT APPEARS CALM AND COOPERATIVE, HOLDING THE NEW AND APPEARS BONDING WELL WITH IT, pt denied any current changes in sleep or appetite reported , mood is stable , denied any current perceptual disturbances, non elicited denied any current suicidal or homicidal ideation, denied any discussed with pt restarting psychotropic medications, pt reported that she would possibly not nurse the new born to be restarted on her medications, discussed possibility of starting risperidone 2mg daily, also pt reported she would continue to follow up with [facility] outpatient services on discharge Past Patient History - Infectious Disease Hx of Infectious Diseases: None - Past Social History Smoking Status: Never Smoked - CARDIAC Hx Hypertension: No - PULMONARY Hx Tuberculosis: No - NEUROLOGICAL Hx Seizures: No - HEENT Hx HEENT Problems: No - RENAL Hx Chronic Kidney Disease: Yes Hx Kidney Stones: Yes - ENDOCRINE/METABOLIC Hx Endocrine Disorders: No - HEMATOLOGICAL/ONCOLOGICAL Hx Human Immunodeficiency Virus (HIV): No - INTEGUMENTARY Hx Dermatological Problems: No - MUSCULOSKELETAL/RHEUMATOLOGICAL Hx Musculoskeletal Disorders: Yes Hx Back Pain: Yes - GASTROINTESTINAL Hx Gall Bladder Disease: Yes (cholecyctectomy) - GENITOURINARY/GYNECOLOGICAL Hx Sexually Transmitted Disorders: No - PSYCHIATRIC Hx Anxiety: Yes Hx Bipolar Disorder: Yes Hx Depression: Yes Hx Schizophrenia: Yes - SURGICAL HISTORY Hx Cholecystectomy: Yes Hx Tonsillectomy: Yes - ANESTHESIA Hx Anesthesia: Yes Hx Anesthesia Reactions: No Hx Malignant Hyperthermia: No Meds Allergies/Adverse Reactions: Allergies Allergy/AdvReac Type Severity Reaction Status Date / Time No Known Allergies Allergy Verified 09/14/17 05:29 - Medications Medications: Current Medications Benzocaine/Menthol (Dermoplast) 1 sprays TOP Q6 PRN PRN Reason: Perineal Discomfort Ibuprofen (Motrin Tab) 600 mg PO Q6 PRN PRN Reason: Pain, Mild (1-3) Oxycodone/Acetaminophen (Percocet 5/325 Mg Tab) 1 tab PO Q4 PRN PRN Reason: Pain, moderate (4-7) Stop: 12/19/17 04:22 Physical Exam - Psychiatric Exam Additional comments: pt seen in her bed , holding the new born calm cooperative reported mood excited , appropriate effect, thought form goal directed, speech normal denied any current suicidal or homicidal ideation denied perceptual disturbances , non elicited , alert awake ox3 Results - Vital Signs Recent Vital Signs: Last Vital Signs Temp 98.6 F 12/15/17 23:18 Pulse 90 12/15/17 23:18 Resp 20 12/15/17 23:18 BP 107/76 12/15/17 23:18 Pulse Ox 100 12/15/17 23:18 - Labs Result Diagrams: 12/17/17 06:00 Labs: Laboratory Results - last 24 hr 12/15/17 12/15/17 12/17/17 13:00 22:45 06:00 WBC 13.3 H RBC 3.36 L Hgb 10.8 L Hct 32.4 L MCV 96.6 MCH 32.1 H MCHC 33.2 RDW 13.4 Plt Count 309 MPV 9.3 Neut % (Auto) 70.0 Lymph % (Auto) 24.5 [place] % (Auto) 4.5 Eos % (Auto) 0.5 Baso % (Auto) 0.5 Neut # (Auto) 9.3 H Lymph # (Auto) 3.3 [place] # (Auto) 0.6 Eos # (Auto) 0.1 Baso # (Auto) 0.1 RPR Nonreactive Rubella IgG Antibody 1.05 Assessment & Plan - Assessment and Plan (Free Text) Assessment: schizoaffective disorder bipolar type Plan: recommend pt to be started on risperidone 0mg daily based on the fact that she would not be nursing the new born social services coordinator to arrange for appointment with outpatient services at [facility] on discharge
[2017-12-19 11:12] VITALS: BP 121/68; PULSE 78; RESP 18; TEMP 98.8
--- NOTE | 2017-12-19 14:57 | OBPPN ---
Datetime: 12/18/2017 08:18 PP Pain Prov: Within normal limits PP Flatus Prov: Yes PP BM Prov: Yes PP Breasts Prov: Not Done PP Heart Prov: Normal PP Lungs Prov: Normal PP Abdomen/Uterus Prov: Normal PP Lochia Prov: Normal PP Vulva/Perineum Prov: Not Done PP CVA Tenderness Prov: Not Done PP Extremities Prov: Normal PP Progress Prov: Normal PP Impression Prov: Normal progression PP Plan Prov: Continue present management PP Plan Other Prov: will give respiradone for discharge PP Progress Note Prov: S: 27 yo female 38.6 SP NVD on 12/16/17 evaluated on PPD2. Pt is seen and examined at bed side. No acute event overnight. Pt denies pain. Pt have no complain. She was abl e to ambulate and void freely. Pt state that she have passed gas and stool. Lochia is less than mense s. She is and using formula. PT denies fever, chills, diarrhea, nausea/vomiting, chest pain, dyspnea, and dizziness. O: 11.5/34.3-> 10.8/36.1 PSYCH was consulted due bipolar and schizophrenia. They recommend risperidone 2mg As long as Pt do n't breastfeed the . Pt should follow up in [facility] as outpatient clinic with social media editor help. VS: Stable, WNL GEN: NAD Cardio: S1S2, no murmurs or extra heart sound Lungs: clear breath sounds b/l, no wheezing Abdomen: BS+, appropriate tenderness to palpation. Uterus is firm at umbilicus EXT: No edema, calves non-tender NEURO/PSYCH: AAOx3, no grossly focal deficits, preserved affect and mood. H/H (post ): 10.8/32.4 Assessment/Plan: 27 yo female 38.6 SP NVD 12/16/17 evaluated on PPD1. Pt remains afebrile , with no abd pain. Able to eat regular diet. Will be discharged today 12/18/17. Continue with francia t management Keep monitoring lochia, fundus and vitals Continue Ibuprofen 600mg q6 for mild-moderate pain. WIll give respirdone script to take home Will discharge today Case discussed With Dr Alexandro Baptiste1 Attending Note: Patient was discussed with the resident and I agree with the above note.
--- NOTE | 2017-12-19 15:02 | OBDCSUM ---
Datetime: 12/18/2017 08:34 Discharge Comment, Provider: EGA: 38.6wk Diagnosis: NVD risk factors: None : 12/16/2017@3:53 Post- Summary: No complications during post- period. Lochia less than menses. Pt able to pass gas, BM, ambulate and pass urine. Tolerate regular diet, Fundus firm below umbilicus level. CBC post-: 10.8/32.4 Discharge Instructions: PNV 1 tab PO daily Ibuprofen 600mg 1 tab prn for mild-mod pain Will discharge home with risperidone 2mg 1 tab PO daily. Pt Was advised and educated about contrai ndication of with risperidone medication. * Pt state she wont take the medication because she want to breastfeed. Pt was advised that she ne eded the medication for her wellbieng. Pt still denies. Medication prescribed in chart will be given to pt at discharge. ER precautions: If excessive bleeding or fever without relief from medication, go to ED PT was urged if feeling sad, mood swing, depression, neglect of baby, suicidal thoughts, homicidal thought should go to ER or call 911 for help Pt need to follow up with her Psychiatrist F/U 4-6 week for PP visit Case discussed with Dr Alexandro Self PGY1 Attending Note: Patient was seen and discussed with the resident and I agree with the above.
== END 2017-12-18 14:55 | disposition home or self-care (01) | DRG 373 ==
LOC: H.EROB2 21:49 → H.L&D 22:44 → H.OB/GYN 12-16 05:59
PROVIDERS: ADMIT Obstetrics & Gynecology Gynecology; ATTEND Obstetrics & Gynecology Gynecology
PROC: 10E0XZZ Delivery of Products of Conception, External Approach (ICD-10-PCS; principal; 2017-12-16)
DX: O99.344 Other mental disorders complicating childbirth (principal); F25.0 Schizoaffective disorder, bipolar type; Z3A.38 38 weeks gestation of pregnancy; Z37.0 Single live birth; Z87.442 Personal history of urinary calculi; Z90.49 Acquired absence of other specified parts of digestive tract

== ENCOUNTER 2017-12-19 16:22 | Emergency (ER) | payer OTHER ==
[2017-12-19 16:22] VITALS: BMI 24.3
[2017-12-19 16:51] VITALS: RESP 18; TEMP 99.4; O2SAT 99
--- NOTE | 2017-12-19 17:00 | ED PDOC ---
HPI: Female Pain Time Seen by Provider: 12/19/17 16:48 Chief Complaint (Nursing): Breast Problem Chief Complaint (Provider): breast pain History Per: Patient Additional Complaint(s): Pt is a 27 yo female, PMH of Bipolar Disorder and Schizoaffective Disorder, presents to ED due to breast engorgement. Pt delivered on 12/16/17. Pt reports that she initially planned on breast feeding; however, has now decided not to. Pt reports pain and leaking to her breasts. Past Medical History Reviewed: Historical Data, Nursing Documentation, Vital Signs Vital Signs: Last Vital Signs Temp 99.4 F 12/19/17 16:49 Pulse 146 H 12/19/17 16:49 Resp 18 12/19/17 16:49 BP 123/78 12/19/17 16:49 Pulse Ox 99 12/19/17 16:49 - Medical History PMH: Anxiety, Back Problems, Bipolar Disorder, Gall Bladder Disease ( cholecyctectomy), Kidney Stones, Chronic Kidney Disease, Schizophrenia Denies: Depression, Diabetes, Hepatitis, HIV, HTN, Seizures, Sexually Transmitted Disease - Surgical History Surgical History: Cholecystectomy, Tonsillectomy - Family History Family History: States: Unknown Family Hx - Living Arrangements Living Arrangements: Other - Social History Current smoker - smoking cessation education provided: No Alcohol: None Drugs: Denies - Immunization History Hx Tetanus Toxoid Vaccination: No Hx Influenza Vaccination: No Hx Pneumococcal Vaccination: No - Home Medications Home Medications: Ambulatory Orders Medication Instructions Recorded Vit No.126/Iron/Folic 1 tab PO DAILY 12/15/17 [Classic Tablet] Ibuprofen [Motrin Tab] 600 mg PO Q6 PRN #20 tab 12/18/17 Risperidone [Risperdal] 2 mg PO DAILY 30 Days #30 tablet 12/18/17 - Allergies Allergies/Adverse Reactions: Allergies Allergy/AdvReac Type Severity Reaction Status Date / Time No Known Allergies Allergy Verified 12/19/17 16:48 Review of Systems ROS Statement: Except As Marked, All Systems Reviewed And Found Negative Genitourinary Female: Positive for: Other (breast pain) Physical Exam - Reviewed Nursing Documentation Reviewed: Yes Vital Signs Reviewed: Yes - Physical Exam Appears: Positive for: Non-toxic, No Acute Distress, Uncomfortable Head Exam: Positive for: ATRAUMATIC, NORMAL INSPECTION, NORMOCEPHALIC Skin: Positive for: Normal Color, Warm, DRY Eye Exam: Positive for: EOMI, Normal appearance, PERRL ENT: Positive for: Normal ENT Inspection Neck: Positive for: Normal, Painless ROM Cardiovascular/Chest: Positive for: Regular Rate, Rhythm Respiratory: Positive for: CNT, Normal Breath Sounds Gastrointestinal/Abdominal: Positive for: Normal Exam, Soft Pelvic Exam: Positive for: Other (bilateral breast engorgement and (+) leakage. no area of erythema) Back: Positive for: Normal Inspection Extremity: Positive for: Normal ROM Neurologic/Psych: Positive for: Alert, Oriented - ECG O2 Sat by Pulse Oximetry: 99 Medical Decision Making Medical Decision Making: mapping specialist presented to see and evaluate Pt at bedside. See notes. Disposition - Clinical Impression Clinical Impression: Engorgement of breast associated with childbirth, antepartum - Patient ED Disposition Is Patient to be Admitted: No - Disposition Disposition: Routine/Home Disposition Time: 18:27 Condition: STABLE Instructions: Common Problems Forms: [employer] (Nepalese)
[2017-12-19 19:33] VITALS: BP 126/76; PULSE 118
== END 2017-12-19 19:34 | disposition home or self-care (01) ==
LOC: H.ER 16:22
DX: O92.79 Other disorders of lactation (principal)

== ENCOUNTER 2018-04-25 01:23 | Emergency (ER) | payer SELFPAY ==
[2018-04-25 01:24] VITALS: BMI 24.3
--- NOTE | 2018-04-25 02:31 | ED PDOC ---
HPI: General Adult Time Seen by Provider: 04/25/18 02:29 Chief Complaint (Nursing): Abdominal Pain Chief Complaint (Provider): abdominal pain History Per: Patient (28 y/o female here with abdominal pain epigastric x 20 min after eating [employer]. Notes vomiting x 2. Denies any diarrhea.) Past Medical History Reviewed: Historical Data, Nursing Documentation, Vital Signs Vital Signs: Last Vital Signs Temp 97.8 F 04/25/18 01:38 Pulse 89 04/25/18 01:38 Resp 18 04/25/18 01:38 BP 124/86 04/25/18 01:38 Pulse Ox 99 04/25/18 01:38 - Medical History PMH: Anxiety, Back Problems, Bipolar Disorder, Gall Bladder Disease (cholecyctectomy), Kidney Stones, Chronic Kidney Disease, Schizophrenia Denies: Depression, Diabetes, Hepatitis, HIV, HTN, Seizures, Sexually Transmitted Disease - Surgical History Surgical History: Cholecystectomy, Tonsillectomy - Family History Family History: States: Unknown Family Hx - Immunization History Hx Tetanus Toxoid Vaccination: No Hx Influenza Vaccination: No Hx Pneumococcal Vaccination: No - Home Medications Home Medications: Ambulatory Orders Medication Instructions Recorded Vit No.126/Iron/Folic 1 tab PO DAILY 12/15/17 [Classic Tablet] Ibuprofen [Motrin Tab] 600 mg PO Q6 PRN #20 tab 12/18/17 Risperidone [Risperdal] 2 mg PO DAILY 30 Days #30 tablet 12/18/17 - Allergies Allergies/Adverse Reactions: Allergies Allergy/AdvReac Type Severity Reaction Status Date / Time No Known Allergies Allergy Verified 12/19/17 16:48 Review of Systems ROS Statement: Except As Marked, All Systems Reviewed And Found Negative Physical Exam - Reviewed Nursing Documentation Reviewed: Yes Vital Signs Reviewed: Yes - Physical Exam Appears: Positive for: Well, Non-toxic, No Acute Distress Head Exam: Positive for: ATRAUMATIC, NORMAL INSPECTION, NORMOCEPHALIC Skin: Positive for: Normal Color, Warm, DRY Eye Exam: Positive for: EOMI, Normal appearance, PERRL ENT: Positive for: Normal ENT Inspection Neck: Positive for: Normal, Painless ROM Cardiovascular/Chest: Positive for: Regular Rate, Rhythm Respiratory: Positive for: CNT, Normal Breath Sounds Gastrointestinal/Abdominal: Positive for: Normal Exam, Soft, Tenderness (epigastric tenderness) Back: Positive for: Normal Inspection Extremity: Positive for: Normal ROM Neurologic/Psych: Positive for: Alert, Oriented - Laboratory Results Urine POC: Negative - ECG O2 Sat by Pulse Oximetry: 99 - Progress ED Course And Treament: Zofran 4 mg ODT Pepcid 20 mg po x 1 dose Disposition - Clinical Impression Clinical Impression: Gastritis - Patient ED Disposition Is Patient to be Admitted: No - Disposition Referrals: [facility] [Outside] Disposition: Routine/Home Disposition Time: 02:30 Condition: FAIR Instructions: Gastritis (DC)
[2018-04-25 03:23] VITALS: BP 118/80; PULSE 71; RESP 14; TEMP 98.1; O2SAT 100
== END 2018-04-25 03:26 | disposition home or self-care (01) ==
LOC: H.ER 01:23
DX: K29.70 Gastritis, unspecified, without bleeding (principal); Z87.442 Personal history of urinary calculi; Z86.59 Personal history of other mental and behavioral disorders; N18.9 Chronic kidney disease, unspecified

== ENCOUNTER 2018-05-30 12:27 | Emergency (ER) | payer SELFPAY ==
[2018-05-30 12:27] VITALS: BMI 24.3
[2018-05-30 13:18] VITALS: RESP 18; O2SAT 99
[2018-05-30] MEDS ORDERED: Naproxen 500 MG TAB PO STA (14:35)
[2018-05-30] MEDS ORDERED: Promethazine DM 6.25 mg-15 mg/5 ml Syrup PO STA (14:35)
[2018-05-30] MEDS ORDERED: Promethazine DM 6.25 mg-15 mg/5 ml Syrup ONE (15:01)
[2018-05-30] MEDS ORDERED: Naproxen 500 MG TAB PO ONE (15:01)
--- NOTE | 2018-05-30 15:31 | ED PDOC ---
History of Present Illness History of Present Illness: 28 y/o female with no significant PMHx presents to the ED for evaluation of body aches associated with a sore throat, dry cough, chills and left ear pain, onset yesterday. 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 PMD: no provider LNMP: 05/27/2018 HPI: Influenza Time Seen by Provider: 05/30/18 14:24 Chief Complaint: Flu-like Symptoms Chief Complaint (Provider): Flu-like Symptoms History Per: Patient Exam Limitations: no limitations Have you had recent travel within the past 21 days to any of: No Onset/Duration Of Symptoms: Days (x1) Symptoms include: bodyaches, sore throat, cough. denies: fever Sick Contacts (Context): None Past Medical History Reviewed: Historical Data, Nursing Documentation, Vital Signs Vital Signs: Last Vital Signs Temp 98.7 F 05/30/18 13:16 Pulse 89 05/30/18 13:16 Resp 18 05/30/18 13:16 BP 109/74 05/30/18 13:16 Pulse Ox 99 05/30/18 13:16 - Medical History PMH: Anxiety, Back Problems, Bipolar Disorder, Gall Bladder Disease (cholecyctectomy), Kidney Stones, Schizophrenia - Surgical History Surgical History: Cholecystectomy, Tonsillectomy - Family History Family History: States: Unknown Family Hx - Social History Current smoker - smoking cessation education provided: Yes (2-3 cigarettes per day) Alcohol: None Drugs: Denies - Home Medications Home Medications: Ambulatory Orders Medication Instructions Recorded RX: Vit No.126/Iron/Folic 1 tab PO DAILY 12/15/17 [Classic Tablet] RX: Ibuprofen [Motrin Tab] 600 mg PO Q6 PRN #20 tab 12/18/17 Risperidone [Risperdal] 2 mg PO DAILY 30 Days #30 tablet 12/18/17 Acetaminophen [Acetaminophen 8 650 mg PO Q8 PRN #21 tablet.er 05/30/18 Hour] Promethazine DM [Phenergan DM 5 ml PO Q6 PRN #150 ml 05/30/18 Syrup] RX: Naproxen 500 mg PO BID PRN #20 tab 05/30/18 - Allergies Allergies/Adverse Reactions: Allergies Allergy/AdvReac Type Severity Reaction Status Date / Time No Known Allergies Allergy Verified 05/30/18 13:18 Review of Systems ROS Statement: Except As Marked, All Systems Reviewed And Found Negative Constitutional: Positive for: Chills, Other (body aches). Negative for: Fever ENT: Positive for: Ear Pain, Throat Pain Respiratory: Positive for: Cough Gastrointestinal: Negative for: Vomiting, Abdominal Pain Physical Exam - Reviewed Nursing Documentation Reviewed: Yes Vital Signs Reviewed: Yes - Physical Exam Comments: GENERAL APPEARANCE: Patient is awake, alert, not toxic appearing, in no acute distress. Resting comfortably. SKIN: Warm, dry; (-) cyanosis; (-) petechiae, (-) rash EYES: (-) conjunctival pallor, (-) icterus. ENMT: TMs (-) erythema, (-) bulging. Pharynx: clear, uvula midline (+) faint pharyngeal erythema (-) exudate. Airway patent, (-) stridor. Mucous membranes moist.(-) sinus tenderness NECK: Supple, FROM (-) stiffness, (-) meningismus, (-) lymphadenopathy. CHEST AND RESPIRATORY: (-) retractions, (-) rales, (-) rhonchi, (-) wheezes; breath sounds equal bilaterally. Respirations even and nonlabored. HEART AND CARDIOVASCULAR: (-) irregularity ABDOMEN AND GI: Soft; (-) tenderness; (-) distention, (-) guarding EXTREMITIES: (-) deformity NEURO AND PSYCH: Mental status as above. Gait: steady. Speech: clear. (-) facial asymmetry (-) aphasia Medical Decision Making Medical Decision Making: Time: 1435 Impression: Body aches, sore throat, cough, likely viral syndrome. Plan: -- Naproxen 500 mg PO -- Phenergan DM Syrup -- Throat Culture -- Influenza A B -- Rapid Strep Group A Antigen 1615 Rapid Strep: Negative Influenza: Negative On re-evaluation, patient reports improvement of symptoms. On exam, patient remains AAOx3, in no acute distress. Vitals stable. Lab/Diagnostic results d/w the patient in great detail. Diagnosis of cough, bodyaches, sore throat, likely viral syndrome d/w the patient. Based on history, exam and diagnostic results, plan will be for outpatient follow up with PMD/clinic. Patient instructed to follow-up with pmd / referral provided / the clinic in 1- 2 days without fail. Advised to take medication as prescribed. Return to the emergency room at any time for any new or worsening symptoms. Patient states she fully agrees with and understands discharge instructions. States that she agrees with the plan and disposition. Verbalized and repeated discharge instructions and plan. I have given the patient opportunity to ask any additional questions. Scribe Attestation: Documented by Amandeep Hdz, acting as a scribe David Seaman PA-C. Provider Scribe Attestation: All medical record entries made by the Scribe were at my direction and personally dictated by me. I have reviewed the chart and agree that the record accurately reflects my personal performance of the history, physical exam, medical decision making, and the department course for this patient. I have also personally directed, reviewed, and agree with the discharge instructions and disposition. - ECG O2 Sat by Pulse Oximetry: 99 (RA) Pulse Ox Interpretation: Normal Disposition - Clinical Impression Clinical Impression: Sore throat, Body aches, Viral pharyngitis, Viral URI with cough - Patient ED Disposition Is Patient to be Admitted: No Counseled Patient/Family Regarding: Studies Performed, Diagnosis, Need For Followup, Rx Given - Disposition Referrals: [facility] [Outside] Disposition: Routine/Home Disposition Time: 16:15 Condition: STABLE Additional Instructions: The emergency medical care you received today was directed at your acute symptoms. If you were prescribed any medication, please fill it and take as dire cted. It may take several days for your symptoms to resolve. Return to the Emergency Department if your symptoms worsen, do not improve, or if you have any other problems. Please contact your doctor in 2 days for re-evaluation and follow up / or call one of the physicians/clinics you have been referred to that are listed on the Patient Visit Information form that is included in your discharge packet. Bring any paperwork you were given at discharge with you along with any medications you are taking to your follow up visit. Our treatment cannot replace ongoing medical care by a primary care provider (PCP) outside of the emergency department. Prescriptions: Acetaminophen [Acetaminophen 8 Hour] 650 mg PO Q8 PRN #21 tablet.er PRN Reason: pain/fever RX: Naproxen 500 mg PO BID PRN #20 tab PRN Reason: Pain, Moderate (4-7) Promethazine DM [Phenergan DM Syrup] 5 ml PO Q6 PRN #150 ml PRN Reason: Cough Instructions: Viral Pharyngitis, Sore Throat in Adults, Viral Upper Respiratory Infection, Adult (DC), Viral Syndrome (DC) Forms: [employer] (Slovak) Print Language: PORTUGUESE - POA Present On Arrival: None Results - Lab Results Lab Results: 05/30/18 05/30/18 15:30 15:30 Influenza Typ A,B (EIA) Negative for flu a/b Grp A Beta Strep Ag Negative
[2018-05-30 16:22] VITALS: BP 109/68; PULSE 75; TEMP 98.2
== END 2018-05-30 16:28 | disposition home or self-care (01) ==
LOC: H.ER 12:27
DX: J06.9 Acute upper respiratory infection, unspecified (principal); J02.9 Acute pharyngitis, unspecified; M79.18 Myalgia, other site; F31.9 Bipolar disorder, unspecified

== ENCOUNTER 2018-07-07 15:29 | Emergency (ER) | payer MEDICAID, OTHER ==
[2018-07-07 15:29] VITALS: BMI 24.3
[2018-07-07 15:39] VITALS: O2SAT 100
[2018-07-07] MEDS ORDERED: Alum-Mag Hydrox-Simethicone Susp (30 mL) PO STA ×2 (16:10→17:02)
--- NOTE | 2018-07-07 16:18 | ED PDOC ---
HPI: General Adult Time Seen by Provider: 07/07/18 16:12 Chief Complaint (Nursing): Abdominal Pain Chief Complaint (Provider): abdominal pain History Per: Patient (28 y/o female here with epigastric pain associated with one episode of vomiting. No diarrhea/fevers/chills. Has h/o cholecystectomy. M1 but no concern of currently. Notes eating [employer] prior to onset of symptoms. No OTC medications taken.) Past Medical History Reviewed: Historical Data, Nursing Documentation, Vital Signs Vital Signs: Last Vital Signs Temp 98.3 F 07/07/18 15:37 Pulse 73 07/07/18 15:37 Resp 16 07/07/18 15:37 BP 110/75 07/07/18 15:37 Pulse Ox 100 07/07/18 15:37 - Medical History PMH: Anxiety, Back Problems, Bipolar Disorder, Gall Bladder Disease (cholecyctectomy), Kidney Stones, Chronic Kidney Disease, Schizophrenia Denies: Depression, Diabetes, Hepatitis, HIV, HTN, Seizures, Sexually Transmitted Disease - Surgical History Surgical History: Cholecystectomy, Tonsillectomy - Family History Family History: States: Unknown Family Hx - Immunization History Hx Tetanus Toxoid Vaccination: No Hx Influenza Vaccination: No Hx Pneumococcal Vaccination: No - Home Medications Home Medications: Ambulatory Orders Medication Instructions Recorded Vit No.126/Iron/Folic 1 tab PO DAILY 12/15/17 [Classic Tablet] Ibuprofen [Motrin Tab] 600 mg PO Q6 PRN #20 tab 12/18/17 Risperidone [Risperdal] 2 mg PO DAILY 30 Days #30 tablet 12/18/17 Acetaminophen [Acetaminophen 8 650 mg PO Q8 PRN #21 tablet.er 05/30/18 Hour] Naproxen 500 mg PO BID PRN #20 tab 05/30/18 Promethazine DM [Phenergan DM 5 ml PO Q6 PRN #150 ml 05/30/18 Syrup] Ondansetron ODT [Zofran ODT] 4 mg PO Q8 PRN #10 odt 07/07/18 Multivit/Folic Acid/I 1 tab PO DAILY #30 tab 07/07/18 [ Plus] - Allergies Allergies/Adverse Reactions: Allergies Allergy/AdvReac Type Severity Reaction Status Date / Time No Known Allergies Allergy Verified 07/07/18 15:36 Review of Systems ROS Statement: Except As Marked, All Systems Reviewed And Found Negative Physical Exam - Reviewed Nursing Documentation Reviewed: Yes Vital Signs Reviewed: Yes - Physical Exam Appears: Positive for: Well, Non-toxic, No Acute Distress Head Exam: Positive for: ATRAUMATIC, NORMAL INSPECTION, NORMOCEPHALIC Skin: Positive for: Normal Color, Warm, DRY Eye Exam: Positive for: EOMI, Normal appearance, PERRL ENT: Positive for: Normal ENT Inspection Neck: Positive for: Normal, Painless ROM Cardiovascular/Chest: Positive for: Regular Rate, Rhythm Respiratory: Positive for: CNT, Normal Breath Sounds Gastrointestinal/Abdominal: Positive for: Normal Exam, Soft Back: Positive for: Normal Inspection Extremity: Positive for: Normal ROM Neurological/Psych: Positive for: Awake, Alert, Normal Tone - Laboratory Results Result Diagrams: 07/07/18 17:38 07/07/18 17:38 - ECG O2 Sat by Pulse Oximetry: 100 - Progress ED Course And Treament: us: 7 wk 3 day SLIUP; small left ovarian cyst; small subchorionic hemorrhge. Disposition - Clinical Impression Clinical Impression: Subchorionic hemorrhage, Threatened miscarriage - Patient ED Disposition Is Patient to be Admitted: No - Disposition [facility]errals[facility] [[facility]] Disposition: Routine/Home Disposition Time: 18:33 Condition: FAIR Prescriptions: Ondansetron ODT [Zofran ODT] 4 mg PO Q8 PRN #10 odt PRN Reason: Nausea/Vomiting Multivit/Folic Acid/I [ Plus] 1 tab PO DAILY #30 tab Instructions: Threatened Miscarriage (DC)
[2018-07-07] MEDS ORDERED: Alum-Mag Hydrox-Simethicone Susp (30 mL) ONE (16:30)
[2018-07-07] MEDS ORDERED: Sodium Chloride 0.9% 1,000 ML IV STA (16:46)
--- NOTE | 2018-07-07 17:40 | US ---
Date of service: 07/07/2018 PROCEDURE: ultrasound HISTORY: r/o ectopic ;epigstric pain in COMPARISON: None TECHNIQUE: Standard protocol for this study/examination. FINDINGS: LMP: Unknown Prior examinations from the current : None TECHNIQUE: Real-time 2D imaging, duplex and color Doppler. FINDINGS: Cardiac activity: Present Rate: 162 BPM Measurements: [place] rump length: 1.30 cm Gestational age based on CRL 7 weeks 4 days Gestational age 7 weeks 1 day based on gestational sac measurement 2.46 cm Gestational age derived from LMP: Unknown GENA based on LMP: Cannot be ascertained based in the absence of a reliable/ known LMP GENA based on biometry: 02/20/2019 Gestational concordance cannot be determined Yolk sac . identified Cervix: No Cervical abnormalities: Negative examination for cervical dilatation or effacement. Closed cervix measuring 3.95 cm Subchorionic hemorrhage: Small subchorionic hemorrhage to the left of the midline adjacent to the gestational sac measures 7 x 9 x 10 mm. UTERUS: 5.6 x 7.2 x 9.9 cm. ADNEXA: Right: 1.9 x 2.5 x 2.4 cm. Small cyst/follicle 1.1 x 1.2 cm. Normal Doppler arterial waveform documented. Left: cm. Normal Doppler arterial waveform documented Fluid in the cul-de-sac: IMPRESSION: Single live intrauterine gestation. Gestational age 7 weeks 3 days with an GENA of 02/20/2019. Cannot be ascertained based in the absence of a reliable/ known LMP
[2018-07-07 17:59] LABS: BASO % 0.4 % (0.0-2.0); EOS # 0.2 K/uL (0.0-0.7); EOS % 2.1 % (0.0-4.0); HEMOGLOBIN 11.5 g/dL (12.0-16.0); LYMPH # 2.5 K/uL (1.0-4.3); MEAN CELL VOLUME 94.1 fl (81.0-99.0); MEAN CORPUSCULAR HEMOGLOBIN 31.6 pg (27.0-31.0); MEAN CORPUSCULAR HGB CONC 33.6 g/dL (33.0-37.0); MEAN PLATELET VOLUME 8.7 fl (7.2-11.7); MONO # 0.7 K/uL (0.0-0.8); MONO % 6.9 % (0.0-10.0); NEUT # 6.3 K/uL (1.8-7.0); NEUT % 64.6 % (50.0-75.0); RBC 3.64 Mil/uL (3.80-5.20); RED CELL DISTRIBUTION WIDTH 13.4 % (11.5-14.5); WHITE BLOOD COUNT 9.7 K/uL (4.8-10.8)
[2018-07-07 18:05] LABS: ALB/GLOB RATIO 1.2 (1.0-2.1); ALBUMIN 4.4 g/dL (3.5-5.0); ALT/SGPT 17 U/L (9-52); AST/SGOT 32 U/L (14-36); BLOOD UREA NITROGEN 8 mg/dl (7-17); CALCIUM 9.5 mg/dL (8.4-10.2); GFR NON-AFRICAN AMERICAN > 60
[2018-07-07 19:17] VITALS: BP 110/70; PULSE 72; RESP 17; TEMP 98.1
== END 2018-07-07 19:02 | disposition home or self-care (01) ==
LOC: H.ER 15:29
DX: O20.0 Threatened abortion (principal); Z3A.01 Less than 8 weeks gestation of pregnancy; N83.202 Unspecified ovarian cyst, left side; O20.8 Other hemorrhage in early pregnancy

== ENCOUNTER 2018-07-19 06:45 | Emergency (ER) | payer MEDICAID ==
[2018-07-19 06:46] VITALS: BMI 24.3
[2018-07-19] MEDS ORDERED: Sodium Chloride 0.9% 1,000 ML IV STA (07:14)
--- NOTE | 2018-07-19 07:21 | ED PDOC ---
HPI: Abdomen Time Seen by Provider: 07/19/18 07:06 Chief Complaint (Nursing): GI Problem Chief Complaint (Provider): Vomiting History Per: Patient History/Exam Limitations: no limitations Outside of [place] travel?: No Current Symptoms Are (Timing): Still Present Location Of Pain/Discomfort: Epigastric. denies: RLQ, LLQ, Suprapubic Associated Symptoms: Vomiting (x 1). denies: Fever, Chills, Nausea, Diarrhea, Back Pain, Chest Pain, Constipation, Urinary Symptoms Additional History Per: Patient Additional Complaint(s): 28yo female, EGA of 9 weeks, comes to ER reporting she had an episode of blood tinged vomit this morning. She also reports associated upper abdominal pain but denies any lower abdominal pain, vaginal bleeding or discharge. She denies multiple episodes of vomiting as well. Patient seen in this ER on 07/07 for similar complaints and had an US at that time which indicated 7 wk 3 day SLIUP; small left ovarian cyst; small subchorionic hemorrhge. No other complaints at this time. PMD: Unable to remember name Past Medical History Reviewed: Historical Data, Nursing Documentation, Vital Signs Vital Signs: Last Vital Signs Temp 98.7 F 07/19/18 06:54 Pulse 87 07/19/18 06:54 Resp 18 07/19/18 06:54 BP 107/71 07/19/18 06:54 Pulse Ox 100 07/19/18 06:54 - Medical History PMH: Anxiety, Back Problems, Bipolar Disorder, Gall Bladder Disease (cholecyctectomy), Kidney Stones, Chronic Kidney Disease, Schizophrenia Denies: Depression, Diabetes, Hepatitis, HIV, HTN, Seizures, Sexually Transmitted Disease - Surgical History Surgical History: Cholecystectomy, Tonsillectomy - Family History Family History: States: Unknown Family Hx - Immunization History Hx Tetanus Toxoid Vaccination: No Hx Influenza Vaccination: No Hx Pneumococcal Vaccination: No - Home Medications Home Medications: Ambulatory Orders Medication Instructions Recorded Vit No.126/Iron/Folic 1 tab PO DAILY 12/15/17 [Classic Tablet] Ibuprofen [Motrin Tab] 600 mg PO Q6 PRN #20 tab 12/18/17 Risperidone [Risperdal] 2 mg PO DAILY 30 Days #30 tablet 12/18/17 Acetaminophen [Acetaminophen 8 650 mg PO Q8 PRN #21 tablet.er 05/30/18 Hour] Naproxen 500 mg PO BID PRN #20 tab 05/30/18 Promethazine DM [Phenergan DM 5 ml PO Q6 PRN #150 ml 05/30/18 Syrup] Ondansetron ODT [Zofran ODT] 4 mg PO Q8 PRN #10 odt 07/07/18 Multivit/Folic Acid/I 1 tab PO DAILY #30 tab 07/07/18 [ Plus] - Allergies Allergies/Adverse Reactions: Allergies Allergy/AdvReac Type Severity Reaction Status Date / Time No Known Allergies Allergy Verified 07/07/18 15:36 Review of Systems ROS Statement: Except As Marked, All Systems Reviewed And Found Negative Constitutional: Negative for: Fever, Chills Cardiovascular: Negative for: Chest Pain Respiratory: Negative for: Shortness of Breath Gastrointestinal: Positive for: Vomiting (x 1 episode blood tinged), Abdominal Pain (minimal abdominal pain) Genitourinary Female: Negative for: Dysuria, Frequency, Hematuria, Vaginal Discharge, Vaginal Bleeding, Pelvic Pain Physical Exam - Reviewed Nursing Documentation Reviewed: Yes Vital Signs Reviewed: Yes - Physical Exam Appears: Positive for: Non-toxic, No Acute Distress Head Exam: Positive for: ATRAUMATIC, NORMAL INSPECTION, NORMOCEPHALIC Skin: Positive for: Normal Color Eye Exam: Positive for: Normal appearance Neck: Positive for: Supple Cardiovascular/Chest: Positive for: Regular Rate, Rhythm. Negative for: Tachycardia Respiratory: Positive for: Normal Breath Sounds. Negative for: Respiratory Distress Gastrointestinal/Abdominal: Positive for: Normal Exam, Soft. Negative for: Tend erness (no lower abdominal tenderness as well), Mass, Guarding, Rebound Back: Positive for: Normal Inspection. Negative for: L CVA Tenderness, R CVA Tenderness Extremity: Positive for: Normal ROM. Negative for: Pedal Edema, Deformity Neurological/Psych: Positive for: Awake, Alert, Oriented (x 3) Comments: Patient laughing, using phone during entire exam. - Laboratory Results Result Diagrams: 07/19/18 07:35 07/19/18 07:35 Lab Results: no acute - ECG O2 Sat by Pulse Oximetry: 100 (RA) Pulse Ox Interpretation: Normal Medical Decision Making Medical Decision Making: Abdominal pain, 1 episode of hemoptysis Plan: -- Labs -- Reglan 10mg IV -- IV Fluids ScribeAttestation: Documented byDanay Teixeira, acting as a scribe for Perez Peetrs MD. Provider ScribeAttestation: All medical record entries made by the Scribe were at my direction and personally dictated by me. I have reviewed the chart and agree that the record accurately reflects my personal performance of the history, physical exam, medical decision making, and the department course for this patient. I have also personally directed, reviewed, and agree with the discharge instructions and disposition. 920: Stable. AAOx3. Pain free. Tolerated po with no issues. Fu with pcp. Disposition - Clinical Impression Clinical Impression: Hyperemesis gravidarum - Patient ED Disposition Is Patient to be Admitted: No Counseled Patient/Family Regarding: Studies Performed, Diagnosis, Need For Followup - Disposition Referrals: [facility] [Outside] - 07/20/18 Disposition: Routine/Home Disposition Time: 09:21 Condition: STABLE Additional Instructions: Return if not better in 3 days. Instructions: Hyperemesis Gravidarum Forms: [facility] ED School/Work Excuse
[2018-07-19 07:38] LABS: BASO % 0.4 % (0.0-2.0); EOS # 0.2 K/uL (0.0-0.7); EOS % 3.2 % (0.0-4.0); HEMOGLOBIN 11.7 g/dL (12.0-16.0); LYMPH # 1.5 K/uL (1.0-4.3); LYMPH % 19.9 % (20.0-40.0); MEAN CELL VOLUME 95.7 fl (81.0-99.0); MEAN CORPUSCULAR HEMOGLOBIN 31.3 pg (27.0-31.0); MEAN CORPUSCULAR HGB CONC 32.7 g/dL (33.0-37.0); MEAN PLATELET VOLUME 8.8 fl (7.2-11.7); MONO # 0.5 K/uL (0.0-0.8); NEUT # 5.4 K/uL (1.8-7.0); NEUT % 70.5 % (50.0-75.0); RBC 3.73 Mil/uL (3.80-5.20); RED CELL DISTRIBUTION WIDTH 13.7 % (11.5-14.5); WHITE BLOOD COUNT 7.6 K/uL (4.8-10.8)
[2018-07-19 07:52] LABS: BLOOD UREA NITROGEN 10 mg/dl (7-17); CALCIUM 9.2 mg/dL (8.4-10.2); GFR NON-AFRICAN AMERICAN > 60
[2018-07-19 09:41] VITALS: BP 110/68; PULSE 85; RESP 19; TEMP 98.6; O2SAT 98
== END 2018-07-19 09:59 | disposition home or self-care (01) ==
LOC: H.ER 06:45
DX: O21.0 Mild hyperemesis gravidarum (principal); Z86.59 Personal history of other mental and behavioral disorders; N18.9 Chronic kidney disease, unspecified; Z87.442 Personal history of urinary calculi
CPT/HCPCS: 80048; 83690; 84702; 85025; 96374; 99285; J2765; J7030

== ENCOUNTER 2018-08-28 21:32 | Emergency (ER) | payer MEDICAID ==
[2018-08-28 21:36] VITALS: BMI 23.8
[2018-08-28 21:38] VITALS: RESP 18; TEMP 98.5; O2SAT 99
--- NOTE | 2018-08-28 22:43 | ED PDOC ---
Upper Extremity Pain/Injury Time Seen by Provider: 08/28/18 22:14 Chief Complaint (Nursing): Finger,Hand,&Wrist History Per: Patient Additional Complaint(s): Pt. states earlier today she was wearing high heels and tripped and injured her R thumb. Pt states her "thumb went back." Of note, pt. states she is currently but did not experience and abdominal, pelvic, or back trauma. Denies numbness, tingling, vaginal bleeding, pelvic pain, abdominal pain, other injury. Past Medical History Reviewed: Historical Data, Nursing Documentation, Vital Signs Vital Signs: Last Vital Signs Temp 98.5 F 08/28/18 21:37 Pulse 92 H 08/28/18 21:37 Resp 18 08/28/18 21:37 BP 98/67 L 08/28/18 21:37 Pulse Ox 99 08/28/18 21:37 Primary Care Provider: Non [facility] Provider, - Medical History PMH: Anxiety, Back Problems, Bipolar Disorder, Gall Bladder Disease (cholecyctectomy), Kidney Stones, Chronic Kidney Disease, Schizophrenia Denies: Depression, Diabetes, Hepatitis, HIV, HTN, Seizures, Sexually Transmitted Disease - Surgical History Surgical History: Cholecystectomy, Tonsillectomy - Family History Family History: States: No Known Family Hx - Immunization History Hx Tetanus Toxoid Vaccination: No Hx Influenza Vaccination: No Hx Pneumococcal Vaccination: No - Home Medications Home Medications: Ambulatory Orders Medication Instructions Recorded Vit No.126/Iron/Folic 1 tab PO DAILY 12/15/17 [Classic Tablet] Ibuprofen [Motrin Tab] 600 mg PO Q6 PRN #20 tab 12/18/17 Risperidone [Risperdal] 2 mg PO DAILY 30 Days #30 tablet 12/18/17 Acetaminophen [Acetaminophen 8 650 mg PO Q8 PRN #21 tablet.er 05/30/18 Hour] Naproxen 500 mg PO BID PRN #20 tab 05/30/18 Promethazine DM [Phenergan DM 5 ml PO Q6 PRN #150 ml 05/30/18 Syrup] Ondansetron ODT [Zofran ODT] 4 mg PO Q8 PRN #10 odt 07/07/18 Multivit/Folic Acid/I 1 tab PO DAILY #30 tab 07/07/18 [ Plus] - Allergies Allergies/Adverse Reactions: Allergies Allergy/AdvReac Type Severity Reaction Status Date / Time No Known Allergies Allergy Verified 07/07/18 15:36 Review of Systems ROS Statement: Except As Marked, All Systems Reviewed And Found Negative Physical Exam - Physical Exam Appears: Positive for: Well, Non-toxic, No Acute Distress Skin: Positive for: Normal Color, Warm. Negative for: Rash Eye Exam: Positive for: Normal appearance Pulses-Radial (L): 2+ Pulses-Radial (R): 2+ Extremity: Positive for: Other (R thumb with minimal tenderness over 1st MCP without swelling or deformity; FROM of R thumb actively but with pain; no R hand or R snuffbox tenderness; no deformity to R thumb) Neurological/Psych: Positive for: Awake, Alert, Oriented (x3). Negative for: Motor/Sensory Deficits (of R hand) - ECG O2 Sat by Pulse Oximetry: 99 - Radiology X-Ray: Interpreted by Me (R thumb xray) X-Ray Interpretation: No Acute Disease - Progress ED Course And Treament: Tyenol 975mg PO, R thumb x-ray ordered. Pt. informed that although she will be shielded for x-ray there is still a radiation risk exposure to her baby. Pt. accepts and understands risks. R thumb immobilized in preformed velcro thumb-spica splint applied by PA. Advised to take Tylenol for pain and is to f/u with ortho for further evaluation if pain persists. Disposition - Clinical Impression Clinical Impression: Thumb injury - Patient ED Disposition Is Patient to be Admitted: No - Disposition Referrals: [facility] at [Outside] [facility] [Outside] Disposition: Routine/Home Disposition Time: 22:42 Condition: STABLE Additional Instructions: FOLLOW UP WITH PMD OR ORTHO FOR FURTHER EVALUATION RETURN TO ED IMMEDIATELY IF SYMPTOMS WORSEN DAYO WONG, thank you for letting us take care of you today. Your provider was Darby Pacheco MD and you were treated for RIGHT THUMB INJURY. The emergency medical care you received today was directed at your acute symptoms. If you were prescribed any medication, please fill it and take as directed. It may take several days for your symptoms to resolve. Return to the Emergency Department if your symptoms worsen, do not improve, or if you have any other problems. Please contact your doctor or call one of the physicians/clinics you have been referred to that are listed on the Patient Visit Information form that is included in your discharge packet. Bring any paperwork you were given at discharge with you along with any medications you are taking to your follow up visit. Our treatment cannot replace ongoing medical care by a primary care provider outside of the emergency department. Thank you for allowing the [facility] team to be part of your care today. If you had an X-Ray or CT scan: A Radiologist will review the ED reading if any change in treatment is needed we will contact you. If you had a blood, urine, or wound culture: It will take several days for the results, if any change in treatment is needed we will contact you. If you had an STI test: It will take 48 hours for the results. Please call after 1 week if you have not heard back. Instructions: Finger Sprain (DC) Forms: [employer] (Chilean) Print Language: YAKUT
[2018-08-28 22:47] VITALS: BP 103/65; PULSE 87
--- NOTE | 2018-08-29 08:46 | RAD ---
Date of service: 08/28/2018 PROCEDURE: Right Thumb radiographs. HISTORY: trauma COMPARISON: None. TECHNIQUE: AP radiograph of the right hand, as well as spot oblique and lateral images of thumb were obtained. 3 views obtained. FINDINGS: RIGHT THUMB: Normal right thumb, without fracture or focal lesion. Remainder of the right hand (as seen on the AP view) grossly unremarkable. JOINTS: Normal. SOFT TISSUES: Normal. OTHER FINDINGS: None. IMPRESSION: Normal right thumb radiographs.
== END 2018-08-28 22:45 | disposition home or self-care (01) ==
LOC: H.ER 21:32
DX: S69.91XA Unspecified injury of right wrist, hand and finger(s), initial encounter (principal); W01.0XXA Fall on same level from slipping, tripping and stumbling without subsequent striking against object, initial encounter; Z86.59 Personal history of other mental and behavioral disorders; N18.9 Chronic kidney disease, unspecified; Z87.442 Personal history of urinary calculi